=== PATIENT | male | born 1930 | race Native Hawaiian/Other Pacific Islander ===

== ENCOUNTER 2016-12-23 17:31 | Inpatient (IN) | payer MEDICARE, OTHER ==
[2016-12-23] MEDS ORDERED: TORAdol 30 mg Injection IV ONE (17:33)
[2016-12-23] MEDS ORDERED: Adacel Vial IM ONE ×2 (17:33→17:59)
[2016-12-23] MEDS ORDERED: BACIGUENT PACKET TP ONE (17:35)
--- NOTE | 2016-12-23 17:41 | ERPHSYRPT ---
- History of Present Illness Time Seen by Provider: 12/23/16 17:33 Source: patient, family Exam Limitations: no limitations Physician History: patient moving his chair on the wooden porch approximately 2 hrs ago today and fell onto his left hip from a standing position; now with pain in left hip only ; denies other injury or problems; hurts when he moves his left leg;cant bear wt. no loc; no blossom hx; no cp or inc sob; no abd pain or N&V; no incontinence; no numbness or paraesthsia Method of Injury: fell Occurred: just prior to arrival, this afternoon, hours ago (2) Quality: constant, aching Severity of Pain-Max: severe Severity of Pain-Current: moderate Lower Extremities Pain: hip: left Modifying Factors: Improves With: immobilization (helps), movement (aggravates) Associated Symptoms: unable to bear weight Allergies/Adverse Reactions: No Known Drug Allergies Allergy (Unverified 12/23/16 17:57) Home Medications: Acetaminophen [Tylenol Extra Strength] 1,000 mg PO DAILY 12/23/16 [History] Meloxicam 7.5 mg [Mobic 7.5 MG] 7.5 mg PO DAILY 12/23/16 [History] Vit A/C/E AC/Znox/Cupric Oxide [Eye Vitamin-Minerals Tablet] 1 each PO DAILY [History] Hx Tetanus, Diphtheria Vaccination/Date Given: No - Review of Systems Constitutional: No Symptoms Eyes: No Symptoms Ears, Nose, & Throat: No Symptoms Respiratory: No Cough, No Dyspnea, No Wheezing Cardiac: No Chest Pain, No Palpitations, No Syncope Abdominal/Gastrointestinal: No Abdominal Pain, No Nausea, No Vomiting, No Diarrhea Genitourinary Symptoms: No Symptoms Musculoskeletal: Fall, Injury (left hip), Joint Pain (left hip) Skin: Other (abrasion anterior right and left knee minor) Neurological: No Symptoms Psychological: No Symptoms Endocrine: No Symptoms Hematologic/Lymphatic: No Symptoms Immunological/Allergic: No Symptoms - Past Medical History Pertinent Past Medical History: Yes ENT History: Macular Degeneration Respiratory History: Emphysema - Past Surgical History Past Surgical History: Yes Genitourinary: Other (testicular resection) - Social History Smoking Status: Current some day smoker Exposure to second hand smoke: Yes Alcohol Use: None Drug Use: none Patient Lives Alone: No Significant Family History: no pertinent family hx - Nursing Vital Signs Nursing Vital Signs: Initial Vital Signs Temperature 97.9 F 12/23/16 17:33 Pulse Rate 111 H 12/23/16 17:33 Respiratory Rate 18 12/23/16 17:33 Blood Pressure 162/102 12/23/16 17:33 O2 Sat by Pulse Oximetry 95 12/23/16 17:33 Pain Scale Pain Intensity 3 - Physical Exam General Appearance: moderate distress, alert, thin Eyes, Ears, Nose, Throat Exam: normal ENT inspection, TMs normal, pharynx normal , moist mucous membranes Neck Exam: normal inspection, non-tender, supple, full range of motion, No meningismus, No JVD, No subcutaneous emphysema, No tenderness midline Cardiovascular/Respiratory Exam: chest non-tender, regular rate/rhythm, heart sounds normal, no ecchymosis, no JVD, no M/R/G, decreased breath sounds, No normal breath sounds, No no respiratory distress (mild tachypnea chronic) Gastrointestinal/Abdominal Exam: non-tender, soft, no organomegaly Back Exam: normal inspection, normal range of motion, No CVA tenderness, No vertebral tenderness, No rash Hips Exam: right: non-tender, normal range of motion, no evidence of injury, left: bone tenderness, limited range of motion, pain, bilateral: normal inspection, other (no pain or instability with pelvic rock ) Legs Exam: bilateral leg: non-tender, normal inspection, normal range of motion , no evidence of injury Knees Exam: bilateral knee: non-tender, normal inspection, normal range of motion, no evidence of injury, other (minor superficial abrasion bilateral ant) Ankle Exam: bilateral ankle: non-tender, normal inspection, normal range of motion, no evidence of injury Foot Exam: bilateral foot: non-tender, normal inspection, normal range of motion , no evidence of injury DTR - Lower Extremities Exam: knee (R): 4+, knee (L): 4+ Neuro/Tendon Exam: normal sensation, normal motor functions, normal tendon functions, responds to pain, no evidence tendon injury Mental Status Exam: alert, oriented x 3, cooperative Skin Exam: normal color, warm, dry, abrasion (minor bilateral distal naterior knees; non tender; also post left elbow), No rash SpO2 Interpretation: normal SpO2: 96 Oxygen Delivery: Room Air - Course Nursing assessment & vital signs reviewed: Yes - Radiology Exams Left Hip X-ray Interpretation: Interpreted by me, Nml Soft Tissues, Other (possible cortical irregualrity may be a non- displaced surgical neck fx left) Ordered Tests: Active Orders 24 hr Category Date Time Status Bedrest ROUTINE Activity 12/23/16 18:44 Ordered Admission/Status Order ROUTINE Care 12/23/16 18:42 Ordered Code Status Order ROUTINE Care 12/23/16 18:42 Ordered Fall Protocol ROUTINE Care 12/23/16 18:44 Ordered IV Care Q6H Care 12/23/16 18:42 Ordered IV Insertion STAT Care 12/23/16 17:33 Active Wound Care Routine Care 12/23/16 17:33 Active Regular Diet Diet 12/23/16 Breakfast Ordered HIP UNI (2V) INCL PEL IF DONE Stat Exams 12/23/16 17:33 Taken PELVIS WITHOUT CONTRAST [CT] Stat Exams 12/23/16 18:41 Ordered BMP Stat Lab 12/23/16 18:42 Ordered CBC W DIFF Stat Lab 12/23/16 18:42 Ordered Transfer Order Routine Transfer 12/23/16 Ordered Medication Summary Generic Name Dose Route Start Last Admin Trade Name Freq PRN Reason Stop Dose Admin Sodium Chloride 1,000 mls @ 50 mls/hr 12/23/16 17:45 12/23/16 18:05 Sodium Chloride 0.9% 1000 Ml IV 01/22/17 17:44 50 mls/hr .Q20H JAIME Administration Discontinued Medications Generic Name Dose Route Start Last Admin Trade Name Freq PRN Reason Stop Dose Admin Bacitracin 0.9 gm 12/23/16 17:35 12/23/16 18:04 Baciguent Packet TP 12/23/16 17:36 0.9 gm STAT ONE Administration Bacitracin Confirm 12/23/16 17:58 Baciguent Packet Administered 12/23/16 17:59 Dose 1 gm .ROUTE .STK-MED ONE Diphtheria/Tetanus/Acell Pertussis 0.5 ml 12/23/16 17:33 12/23/16 18:03 Adacel Vial IM 12/23/16 17:34 0.5 ml .ONCE ONE Administration Diphtheria/Tetanus/Acell Pertussis Confirm 12/23/16 17:59 Adacel Vial Administered 12/23/16 18:00 Dose 0.5 ml IM .STK-MED ONE Ketorolac Tromethamine 15 mg 12/23/16 17:33 12/23/16 18:05 Toradol 30 Mg Injection IV 12/23/16 17:34 15 mg STAT ONE Administration Ketorolac Tromethamine Confirm 12/23/16 17:58 Toradol 30 Mg Injection Administered 12/23/16 17:59 Dose 30 mg .ROUTE .STK-MED ONE - Progress Progress: improved (with pain meds), re-examined (after meds and xr) Progress Note: 12/23/16 17:43 will clean and dress abrasions with bacitracin; get xr; give pain meds and recheck; family at bedside; will update tetanus 12/23/16 18:37 x r suggest possible cortical irregularity left surgical neck jose be non- displaced fx; can't bear wt; will admit for pain control and get CT to evaluate for possible fracture; Dr Talbert consulted and will admit ; patient and family notified and concur Discussed with .: Bi (consulted and will admit) Will see patient in: hospital (observation) Counseled pt/family regarding: diagnosis, need for follow-up, rad results, smoking cessation - Departure Time of Disposition: 18:39 Departure Disposition: Observation Clinical Impression: Left hip pain Condition: Fair Critical Care Time: No Referrals: SABINO TALBERT MD [Primary Care Provider] -
[2016-12-23] MEDS ORDERED: Sodium Chloride 0.9% 1000 ML 1,000 ML ONE (17:58)
[2016-12-23] MEDS ORDERED: TORAdol 30 mg Injection ONE (17:58)
[2016-12-23] MEDS ORDERED: BACIGUENT PACKET ONE (17:58)
[2016-12-23] MEDS: Sodium Chloride 0.9% 1000 ML 1,000 ML IV SCH (18:05)
[2016-12-23 18:49] LABS: Mean Cell Volume 97.6 fl (78-100); Mean Corpuscular Hemoglobin 31.7 pg (26-32); Mean Platelet Volume 10.2 fl (6-9.5); Platelet Count 247 K/mm3 (150-450); Red Blood Count 4.16 M/mm3 (4.1-5.6); Red Cell Distribution Width 15.7 % (11.5-14.0); White Blood Count 16.4 K/mm3 (4.0-10.5)
[2016-12-23 19:11] LABS: ANION GAP 13.6 MEQ/L (5-15); BLOOD UREA NITROGEN 26 mg/dL (9-20); CHLORIDE 103 mEq/L (98-107); Carbon Dioxide 27.1 mEq/L (21-32); Glucose 102 MG/DL (70-110); Potassium 4.2 mEq/L (3.5-5.1); SODIUM 140 mEq/L (136-145)
[2016-12-23 20:18] LABS: ATYPICAL LYMPHS 2 %; Platelet Estimate NORMAL (NORMAL); Total Cells Counted 100
--- NOTE | 2016-12-23 21:40 | XRAY ---
Indication: Pain following fall. Comparison: None 2 views of the left hip demonstrates osteopenia and nondisplaced subcapital femur fracture confirmed on same-day CT exam. Elsewhere scattered vascular calcifications and chunky prostate calcifications.
--- NOTE | 2016-12-23 21:40 | XRAY ---
Indication: Left hip pain following fall. Suspect left femur neck fracture on same day radiograph. Multiple contiguous axial images obtained through the pelvis with special attention to the bony structures. Two-dimensional sagittal and coronal reformatted images obtained. Comparison: None Osseous structures are demineralized consistent with patient's age. There is a nondisplaced subcapital fracture involving the left femur, best seen on thin section imaging. No other fracture, dislocation, or suspicious bony lesions. Lumbosacral junction degenerative disc disease. There are extensive bilateral vascular calcifications. Enlarged prostate gland with chunky calcifications impresses on the base of the bladder. Remaining visualized noncontrasted soft tissues unremarkable. Impression: 1. Nondisplaced left subcapital fracture. 2. Osteopenia, lumbosacral degenerative disease, enlarged prostate gland, and scattered arteriosclerotic disease. Comment: Preliminary interpretation was made by [facility]. No discrepancy. CTDI 18.10
[2016-12-23] MEDS ORDERED: TYLENOL 325 MG PO PRN (21:47)
[2016-12-23] MEDS ORDERED: NORCO 5/325 MG PO PRN (21:47)
[2016-12-23] MEDS ORDERED: Mobic 7.5 MG PO ONE (22:30)
[2016-12-23] MEDS: DUONEB 0.5-3 MG/3 ml Neb IH SCH (23:16)
[2016-12-24] MEDS: DUONEB 0.5-3 MG/3 ml Neb IH SCH ×6 (03:20→22:42)
[2016-12-24 05:45] LABS: Mean Cell Volume 96.9 fl (78-100); Mean Corpuscular Hemoglobin 31.5 pg (26-32); Mean Platelet Volume 9.8 fl (6-9.5); Platelet Count 207 K/mm3 (150-450); Red Blood Count 3.52 M/mm3 (4.1-5.6); Red Cell Distribution Width 15.5 % (11.5-14.0); White Blood Count 12.2 K/mm3 (4.0-10.5)
--- NOTE | 2016-12-24 07:57 | PCM.HP ---
History of Present Illness - Chief Complaint Chief Complaint: left hip conusion - can;t bear wt History of Present Illness: is a 86 year old male who had a fall on his porch yesterday and was unable to bear weight after the fall. He has a prior history of copd but is off of oxygen at this time, was on it in the past. Continues to smoke 1 ppd, hasn't doctored much over the years. - Review of Systems Constitutional: No Fever, No Chills Respiratory: No Cough, No Short Of Breath Cardiac: No Chest Pain, No Edema, No Syncope Abdominal/Gastrointestinal: No Abdominal Pain, No Nausea, No Vomiting, No Diarrhea Musculoskeletal: Fall, Injury, Joint Pain Skin: No Rash All Other Systems: Reviewed and Negative Medications & Allergies Home Medications: Home Medication List Acetaminophen [Tylenol Extra Strength] 1,000 mg PO DAILY PRN 12/23/16 [History Confirmed 12/23/16] Meloxicam 7.5 mg [Mobic 7.5 MG] 7.5 mg PO HS 12/23/16 [History Confirmed 12/23/16] Vit A/C/E AC/Znox/Cupric Oxide [Eye Vitamin-Minerals Tablet] 1 each PO DAILY [History Confirmed 12/23/16] Allergies/Adverse Reactions: Allergies Allergy/AdvReac Type Severity Reaction Status Date / Time No Known Drug Allergies Allergy Unverified 12/23/16 17:57 - Past Medical History Past Medical History: Yes ENT History: Macular Degeneration Respiratory History: COPD, Emphysema Musculoskelatal History: Osteoarthritis Comment: Arthritis in back - Past Surgical History Past Surgical History: Yes Genitourinary Surgical Hx: Other Male Surgical History: Testicular Surgery Other Surgical History: states had testicle removed 60 years ago - Social History Smoking Status: Current every day smoker How long have you smoked: 75 years Exposure to second hand smoke: Yes Alcohol: Daily Drug Use: none Significant Family History: no pertinent family hx - Physical Exam Vital Signs: Vital Signs - 24 hr Temp Pulse Resp BP BP Pulse Ox 12/24/16 07:34 97.8 F 74 20 108/57 96 12/24/16 06:55 73 18 97 12/24/16 04:00 97.8 F 85 16 109/57 95 12/24/16 03:21 83 16 93 L 12/24/16 00:00 97.8 F 77 16 90/57 92 L 12/23/16 23:17 106 H 16 97 12/23/16 20:23 111 H 16 98 12/23/16 20:00 97.9 F 111 H 16 122/72 98 12/23/16 19:41 98.5 F 114 H 17 87/57 95 12/23/16 18:47 108 H 16 122/72 94 L 12/23/16 18:44 96 12/23/16 17:33 97.9 F 111 H 18 162/102 95 Oxygen-Last 24 hours O2 Percentage 2 Liters = 28% O2 Percentage 2 Liters = 28% O2 Percentage 2 Liters = 28% General Appearance: no apparent distress, alert Respiratory Exam: normal breath sounds, lungs clear, No respiratory distress Cardiovascular Exam: regular rate/rhythm, normal heart sounds, normal peripheral pulses Gastrointestinal/Abdomen Exam: soft, normal bowel sounds, No tenderness, No mass Extremity Exam: other (left hip no pain with int/ext rotation) Skin Exam: normal color, warm, dry, No rash Results - Labs Lab/Micro Results: Lab Results-Last 24 Hours 12/24/16 12/24/16 Range/Units 05:16 05:16 WBC 12.2 H (4.0-10.5) K/mm3 RBC 3.52 L (4.1-5.6) M/mm3 Hgb 11.1 L (12.5-18.0) gm/dl Hct 34.1 L (42-50) % MCV 96.9 (78-100) fl MCH 31.5 (26-32) pg MCHC 32.6 (32-36) g/dl RDW 15.5 H (11.5-14.0) % Plt Count 207 (150-450) K/mm3 MPV 9.8 H (6-9.5) fl Prealbumin 20.3 (18.0-35.7) mg/dL - Other Procedures and Tests Respiratory Therapy 12/23/16 19:49 Oxygen NASAL CANNULA 2 lpm 12/23/16 20:33 Respiratory Nebulizer Q4H 12/24/16 07:51 EKG ROUTINE Assessment/Plan (1) Subcapital fracture of left hip Current Visit: Yes Status: Acute Assessment & Plan: ortho consult pending but unlikely to require intervention, might need a rehab stay depending on mobility/weight bearing status etc. Code(s): S72.012A - UNSP INTRACAPSULAR FRACTURE OF LEFT FEMUR, INIT FOR CLOS FX (2) COPD (chronic obstructive pulmonary disease) Current Visit: Yes Status: Acute Assessment & Plan: continue oxygen, nebs (3) Tobacco abuse disorder Current Visit: Yes Status: Acute Assessment & Plan: nicotine patch Code(s): Z72.0 - TOBACCO USE
[2016-12-24] MEDS: NICODERM CQ 14 MG TOP SCH (09:26)
[2016-12-24] MEDS: Ocuvite Tablet PO SCH (09:28)
[2016-12-24] MEDS ORDERED: VIT A PO SCH (10:00)
[2016-12-24] MEDS ORDERED: CUPRIC OXIDE PO SCH (10:00)
[2016-12-24] MEDS ORDERED: E AC PO SCH (10:00)
[2016-12-24] MEDS ORDERED: [UNRECOGNIZED DRUG - OTHER] PO SCH (10:00)
[2016-12-24] MEDS ORDERED: ZNOX PO SCH (10:00)
[2016-12-24] MEDS ORDERED: Lactated Ringers 1,000 ML IV SCH ×2 (14:30→20:00)
[2016-12-24] MEDS ORDERED: CEFAZOLIN 2 GM-D5W BAG** 2 GM/50 ML ML IV SCH (15:00)
[2016-12-24] MEDS ORDERED: Pepcid 20 MG VIAL IV SCH (15:00)
[2016-12-24] MEDS ORDERED: SUBLIMAZE 100 MCG/2 ML IV ONE (16:14)
[2016-12-24] MEDS ORDERED: Ephedrine Sulfate 50 MG/ML IV ONE (16:14)
[2016-12-24] MEDS ORDERED: Versed 2 MG/2 ML Injection IV ONE (16:14)
[2016-12-24] MEDS ORDERED: DIPRIVAN 200 MG/20 ML IV ONE (16:14)
[2016-12-24] MEDS ORDERED: Lactated Ringers 1,000 ML IV ONE (18:14)
--- NOTE | 2016-12-24 18:54 | XRAY ---
Indication: Pain following fall. Comparison: None 2 views of the left elbow demonstrates osteopenia, olecranon process osteophyte, and a tiny cortical fracture involving the posterior trochlear notch with adjacent soft tissue swelling. No other bony, articular, or soft tissue abnormalities. Comment: Preliminary interpretation was made by [facility]. Fracture not reported.
--- NOTE | 2016-12-24 19:17 | XRAY ---
Indication: Left hip fracture surgery. Intraoperative fluoroscopy was provided for 3 minutes 21 seconds. 4 digital spot images submitted for interpretation demonstrates 3 orthopedic screws fixating a subcapital fracture. Correlate with intraoperative findings/report.
[2016-12-24] MEDS ORDERED: KEFZOL 1 GM/50 ML PREMIX** 1 GM/50 ML IVPB IV ONE (20:06)
[2016-12-24] MEDS ORDERED: KEFZOL 1 GM IV SCH (22:00)
[2016-12-24] MEDS ORDERED: Mobic 7.5 MG PO SCH (22:00)
[2016-12-24] MEDS ORDERED: MORPHINE SULFATE 4 MG INJ IV PRN (22:03)
[2016-12-25] MEDS: DUONEB 0.5-3 MG/3 ml Neb IH SCH ×6 (02:47→23:09)
[2016-12-25 05:40] LABS: BASOPHIL % 0.2 % (0.0-0.4); Eosinophil % 3.2 % (0.00-5.0); Granulocytes % 78.2 % (36.0-66.0); Lymphocytes % 9.1 % (24.0-44.0); Mean Cell Volume 98.4 fl (78-100); Mean Corpuscular Hemoglobin 31.6 pg (26-32); Mean Platelet Volume 9.9 fl (6-9.5); Monocytes % 9.3 % (0.0-12.0); Platelet Count 168 K/mm3 (150-450); Red Cell Distribution Width 15.7 % (11.5-14.0)
[2016-12-25 06:02] LABS: ANION GAP 10.6 MEQ/L (5-15); BLOOD UREA NITROGEN 19 mg/dL (9-20); CHLORIDE 105 mEq/L (98-107); Carbon Dioxide 26.4 mEq/L (21-32); Glucose 83 MG/DL (70-110); Potassium 3.5 mEq/L (3.5-5.1); SODIUM 139 mEq/L (136-145)
--- NOTE | 2016-12-25 07:45 | OP ---
SURGERY DATE/TIME: 12/24/2016 7549 PREOPERATIVE DIAGNOSIS: Unstable fracture left proximal femur. POSTOPERATIVE DIAGNOSIS: Unstable fracture left proximal femur. PROCEDURES: 1) Open reduction internal fixation left proximal femur. 2) Fluoroscopy per surgeon. 3) Long leg splint. SURGEON: Eitan Dutton D.O. GLYCERIN OPERATOR: None. ANESTHESIA: Spinal per MANAGER OF FINANCIAL. ESTIMATED BLOOD LOSS: Minimal. DESCRIPTION OF PROCEDURE: The patient is taken to the operative suite and given a spinal, placed supine. All neurovascular areas well padded. Sterile prep and drape done to the left hip. Fracture table applied. X-ray came in and took some views and we noticed a good reduction on the femoral neck. The patient has degenerative joint disease of the hip. Sterile prep done followed by entry point made with incision and then followed by modified reduction done in the bone and then placement of noncannulated Steinmann pins terminally threaded, 3.2 mm placed into femoral neck and head, two to three screws were placed. Cannulated 6.5 mm into the proximal femur. This fracture fixation was felt to be good disallowing rotation, distraction and varus deformity to the neck of the femur. Once this was finished the screws had been delivered into subchondral bone after opening up the outer cortex with a cannulated drill. Under power and then using the hand tightening of the screws were delivered into position over the drill to subchondral bone. AP and lateral views looked good. Wounds irrigated with saline. Closed with 0 Vicryl and chilo in the skin and then modified long leg splint applied to the leg. The patient was sent on to the recovery room in satisfactory condition. Final films were reviewed and looked good. I spoke with the family about the merits of the case.
[2016-12-25] MEDS: NICODERM CQ 14 MG TOP SCH (07:53)
--- NOTE | 2016-12-25 08:08 | PCM.NOTE ---
Date and Time: 12/25/16802 Subjective Assessment: patient doing well at this time, pain is well controlled at this time and eating breakfast. states elbow is more painful than his hip but not currently Objective Exam General Appearance: no apparent distress, alert Respiratory Exam: normal breath sounds, lungs clear, No respiratory distress Cardiovascular Exam: regular rate/rhythm, normal heart sounds Gastrointestinal/Abdomen Exam: soft, No tenderness, No mass Extremity Exam: other (dressing c/d/i left lateral hip. left elbow wrapped in gauze, able to use arm to feed himself) OBJECTIVE DATA Vital Signs: Vital Signs - 24 hr Temp Pulse Resp BP BP Pulse Ox 12/25/16 07:44 98.4 F 86 18 119/58 93 L 12/25/16 06:45 86 18 93 L 12/25/16 04:00 97.8 F 76 18 110/57 97 12/25/16 02:49 88 22 12/24/16 23:33 98.5 F 113 H 17 122/56 94 L 12/24/16 22:43 104 H 20 96 12/24/16 22:15 107 H 16 108/59 12/24/16 21:45 118 H 20 141/62 12/24/16 21:15 118 H 16 119/62 12/24/16 20:20 112 H 22 91 L 12/24/16 20:15 97 H 20 121/65 12/24/16 20:00 104 H 18 132/60 91 L 12/24/16 19:45 100 H 16 117/59 12/24/16 19:30 97.4 F 84 16 124/61 91 L 12/24/16 16:00 98 F 84 18 108/57 97 12/24/16 14:59 84 18 97 12/24/16 14:24 84 18 108/57 97 12/24/16 11:00 84 18 97 12/24/16 10:58 98 F 84 20 97 Oxygen-Last 24 hours O2 Percentage 2 Liters = 28% O2 Percentage 2 Liters = 28% O2 Percentage 2 Liters = 28% O2 Percentage 2 Liters = 28% O2 Percentage 2 Liters = 28% O2 Percentage 2 Liters = 28% O2 Percentage 2 Liters = 28% O2 Percentage 2 Liters = 28% O2 Percentage 2 Liters = 28% O2 Percentage 2 Liters = 28% O2 Percentage 2 Liters = 28% Pain Assessment - Last Documented Pain Intensity 3 Pain Scale Used 0-10 Pain Scale Intake and Output: Intake & Output 12/22/16 12/23/16 12/24/16 12/25/16 11:59 11:59 11:59 11:59 Intake Total 0 889 Output Total 730 675 Balance -730 214 Weight 48.308 kg 48.308 kg Lab Results: Lab Results-Last 24 Hours 12/25/16 12/25/16 Range/Units 05:05 05:05 WBC 12.0 H (4.0-10.5) K/mm3 RBC 3.10 L (4.1-5.6) M/mm3 Hgb 9.8 L (12.5-18.0) gm/dl Hct 30.5 L (42-50) % MCV 98.4 (78-100) fl MCH 31.6 (26-32) pg MCHC 32.1 (32-36) g/dl RDW 15.7 H (11.5-14.0) % Plt Count 168 (150-450) K/mm3 MPV 9.9 H (6-9.5) fl Gran % 78.2 H (36.0-66.0) % Lymphocytes % 9.1 L (24.0-44.0) % Monocytes % 9.3 (0.0-12.0) % Eosinophils % 3.2 (0.00-5.0) % Basophils % 0.2 (0.0-0.4) % Basophils # 0.03 (0-0.4) Sodium 139 (136-145) mEq/L Potassium 3.5 (3.5-5.1) mEq/L Chloride 105 (98-107) mEq/L Carbon Dioxide 26.4 (21-32) mEq/L Anion Gap 10.6 (5-15) MEQ/L BUN 19 (9-20) mg/dL Creatinine 0.68 (0.55-1.30) mg/dl Estimated GFR > 60 ML/MIN Glucose 83 (70-110) MG/DL Calcium 8.1 L (8.5-10.1) mg/dL Radiology Exams: Radiology Procedures Category Date Time Status ALBERTO FLUROSCOPY UP TO 1 HOUR Routine Exams 12/24/16 Taken ELBOW (2 VIEW) Stat Exams 12/24/16 Completed HIP UNI (2V) INCL PEL IF DONE Routine Exams 12/24/16 Completed Assessment/Plan (1) Subcapital fracture of left hip Current Visit: Yes Status: Acute Assessment & Plan: POD #1, doing well. will likely need a rehab stay upon discharge due to mobility and nutritional status etc Code(s): S72.012A - UNSP INTRACAPSULAR FRACTURE OF LEFT FEMUR, INIT FOR CLOS FX (2) Closed fracture of trochlea of humerus Current Visit: Yes Status: Acute Code(s): S42.493A - OTH DISP FX OF LOWER END OF UNSP HUMERUS, INIT FOR CLOS FX (3) COPD (chronic obstructive pulmonary disease) Current Visit: Yes Status: Acute (4) Tobacco abuse disorder Current Visit: Yes Status: Acute Code(s): Z72.0 - TOBACCO USE
[2016-12-25] MEDS: Ocuvite Tablet PO SCH (09:25)
[2016-12-25] MEDS ORDERED: KEFZOL 1 GM/50 ML PREMIX** 1 GM/50 ML IVPB IV SCH (10:00)
[2016-12-25] MEDS: NORCO 5/325 MG PO PRN ×2 (13:04→23:22)
[2016-12-25] MEDS: Sodium Chloride 0.9% 1000 ML 1,000 ML IV SCH (13:07)
--- NOTE | 2016-12-25 15:00 | XRAY ---
Intraoperative fluoroscopy was provided for 3 minutes 21 seconds.
[2016-12-25] MEDS: ENOXAPARIN SODIUM SQ SCH (17:38)
[2016-12-26] MEDS: DUONEB 0.5-3 MG/3 ml Neb IH SCH ×6 (03:08→22:47)
[2016-12-26] MEDS: NICODERM CQ 14 MG TOP SCH (07:43)
[2016-12-26] MEDS: NORCO 5/325 MG PO PRN (07:44)
--- NOTE | 2016-12-26 08:44 | PCM.NOTE ---
Date and Time: 12/26/16 08 Subjective Assessment: Pt c/o 6/10 pain in the L upper leg. C/o "pain all over" last night which made it hard for him to sleep. Ramonita po well. C/o L heel pain, states he usually props his heel on a pillow. C/o some cough this morning. - Review of Systems Constitutional: No Fever Musculoskeletal: Other (leg pain) Objective Exam General Appearance: no apparent distress, other ([place]) Neurologic Exam: alert, oriented x 3, cooperative Skin Exam: warm, dry, other (L knee with abrasion inferior to knee with some dried blood) Respiratory Exam: normal breath sounds, No crackles/rales, No rhonchi, No wheezing Cardiovascular Exam: normal heart sounds, tachycardia, No murmur OBJECTIVE DATA Vital Signs: Vital Signs - 24 hr Temp Pulse Resp BP Pulse Ox 12/26/16 07:07 78 18 98 12/26/16 06:49 98 F 80 20 112/62 96 12/26/16 04:00 97.9 F 83 22 108/57 94 L 12/26/16 03:00 79 18 99 12/26/16 00:00 97.9 F 92 H 18 114/58 97 12/25/16 23:00 92 H 18 97 12/25/16 20:00 97.7 F 74 20 126/59 97 12/25/16 19:00 88 18 97 12/25/16 15:57 98.1 F 87 20 112/57 98 12/25/16 15:16 94 L 12/25/16 12:00 97.5 F 87 20 97/54 99 12/25/16 10:42 90 20 93 L Oxygen-Last 24 hours O2 Percentage 2 Liters = 28% O2 Percentage 2 Liters = 28% O2 Percentage 2 Liters = 28% O2 Percentage 2 Liters = 28% O2 Percentage 2 Liters = 28% Pain Assessment - Last Documented Pain Intensity 6 Pain Scale Used 0-10 Pain Scale Intake and Output: Intake & Output 12/23/16 12/24/16 12/25/16 12/26/16 11:59 11:59 11:59 11:59 Intake Total 889 560 Output Total 550 2850 Balance 339 -2290 Weight 48.308 kg Multi-Disciplinary Progress Notes: Multi-Disciplinary Progress Notes 12/25/16 10:17 Case Management Note by Laura Morrison REFERRAL TO MMM PER PT/FAMILY REQUEST. SPOKE WITH ALEXIS. TO MEL LATER TODAY. Initialized on 12/25/16 10:17 - END OF NOTE Assessment/Plan (1) Subcapital fracture of left hip Current Visit: Yes Status: Acute Qualifiers: Encounter type: subsequent encounter Fracture type: closed Fracture healing: with routine healing Qualified Code(s): S72.012D - Unspecified intracapsular fracture of left femur, subsequent encounter for closed fracture with routine healing Assessment & Plan: POD #2. Will increase po pain meds from norco 5/325 q6h to norco 10/325 q4h prn. Code(s): S72.012A - UNSP INTRACAPSULAR FRACTURE OF LEFT FEMUR, INIT FOR CLOS FX (2) Heel pain Current Visit: Yes Status: Acute Qualifiers: Laterality: left Qualified Code(s): M79.672 - Pain in left foot Assessment & Plan: Will have nursing remove his DANIEL hose and sock, carefully - this is the surgical leg - then re-dress as appropriate and prop the leg on a pillow. Code(s): M79.673 - PAIN IN UNSPECIFIED FOOT (3) Cough Current Visit: Yes Status: Acute Assessment & Plan: Incentive spirometry. Lung sounds benign. Code(s): R05 - COUGH (4) COPD (chronic obstructive pulmonary disease) Current Visit: Yes Status: Chronic Qualifiers: COPD type: emphysema Emphysema type: unspecified Qualified Code(s): J43.9 - Emphysema, unspecified
[2016-12-26] MEDS: Ocuvite Tablet PO SCH (10:32)
[2016-12-26] MEDS: Norco 10/325 MG Tablet PO PRN (13:00)
--- NOTE | 2016-12-26 14:05 | XRAY ---
Indication: pen[facility]entiary placement. Comparison: September 13, 2016. Portable chest remains hyperinflated and clear with incidental calcified hilar nodes. Heart is not enlarged. Vascularity normal. Bony thorax intact again with osteopenia and degenerative changes. Impression: Stable nonacute chest with chronic features.
[2016-12-26] MEDS: ENOXAPARIN SODIUM SQ SCH (17:30)
[2016-12-26] MEDS: Zofran 4 MG/2 ML VIAL IV PRN (21:18)
[2016-12-27] MEDS: DUONEB 0.5-3 MG/3 ml Neb IH SCH ×4 (03:00→15:00)
[2016-12-27] MEDS: Norco 10/325 MG Tablet PO PRN ×2 (03:19→15:14)
[2016-12-27 05:55] LABS: BASOPHIL % 0.2 % (0.0-0.4); Eosinophil % 2.5 % (0.00-5.0); Granulocytes % 73.1 % (36.0-66.0); Lymphocytes % 11.1 % (24.0-44.0); Mean Platelet Volume 9.9 fl (6-9.5); Monocytes % 13.1 % (0.0-12.0); Platelet Count 189 K/mm3 (150-450); Red Blood Count 3.06 M/mm3 (4.1-5.6); Red Cell Distribution Width 15.3 % (11.5-14.0); White Blood Count 8.5 K/mm3 (4.0-10.5)
[2016-12-27 06:31] LABS: ANION GAP 10.5 MEQ/L (5-15); BLOOD UREA NITROGEN 19 mg/dL (9-20); CHLORIDE 103 mEq/L (98-107); Carbon Dioxide 27.6 mEq/L (21-32); Glucose 110 MG/DL (70-110); Potassium 4.3 mEq/L (3.5-5.1); SODIUM 137 mEq/L (136-145)
[2016-12-27] MEDS: Ocuvite Tablet PO SCH (07:54)
[2016-12-27] MEDS: NICODERM CQ 14 MG TOP SCH (07:54)
[2016-12-27] MEDS: Zofran 4 MG/2 ML VIAL IV PRN (07:58)
[2016-12-27] MEDS ORDERED: DULCOLAX 5 MG PO PRN (09:17)
--- NOTE | 2016-12-27 09:25 | PCM.DS ---
Discharge Summary Date of Admission: 12/24/16 14:10 Admitting Physician: SABINO TALBERT Primary Care Provider: SABINO TALBERT Allergies Allergies No Known Drug Allergies Allergy (Unverified 12/23/16 17:57) Hospital Summary - Hospital Course Hospital Course: patient doing well s/p ORIF of left subcapital femur fracture, pain is controlled. he has had some nausea but no bm since admission. ordered dulcolax today. needs rehab for femur fracture so will go to [facility] - Vitals & Intake/Output Vital Signs: Vital Signs Temperature 98 F 12/27/16 07:07 Pulse Rate 91 H 12/27/16 07:07 Respiratory Rate 20 12/27/16 07:07 Blood Pressure 103/60 12/27/16 07:07 O2 Sat by Pulse Oximetry 98 12/27/16 07:07 Oxygen-Last Documented O2 Percentage 2 Liters = 28% Intake & Output: Intake & Output 12/24/16 12/25/16 12/26/16 12/27/16 11:59 11:59 11:59 11:59 Intake Total 889 560 420 Output Total 550 2850 1450 Balance 339 -9170 -1030 Weight 48.308 kg - Lab Result Diagrams: 12/27/16 05:13 12/27/16 05:13 Lab Results-Last 24 Hrs: Lab Results-Last 24 Hours 12/27/16 12/27/16 Range/Units 05:13 05:13 WBC 8.5 (4.0-10.5) K/mm3 RBC 3.06 L (4.1-5.6) M/mm3 Hgb 9.8 L (12.5-18.0) gm/dl Hct 30.0 L (42-50) % MCV 98.0 (78-100) fl MCH 32.0 (26-32) pg MCHC 32.7 (32-36) g/dl RDW 15.3 H (11.5-14.0) % Plt Count 189 (150-450) K/mm3 MPV 9.9 H (6-9.5) fl Gran % 73.1 H (36.0-66.0) % Lymphocytes % 11.1 L (24.0-44.0) % Monocytes % 13.1 H (0.0-12.0) % Eosinophils % 2.5 (0.00-5.0) % Basophils % 0.2 (0.0-0.4) % Basophils # 0.02 (0-0.4) Sodium 137 (136-145) mEq/L Potassium 4.3 (3.5-5.1) mEq/L Chloride 103 (98-107) mEq/L Carbon Dioxide 27.6 (21-32) mEq/L Anion Gap 10.5 (5-15) MEQ/L BUN 19 (9-20) mg/dL Creatinine 0.64 (0.55-1.30) mg/dl Estimated GFR > 60 ML/MIN Glucose 110 (70-110) MG/DL Calcium 8.5 (8.5-10.1) mg/dL Micro Results-Entire Visit: Microbiology 12/24/16 17:30 - Final Catherized NO GROWTH - Radiology Exams Ordered Rad Exams-Entire Visit: Radiology Procedures Category Date Time Status CHEST 1 VIEW (PORTABLE) Routine Exams 12/26/16 13:38 Completed - Procedures and Test Procedures and Tests throughout Hospitalization: Therapy Orders & Screens 12/24/16 21:50 PT Eval & Treat (MD Order) ROUTINE Evaluate: No Treat: Yes Reason for Eval:: partial weight bearing and walker training daily pt had hip surgery Diagnosis: left hip conusion - can;t bear wt 12/24/16 22:42 Incentive Spirometry Assessmen TID Comment: Diagnosis: left hip conusion - can;t bear wt Discharge Exam General Appearance: no apparent distress, alert Respiratory Exam: normal breath sounds, lungs clear, No respiratory distress Cardiovascular Exam: regular rate/rhythm, normal heart sounds Gastrointestinal/Abdomen Exam: soft, No tenderness, No mass Extremity Exam: other (dressing c/d/i, left hip) Final Diagnosis/Problem List - Final Discharge Diagnosis/Problem (1) Subcapital fracture of left hip Current Visit: Yes Status: Acute Assessment & Plan: discharge to [facility] for rehab (2) Closed fracture of trochlea of humerus Current Visit: Yes Status: Acute (3) COPD (chronic obstructive pulmonary disease) Current Visit: Yes Status: Chronic (4) Tobacco abuse disorder Current Visit: Yes Status: Acute - Discharge Disposition: [place] TO [facility] Condition: Fair Prescriptions: New Docusate Sodium 100 mg [Colace 100 MG] 100 mg PO BID #60 capsule Bisacodyl 5 mg [Dulcolax 5 mg] 5 mg PO QDP PRN tablet.ec PRN Reason: Constipation Albuterol/Ipratropium 3ml Neb* [DUONEB 0.5-3 MG/3 ml Neb] 3 ml IH Q4-6HPRN PRN #100 ampul.neb PRN Reason: Shortness Of Breath Hydrocodone/APAP 10/325 mg [Edmonson 10/325 MG Tablet] 1 tab PO Q4H PRN PRN #60 tablet PRN Reason: Pain Acetaminophen 325 mg [Tylenol 325 mg] 650 mg PO Q6H PRN PRN #60 tablet PRN Reason: Pain And/Or Fever Continue Meloxicam 7.5 mg [Mobic 7.5 MG] 7.5 mg PO HS Vit A/C/E AC/Znox/Cupric Oxide [Eye Vitamin-Minerals Tablet] 1 each PO DAILY Discontinued Acetaminophen [Tylenol Extra Strength] 1,000 mg PO DAILY PRN PRN Reason: Pain Follow up with: SABINO TALBERT MD [Primary Care Provider] -
[2016-12-27 10:48] VITALS: BP 117/64
[2016-12-27 15:06] VITALS: PULSE 98; O2SAT 97
== END 2016-12-27 15:20 | DRG 481 ==
LOC: ED 17:31 → MED SURG 19:23 → OBSVTOIN 12-24 14:10
PROVIDERS: ADMIT Family Medicine; ATTEND Family Medicine
PROC: 0QS704Z Reposition Left Upper Femur with Internal Fixation Device, Open Approach (ICD-10-PCS; principal; 2016-12-24)
PROC: 2W3RX1Z Immobilization of Left Lower Leg using Splint (ICD-10-PCS; 2016-12-24)
DX: S72.012A Unspecified intracapsular fracture of left femur, initial encounter for closed fracture (principal); S42 Fracture of shoulder and upper arm; S72.012D Unspecified intracapsular fracture of left femur, subsequent encounter for closed fracture with routine healing; M79.672 Pain in left foot; J44.9 Chronic obstructive pulmonary disease, unspecified; M46.90 Unspecified inflammatory spondylopathy, site unspecified; Z72.0 Tobacco use; W01.0XXA Fall on same level from slipping, tripping and stumbling without subsequent striking against object, initial encounter; Y92.89 Other specified places as the place of occurrence of the external cause
CPT/HCPCS: 01210; 36000; 36415; 71010; 72192; 73070; 73502; 76000; 80048; 84134; 85025; 85027; 87086; 90471; 90715; 93005; 94640; 94760; 96360; 96361; 96374; 99100; 99140; 99285; G0378; J0690; J1650; J1885; J2250; J2270; J2405; J2704; J3010; 97110-GP; A9270-GY

== ENCOUNTER 2017-03-18 10:45 | Inpatient (IN) | payer MEDICARE, OTHER ==
[2017-03-18] MEDS ORDERED: Sodium Chloride 0.9% 1000 ML 1,000 ML IV STA ×2 (10:57→11:43)
[2017-03-18] MEDS ORDERED: TYLENOL 325 MG PO STA (10:57)
[2017-03-18] MEDS ORDERED: DUONEB 0.5-3 MG/3 ml Neb IH ONE ×2 (11:05→11:07)
[2017-03-18] MEDS ORDERED: TYLENOL 325 MG ONE (11:08)
[2017-03-18] MEDS ORDERED: Sodium Chloride 0.9% 1000 ML 1,000 ML ONE ×2 (11:08→12:07)
[2017-03-18 11:22] LABS: Mean Cell Volume 95.9 fl (78-100); Mean Platelet Volume 9.8 fl (6-9.5); Platelet Count 242 K/mm3 (150-450); Red Blood Count 3.91 M/mm3 (4.1-5.6); Red Cell Distribution Width 14.6 % (11.5-14.0); White Blood Count 20.7 K/mm3 (4.0-10.5)
[2017-03-18 11:25] LABS: Mean Corpuscular Hemoglobin 30.6 pg (26-32)
--- NOTE | 2017-03-18 11:37 | ERPHSYRPT ---
- History of Present Illness Time Seen by Provider: 03/18/17 11:34 Source: patient, family Exam Limitations: no limitations Patient Subjective Stated Complaint: patient fell at home has been wek for past couple days, some respiratory issues, not eating or drinking well, left leg numb Triage Nursing Assessment: pt alert and oriented x3, able to abulate with assistance, assist of 2, lung sounds course rhonki in bases, some crackles throughout, patient intermitant cough, some mucus coming up Physician History: patient fell at home has been weak for past couple days, some respiratory issues , not eating or drinking well, left leg numb 86-year-old male with significant history of COPD, hypertension, recently had a hip surgery on the left side with open reduction and internal fixation started feeling weak for last few days. Also complaining of cough, fever and chills. He has also not eating well. He lives by himself in today when he son went to check on him. He found him ready weak, so he brought him into the emergency room. Timing/Duration: day(s) Associated Symptoms: loss of appetite, malaise, weakness, other (fall at home) Allergies/Adverse Reactions: No Known Drug Allergies Allergy (Unverified 12/23/16 17:57) Home Medications: Meloxicam 7.5 mg [Mobic 7.5 MG] 7.5 mg PO HS 12/23/16 [History] Vit A/C/E AC/Znox/Cupric Oxide [Eye Vitamin-Minerals Tablet] 1 each PO DAILY [History] Hx Tetanus, Diphtheria Vaccination/Date Given: No Hx Influenza Vaccination/Date Given: Yes Hx Pneumococcal Vaccination/Date Given: Yes Immunizations Up to Date: Yes - Review of Systems Constitutional: Fever, Chills, Fatigue, Lethargy, Malaise Eyes: No Symptoms Ears, Nose, & Throat: No Symptoms Respiratory: Cough, Dyspnea, Dyspnea on Exertion (LOO), Wheezing Cardiac: No Chest Pain, No Edema, No Syncope Abdominal/Gastrointestinal: No Abdominal Pain, No Nausea, No Vomiting, No Diarrhea Genitourinary Symptoms: No Dysuria Musculoskeletal: No Back Pain, No Neck Pain Skin: No Rash Neurological: No Dizziness, No Focal Weakness, No Sensory Changes Psychological: No Symptoms Endocrine: No Symptoms All Other Systems: Reviewed and Negative - Past Medical History Pertinent Past Medical History: Yes ENT History: Macular Degeneration Respiratory History: COPD, Emphysema Musculoskeletal History: Osteoarthritis Other Medical History: Arthritis in back - Past Surgical History Past Surgical History: Yes Genitourinary: Other Male Surgical History: Testicular Surgery Other Surgical History: states had testicle removed 60 years ago - Social History Smoking Status: Current every day smoker How long have you smoked: 75 years Exposure to second hand smoke: Yes Alcohol Use: None Drug Use: none Patient Lives Alone: No Significant Family History: no pertinent family hx - Nursing Vital Signs Nursing Vital Signs: Initial Vital Signs Temperature 99 F 03/18/17 10:46 Pulse Rate 124 H 03/18/17 10:46 Respiratory Rate 16 03/18/17 10:46 Blood Pressure 124/68 03/18/17 10:46 O2 Sat by Pulse Oximetry 98 03/18/17 10:46 Pain Scale Pain Intensity 4 - Physical Exam General Appearance: mild distress, alert Eye Exam: PERRL/EOMI, eyes nml inspection Ears, Nose, Throat Exam: normal ENT inspection, TMs normal, pharynx normal, moist mucous membranes Neck Exam: normal inspection, non-tender, supple, full range of motion Respiratory Exam: respiratory distress, diminished breath sounds, accessory muscle use, crackles/rales, rhonchi, wheezing Cardiovascular Exam: regular rate/rhythm, normal heart sounds, normal peripheral pulses Gastrointestinal/Abdomen Exam: soft, normal bowel sounds, No tenderness, No mass Back Exam: normal inspection, normal range of motion, No CVA tenderness, No vertebral tenderness Extremity Exam: normal inspection, normal range of motion, pelvis stable Neurologic Exam: alert, oriented x 3, cooperative, normal mood/affect, nml cerebellar function, nml station & gait, sensation nml, No motor deficits Skin Exam: normal color, warm, dry, No rash Lymphatic Exam: No adenopathy SpO2: 94 Oxygen Delivery: Nasal Cannula - Course Nursing assessment & vital signs reviewed: Yes Ordered Tests: Active Orders 24 hr Category Date Time Status IV Insertion STAT Care 03/18/17 11:06 Active Oxygen-ED Only NASAL CANNULA 2 lpm Care 03/18/17 11:05 Active CHEST 1 VIEW (PORTABLE) Stat Exams 03/18/17 11:37 Taken HIP UNI (2V) INCL PEL IF DONE Stat Exams 03/18/17 Taken CBC W DIFF Stat Lab 03/18/17 11:11 Completed CMP Stat Lab 03/18/17 11:11 Completed Lactic Acid Stat Lab 03/18/17 11:43 Results Manual Differential NC Stat Lab 03/18/17 11:11 Completed Respiratory Nebulizer STAT RT 03/18/17 11:05 Completed Transfer Order Routine Transfer 03/18/17 Ordered Medication Summary Generic Name Dose Route Start Last Admin Trade Name Teresa PRN Reason Stop Dose Admin Sodium Chloride 1,000 mls @ 999 mls/hr 03/18/17 11:43 03/18/17 12:12 Sodium Chloride 0.9% 1000 Ml IV 03/18/17 12:43 999 mls/hr .Q1H1M STA Administration Azithromycin 500 mg in 250 mls @ 250 mls/hr 03/18/17 12:17 03/18/17 12:18 Zithromax 500 Mg/ 250 Ml Nacl Premix IV 03/18/17 13:16 250 mls/hr STAT STA Administration Discontinued Medications Generic Name Dose Route Start Last Admin Trade Name Teresa PRN Reason Stop Dose Admin Acetaminophen 650 mg 03/18/17 10:57 03/18/17 11:11 Tylenol 325 Mg PO 03/18/17 10:58 650 mg STAT STA Administration Acetaminophen Confirm 03/18/17 11:08 Tylenol 325 Mg Administered 03/18/17 11:09 Dose 650 mg .ROUTE .STK-MED ONE Albuterol/Ipratropium 3 ml 03/18/17 11:05 03/18/17 11:10 Duoneb 0.5-3 Mg/3 Ml Neb IH 03/18/17 11:06 3 ml STAT ONE Administration Albuterol/Ipratropium Confirm 03/18/17 11:07 Duoneb 0.5-3 Mg/3 Ml Neb Administered 03/18/17 11:08 Dose 3 ml IH .STK-MED ONE Sodium Chloride 1,000 mls @ 999 mls/hr 03/18/17 10:57 03/18/17 11:11 Sodium Chloride 0.9% 1000 Ml IV 03/18/17 11:57 999 mls/hr .Q1H1M STA Administration Sodium Chloride Confirm 03/18/17 11:08 Sodium Chloride 0.9% 1000 Ml Administered 03/18/17 11:09 Dose 1,000 mls @ ud .ROUTE .STK-MED ONE Ceftriaxone Sodium/Dextrose 1 g in 50 mls @ 100 mls/hr 03/18/17 11:43 12:12 Rocephin 1 Gm-D5w 50 Ml Bag IV 03/18/17 12:12 100 mls/hr STAT STA Administration Azithromycin Confirm 03/18/17 12:07 Zithromax 500 Mg/ 250 Ml Nacl Premix Administered 03/18/17 12:08 Dose 500 mg in 250 mls @ ud IV .STK-MED ONE Sodium Chloride Confirm 03/18/17 12:07 Sodium Chloride 0.9% 1000 Ml Administered 03/18/17 12:08 Dose 1,000 mls @ ud .ROUTE .STK-MED ONE Ceftriaxone Sodium/Dextrose Confirm 03/18/17 12:07 Rocephin 1 Gm-D5w 50 Ml Bag Administered 03/18/17 12:08 Dose 1 g in 50 mls @ ud IV .STK-MED ONE Lab/Rad Data: Laboratory Result Diagrams 03/18/17 11:11 03/18/17 11:11 Laboratory Results 03/18/17 03/18/17 03/18/17 Range/Units 11:43 11:11 11:11 WBC 20.7 H (4.0-10.5) K/mm3 RBC 3.91 L (4.1-5.6) M/mm3 Hgb 12.0 L (12.5-18.0) gm/dl Hct 37.5 L (42-50) % MCV 95.9 (78-100) fl MCH 30.6 (26-32) pg MCHC 32.0 (32-36) g/dl RDW 14.6 H (11.5-14.0) % Plt Count 242 (150-450) K/mm3 MPV 9.8 H (6-9.5) fl Segmented Neutrophils 89 H (36.-66.) % Band Neutrophils 1 (0.0-2.0) % Lymphocytes (Manual) 6 L (24-44) % Monocytes (Manual) 4 (0.0-12.0) % Differential Comment ABNORMAL Platelet Estimate NORMAL (NORMAL) Schistocytes 1+ Sodium 139 (136-145) mEq/L Potassium 4.4 (3.5-5.1) mEq/L Chloride 103 (98-107) mEq/L Carbon Dioxide 25.7 (21-32) mEq/L Anion Gap 14.2 (5-15) MEQ/L BUN 41 H (9-20) mg/dL Creatinine 0.82 (0.55-1.30) mg/dl Estimated GFR > 60 ML/MIN Glucose 223 H (70-110) MG/DL Lactic Acid 2.1 H (0.4-2.0) Calcium 8.6 (8.5-10.1) mg/dL Total Bilirubin 0.60 (0.2-1.0) mg/dL AST 24 (15-37) U/L ALT 24 (12-78) U/L Alkaline Phosphatase 89 (46-116) U/L Serum Total Protein 5.9 L (6.4-8.2) gm/dL Albumin 2.8 L (3.4-5.0) g/dL - Departure Time of Disposition: 12:29 Departure Disposition: In-patient Admission Clinical Impression: Pneumonia Qualifiers: Pneumonia type: due to other aerobic Gram-negative bacteria Laterality: left Lung location: lower lobe of lung Qualified Code(s): J15.6 - Pneumonia due to other Gram-negative bacteria Condition: Fair Critical Care Time: Yes Critical Care Time(excluding separately billable procedures): 30-74 minutes Referrals: SABINO TALBERT MD [Primary Care Provider] -
[2017-03-18] MEDS ORDERED: ROCEPHIN 1 Gm-D5w 50 ml Bag** 1 G/50 ML IVPB IV STA (11:43)
[2017-03-18 11:46] LABS: BAND 1 % (0.0-2.0); Total Cells Counted 100
[2017-03-18 11:48] LABS: Platelet Estimate NORMAL (NORMAL); Schistocytes 1+
[2017-03-18 11:53] LABS: ALBUMIN 2.8 g/dL (3.4-5.0); ALKALINE PHOSPHATASE 89 U/L (46-116); ANION GAP 14.2 MEQ/L (5-15); BLOOD UREA NITROGEN 41 mg/dL (9-20); CHLORIDE 103 mEq/L (98-107); Carbon Dioxide 25.7 mEq/L (21-32); Glucose 223 MG/DL (70-110); Potassium 4.4 mEq/L (3.5-5.1); SGOT/AST 24 U/L (15-37); SGPT/ALT 24 U/L (12-78); SODIUM 139 mEq/L (136-145); Total Protein 5.9 gm/dL (6.4-8.2)
[2017-03-18] MEDS ORDERED: ROCEPHIN 1 Gm-D5w 50 ml Bag** 1 G/50 ML IVPB IV ONE (12:07)
[2017-03-18] MEDS ORDERED: Zithromax 500 MG/ 250 ML NaCl Premix 500 MG/250 ML IVPB IV ONE (12:07)
[2017-03-18 12:11] LABS: Lactic Acid 2.1 (0.4-2.0)
[2017-03-18] MEDS ORDERED: Zithromax 500 MG/ 250 ML NaCl Premix 500 MG/250 ML IVPB IV STA (12:17)
[2017-03-18] MEDS ORDERED: TYLENOL 325 MG PO PRN (13:07)
[2017-03-18] MEDS: DUONEB 0.5-3 MG/3 ml Neb IH SCH ×2 (14:45→19:43)
[2017-03-18] MEDS: solu-MEDROL 125 MG IV SCH ×2 (15:12→21:12)
[2017-03-18] MEDS: PROTONIX 40 MG IV IV SCH (15:12)
[2017-03-18] MEDS: ENOXAPARIN SODIUM SQ SCH (15:13)
[2017-03-18] MEDS: NICODERM CQ 14 MG TOP SCH (15:13)
[2017-03-18] MEDS: NovoLOG Insulin SQ PRN (16:11)
[2017-03-18] MEDS: Colace 100 MG PO SCH (21:13)
[2017-03-18] MEDS: Pepcid 20 MG VIAL IV SCH (21:13)
[2017-03-18] MEDS: Unasyn 3GM / NaCl 100ML 3 GM/100 ML IVPB IV SCH (21:13)
[2017-03-18] MEDS: REMERON 30 MG PO SCH (21:15)
--- NOTE | 2017-03-18 21:40 | XRAY ---
Indication: Short of breath. Comparison: December 26, 2016. Portable chest demonstrates new left lower lobe infiltrate without large effusion. Remaining lungs clear. Heart is not enlarged. Bony thorax intact.
--- NOTE | 2017-03-18 21:42 | XRAY ---
Indication: Pain following fall. Comparison: Intraoperative exam December 24, 2016. 2 views of the left hip again demonstrates 3 intact orthopedic screws fixating a stable subcapital fracture with again incidental scattered vascular calcifications. No new/acute findings.
[2017-03-18] MEDS ORDERED: NON-FORMULARY ITEM (Mirtazapine [Mirtazapine] 7.5 MG) PO SCH (22:00)
[2017-03-19] MEDS ORDERED: Sodium Chloride 0.9% 500 ML 500 ML IV ONE
[2017-03-19] MEDS: solu-MEDROL 125 MG IV SCH ×5 (02:13→23:33)
[2017-03-19] MEDS: Unasyn 3GM / NaCl 100ML 3 GM/100 ML IVPB IV SCH ×5 (02:14→23:36)
[2017-03-19 05:25] LABS: Mean Cell Volume 97.8 fl (78-100); Mean Platelet Volume 9.9 fl (6-9.5); Platelet Count 226 K/mm3 (150-450); Red Cell Distribution Width 14.6 % (11.5-14.0); White Blood Count 15.5 K/mm3 (4.0-10.5)
[2017-03-19 05:42] LABS: Mean Corpuscular Hemoglobin 31.2 pg (26-32)
[2017-03-19 05:53] LABS: ALBUMIN 2.2 g/dL (3.4-5.0); ALKALINE PHOSPHATASE 68 U/L (46-116); ANION GAP 11.6 MEQ/L (5-15); BLOOD UREA NITROGEN 30 mg/dL (9-20); CHLORIDE 110 mEq/L (98-107); Carbon Dioxide 25.5 mEq/L (21-32); Glucose 136 MG/DL (70-110); Potassium 3.3 mEq/L (3.5-5.1); SGOT/AST 23 U/L (15-37); SGPT/ALT 28 U/L (12-78); SODIUM 144 mEq/L (136-145); Total Protein 5.6 gm/dL (6.4-8.2)
[2017-03-19 06:45] LABS: BAND 3 % (0.0-2.0); Total Cells Counted 100
[2017-03-19 06:46] LABS: Dohle Bodies 1+; Platelet Estimate NORMAL (NORMAL); Poikilocytosis 1+; Toxic Granulation 1+
[2017-03-19] MEDS: DUONEB 0.5-3 MG/3 ml Neb IH SCH ×4 (06:46→20:01)
--- NOTE | 2017-03-19 07:49 | PCM.HP ---
History of Present Illness - Chief Complaint Chief Complaint: sob History of Present Illness: is a 86 year old male who presented to the ER yesterday with a 4 day history of cough, weakness and poor appetite. He has had some sputum production at home, fell and had some left hip pain. Had a recent left subcapital femur fracture s/p ORIF. xray in ER shows LLL pneumonia, hip is stable. - Review of Systems Constitutional: Weakness, Weight Loss Respiratory: Cough, Short Of Breath Cardiac: No Chest Pain, No Edema, No Syncope Abdominal/Gastrointestinal: No Abdominal Pain, No Nausea, No Vomiting, No Diarrhea Musculoskeletal: Arthralgias Skin: No Rash All Other Systems: Reviewed and Negative Medications & Allergies Home Medications: Home Medication List Meloxicam 7.5 mg [Mobic 7.5 MG] 7.5 mg PO DAILY 12/23/16 [History Confirmed 03/18/17] Acetaminophen 325 mg [Tylenol 325 mg] 650 mg PO Q6H PRN PRN #60 tablet [Rx Confirmed 03/18/17] Docusate Sodium 100 mg [Colace 100 MG] 100 mg PO BID #60 capsule 12/27/16 [Rx Confirmed 03/18/17] Alendronate Sodium 70 mg [Fosamax 70 MG] 70 mg PO WEEKLY 03/18/17 [ History Confirmed 03/18/17] Mirtazapine 7.5 mg PO HS 03/18/17 [History Confirmed 03/18/17] Mirtazapine 15 mg PO DAILY 03/18/17 [History Confirmed 03/18/17] Allergies/Adverse Reactions: Allergies Allergy/AdvReac Type Severity Reaction Status Date / Time No Known Drug Allergies Allergy Verified 03/18/17 13:09 - Past Medical History Past Medical History: Yes Neurological History: No Pertinent History ENT History: Macular Degeneration Cardiac History: No Pertinent History Respiratory History: COPD, Emphysema Endocrine Medical History: Diabetes Type II Musculoskelatal History: Osteoarthritis GI Medical History: No Pertinent History History: No Pertinent History Pyscho-Social History: No Pertinent History Male Reproductive Disorders: No Pertinent History Comment: Arthritis in back - Past Surgical History Past Surgical History: Yes Neuro Surgical History: No Pertinent History Cardiac History: No Pertinent History Respiratory Surgery: No Pertinent History GI Surgical History: No Pertinent History Genitourinary Surgical Hx: Other Musculskeletal Surgical Hx: Orthopedic Surgery Male Surgical History: Testicular Surgery Other Surgical History: states had testicle removed 60 years ago LLL FX repair. - Social History Smoking Status: Current every day smoker How long have you smoked: 75 years Exposure to second hand smoke: No Alcohol: Daily Drug Use: none Significant Family History: no pertinent family hx - Physical Exam Vital Signs: Vital Signs - 24 hr Temp Pulse Resp BP Pulse Ox 03/19/17 06:48 72 22 99 03/19/17 03:11 97.4 F 74 24 78/51 93 L 03/18/17 23:52 99.3 F 83 24 75/50 95 03/18/17 20:00 98.2 F 97 H 20 105/57 96 03/18/17 19:48 85 26 H 93 L 03/18/17 16:00 98.2 F 97 H 20 85/49 93 L 03/18/17 14:56 71 18 94 L 03/18/17 13:17 97.8 F 97 H 18 106/53 97 03/18/17 13:15 97.8 F 97 H 18 106/53 95 03/18/17 13:04 97.8 F 97 H 18 106/53 95 03/18/17 12:29 94 L 03/18/17 12:07 100 H 20 106/59 96 03/18/17 11:18 22 L 18 94 L 03/18/17 10:46 99 F 124 H 16 124/68 98 Oxygen-Last 24 hours O2 Percentage 4 Liters = 36% O2 Percentage 4 Liters = 36% O2 Percentage 4 Liters = 36% O2 Percentage 2 Liters = 28% O2 Percentage 2 Liters = 28% O2 Percentage 2 Liters = 28% O2 Percentage 2 Liters = 28% O2 Percentage 2 Liters = 28% O2 Percentage 2 Liters = 28% Oxygen Flowrate (L/min)-RT 2 General Appearance: no apparent distress, thin Neurologic Exam: alert, oriented x 3 Respiratory Exam: normal breath sounds, lungs clear, crackles/rales (left base) , No respiratory distress Cardiovascular Exam: regular rate/rhythm, normal heart sounds, normal peripheral pulses Gastrointestinal/Abdomen Exam: soft, normal bowel sounds, No tenderness, No mass Extremity Exam: normal inspection, normal range of motion, pelvis stable Skin Exam: normal color, warm, dry, No rash Results - Labs Lab/Micro Results: Accuchecks Date 03/18/17 Date 03/18/17 Time 16:30 Time 16:10 Accucheck Value: 150 Accucheck Value: 269 Accucheck Value: 269 Lab Results-Last 24 Hours 03/18/17 03/19/17 03/19/17 Range/Units 14:00 05:15 05:15 WBC 15.5 H (4.0-10.5) K/mm3 RBC 3.20 L (4.1-5.6) M/mm3 Hgb 10.0 L (12.5-18.0) gm/dl Hct 31.3 L (42-50) % MCV 97.8 (78-100) fl MCH 31.2 (26-32) pg MCHC 31.9 L (32-36) g/dl RDW 14.6 H (11.5-14.0) % Plt Count 226 (150-450) K/mm3 MPV 9.9 H (6-9.5) fl Segmented Neutrophils 94 H (36.-66.) % Band Neutrophils 3 H (0.0-2.0) % Lymphocytes (Manual) 3 L (24-44) % Differential Comment ABNORMAL Toxic Granulation 1+ Dohle Bodies 1+ Platelet Estimate NORMAL (NORMAL) Poikilocytosis 1+ Sodium 144 (136-145) mEq/L Potassium 3.3 L (3.5-5.1) mEq/L Chloride 110 H (98-107) mEq/L Carbon Dioxide 25.5 (21-32) mEq/L Anion Gap 11.6 (5-15) MEQ/L BUN 30 H (9-20) mg/dL Creatinine 0.70 (0.55-1.30) mg/dl Estimated GFR > 60 ML/MIN Glucose 136 H (70-110) MG/DL Lactic Acid 1.2 (0.4-2.0) Calcium 8.2 L (8.5-10.1) mg/dL Total Bilirubin 0.30 (0.2-1.0) mg/dL AST 23 (15-37) U/L ALT 28 (12-78) U/L Alkaline Phosphatase 68 (46-116) U/L Serum Total Protein 5.6 L (6.4-8.2) gm/dL Albumin 2.2 L (3.4-5.0) g/dL Accuchecks Date 03/18/17 Date 03/18/17 Time 16:30 Time 16:10 Accucheck Value: 150 Accucheck Value: 269 Accucheck Value: 269 - Other Procedures and Tests Respiratory Therapy 03/18/17 15:00 Respiratory Nebulizer QID Assessment/Plan (1) Pneumonia Current Visit: Yes Status: Acute Qualifiers: Pneumonia type: due to other aerobic Gram-negative bacteria Laterality: left Lung location: lower lobe of lung Qualified Code(s): J15.6 - Pneumonia due to other Gram-negative bacteria Assessment & Plan: continue IV antibiotics, on unasyn and zithromax started in ER. continue current management Code(s): J18.9 - PNEUMONIA, UNSPECIFIED ORGANISM (2) Subcapital fracture of left hip Current Visit: No Status: Acute Qualifiers: Assessment & Plan: xrays are stable, patient with good movement at this time Code(s): S72.012A - UNSP INTRACAPSULAR FRACTURE OF LEFT FEMUR, INIT FOR CLOS FX (3) COPD (chronic obstructive pulmonary disease) Current Visit: No Status: Chronic Qualifiers:
[2017-03-19] MEDS ORDERED: Sodium Chloride 0.9% 10 ML FLUSH Syringe IV PRN (08:16)
[2017-03-19] MEDS: REMERON 30 MG PO SCH ×2 (09:07→21:29)
[2017-03-19] MEDS: Mobic 7.5 MG PO SCH (09:09)
[2017-03-19] MEDS: PROTONIX 40 MG IV IV SCH (09:09)
[2017-03-19] MEDS: Pepcid 20 MG VIAL IV SCH ×2 (09:09→21:32)
[2017-03-19] MEDS: Colace 100 MG PO SCH ×2 (09:09→21:29)
[2017-03-19] MEDS: NICODERM CQ 14 MG TOP SCH (09:11)
[2017-03-19] MEDS: ENOXAPARIN SODIUM SQ SCH (09:11)
[2017-03-19] MEDS: Zithromax 500 MG/ 250 ML NaCl Premix 500 MG/250 ML IVPB IV SCH (09:13)
[2017-03-19] MEDS ORDERED: NON-FORMULARY ITEM (Mirtazapine [Mirtazapine] 15 MG) PO SCH (10:00)
[2017-03-19] MEDS: Sodium Chloride 0.9% 10 ML FLUSH Syringe IV SCH ×2 (15:15→21:33)
[2017-03-19] MEDS: NovoLOG Insulin SQ PRN ×2 (16:25→22:02)
[2017-03-20 05:56] LABS: Mean Cell Volume 97.6 fl (78-100); Mean Platelet Volume 10.3 fl (6-9.5); Platelet Count 228 K/mm3 (150-450); Red Blood Count 2.89 M/mm3 (4.1-5.6); Red Cell Distribution Width 14.2 % (11.5-14.0); White Blood Count 14.6 K/mm3 (4.0-10.5)
[2017-03-20 05:59] LABS: ALKALINE PHOSPHATASE 63 U/L (46-116); ANION GAP 9.4 MEQ/L (5-15); BLOOD UREA NITROGEN 28 mg/dL (9-20); CHLORIDE 112 mEq/L (98-107); Carbon Dioxide 26.4 mEq/L (21-32); Glucose 129 MG/DL (70-110); Potassium 4.3 mEq/L (3.5-5.1); SGOT/AST 49 U/L (15-37); SGPT/ALT 50 U/L (12-78); SODIUM 144 mEq/L (136-145); Total Protein 5.2 gm/dL (6.4-8.2)
[2017-03-20 06:04] LABS: Mean Corpuscular Hemoglobin 30.7 pg (26-32)
[2017-03-20] MEDS: solu-MEDROL 125 MG IV SCH ×3 (06:13→18:04)
[2017-03-20] MEDS: Unasyn 3GM / NaCl 100ML 3 GM/100 ML IVPB IV SCH ×3 (06:13→18:04)
[2017-03-20] MEDS: Sodium Chloride 0.9% 10 ML FLUSH Syringe IV SCH ×3 (06:22→21:28)
[2017-03-20 07:16] LABS: ANISOCYTOSIS 1+; Total Cells Counted 100
[2017-03-20 07:17] LABS: Platelet Estimate NORMAL (NORMAL)
[2017-03-20] MEDS: DUONEB 0.5-3 MG/3 ml Neb IH SCH ×3 (07:28→19:04)
--- NOTE | 2017-03-20 08:44 | PCM.NOTE ---
Date and Time: 03/20/17 0838 Subjective Assessment: Pt fell overnight on his L side - denies any hip pain. C/o head pain, elbow pain (L), and L wrist pain. Also laceration L calf. Alert and oriented. - Review of Systems Constitutional: Weakness, No Fever Objective Exam General Appearance: no apparent distress, thin Neurologic Exam: alert, oriented x 3, cooperative Skin Exam: normal color, warm, dry Respiratory Exam: diminished breath sounds, rhonchi (bilat bases), wheezing ( exp scattered) Cardiovascular Exam: regular rate/rhythm, normal heart sounds, murmur (II/ systolic) Extremity Exam: other (L calf, skin tear present, tegaderm present) OBJECTIVE DATA Vital Signs: Vital Signs - 24 hr Temp Pulse Resp BP Pulse Ox 03/20/17 07:32 83 20 97 03/20/17 04:00 24 03/20/17 03:58 97.6 F 77 24 98/55 98 03/20/17 00:00 24 03/19/17 23:50 98.4 F 76 24 79/52 98 03/19/17 20:04 89 18 96 03/19/17 20:00 24 03/19/17 19:58 98.3 F 83 22 69/43 92 L 03/19/17 16:00 22 03/19/17 15:20 83 22 97 03/19/17 15:19 97.6 F 68 20 90/55 95 03/19/17 11:56 97.5 F 81 24 81/53 98 03/19/17 11:53 22 03/19/17 11:41 81 24 98 Oxygen-Last 24 hours O2 Percentage 2 Liters = 28% O2 Percentage 2 Liters = 28% O2 Percentage 2 Liters = 28% O2 Percentage 2 Liters = 28% O2 Percentage 2 Liters = 28% Pain Assessment - Last Documented Pain Scale Used 0-10 Pain Scale Intake and Output: Intake & Output 03/17/17 03/18/17 03/19/17 03/20/17 11:59 11:59 11:59 11:59 Intake Total 1280 660 Output Total 200 375 Balance 1080 285 Weight 48.988 kg Lab Results: Accuchecks Date 03/19/17 Date 03/19/17 Date 03/19/17 Time 22:00 Time 11:27 Accucheck Value: 254 Accucheck Value: 251 Accucheck Value: 191 Lab Results-Last 24 Hours 03/20/17 03/20/17 Range/Units 05:39 05:39 WBC 14.6 H (4.0-10.5) K/mm3 RBC 2.89 L (4.1-5.6) M/mm3 Hgb 8.9 L (12.5-18.0) gm/dl Hct 28.2 L (42-50) % MCV 97.6 (78-100) fl MCH 30.7 (26-32) pg MCHC 31.6 L (32-36) g/dl RDW 14.2 H (11.5-14.0) % Plt Count 228 (150-450) K/mm3 MPV 10.3 H (6-9.5) fl Segmented Neutrophils 96 H (36.-66.) % Lymphocytes (Manual) 3 L (24-44) % Monocytes (Manual) 1 (0.0-12.0) % Differential Comment ABNORMAL Platelet Estimate NORMAL (NORMAL) Anisocytosis 1+ Sodium 144 (136-145) mEq/L Potassium 4.3 (3.5-5.1) mEq/L Chloride 112 H (98-107) mEq/L Carbon Dioxide 26.4 (21-32) mEq/L Anion Gap 9.4 (5-15) MEQ/L BUN 28 H (9-20) mg/dL Creatinine 0.71 (0.55-1.30) mg/dl Estimated GFR > 60 ML/MIN Glucose 129 H (70-110) MG/DL Calcium 8.2 L (8.5-10.1) mg/dL Total Bilirubin 0.20 (0.2-1.0) mg/dL AST 49 H (15-37) U/L ALT 50 (12-78) U/L Alkaline Phosphatase 63 (46-116) U/L Serum Total Protein 5.2 L (6.4-8.2) gm/dL Albumin 2.0 L (3.4-5.0) g/dL Radiology Exams: Radiology Procedures Category Date Time Status ELBOW (2 VIEW) Urgent Exams 03/20/17 Ordered HEAD WITHOUT CONTRAST [CT] Stat Exams 03/20/17 07:45 Taken SHOULDER Urgent Exams 03/20/17 Ordered WRIST (2 VIEW) Urgent Exams 03/20/17 Ordered Assessment/Plan (1) Subcapital fracture of left hip Current Visit: No Status: Acute Qualifiers: Encounter type: subsequent encounter Fracture type: closed Fracture healing: with routine healing Qualified Code(s): S72.012D - Unspecified intracapsular fracture of left femur, subsequent encounter for closed fracture with routine healing Assessment & Plan: Was stable and closed - re-image as he fell thismorning. Denying pain. Code(s): S72.012A - UNSP INTRACAPSULAR FRACTURE OF LEFT FEMUR, INIT FOR CLOS FX (2) Elbow pain, left Current Visit: Yes Status: Acute Assessment & Plan: XR this morning. Code(s): M25.522 - PAIN IN LEFT ELBOW (3) Wrist pain, left Current Visit: Yes Status: Acute Assessment & Plan: XR pending. Code(s): M25.532 - PAIN IN LEFT WRIST (4) Pneumonia Current Visit: Yes Status: Acute Qualifiers: Pneumonia type: due to other aerobic Gram-negative bacteria Laterality: left Lung location: lower lobe of lung Qualified Code(s): J15.6 - Pneumonia due to other Gram-negative bacteria Assessment & Plan: Unasyn and zithromax. Code(s): J18.9 - PNEUMONIA, UNSPECIFIED ORGANISM
--- NOTE | 2017-03-20 09:01 | XRAY ---
Indication: Pain following fall. Comparison: None 3 views of the left shoulder demonstrates osteopenia, moderate AC degenerative arthropathy, and tiny well-circumscribed ossification adjacent to the greater tuberosity either degenerative versus old injury. High riding humeral head commonly seen with rotator cuff tear. No other bony, articular, or soft tissue abnormalities. Incidental left lung infiltrate detailed on recent chest exam.
--- NOTE | 2017-03-20 09:03 | XRAY ---
Indication: Pain following fall. Comparison: None 2 views of the left wrist demonstrates osteopenia and mild radiocarpal degenerative joint space narrowing. Mild scapholunate widening concerning for underlying ligamentous tear. No other bony, articular, or soft tissue abnormalities.
--- NOTE | 2017-03-20 09:05 | XRAY ---
Indication: Pain following fall. Comparison: December 24, 2016. 2 views of the left elbow again demonstrates osteopenia and olecranon process osteophyte. No new/acute bony, articular, or soft tissue abnormalities.
--- NOTE | 2017-03-20 09:05 | XRAY ---
Indication: Pain following fall. Multiple contiguous axial images obtained through the head without contrast. Comparison: None Age-appropriate global atrophy and moderate periventricular degenerative micro-ischemia bilaterally. No acute intracranial hemorrhage, abnormal extra axial fluid collection, or mass effect. Fourth ventricle is midline without hydrocephalus. Bony calvarium intact. Visualized paranasal sinuses and mastoid air cells are clear. Impression: Nonacute senile brain. CT DI 50.53
[2017-03-20] MEDS: Colace 100 MG PO SCH ×2 (09:56→21:24)
[2017-03-20] MEDS: Mobic 7.5 MG PO SCH (09:56)
[2017-03-20] MEDS: NICODERM CQ 14 MG TOP SCH (09:56)
[2017-03-20] MEDS: ENOXAPARIN SODIUM SQ SCH (09:57)
[2017-03-20] MEDS: REMERON 30 MG PO SCH ×2 (09:57→21:24)
[2017-03-20] MEDS: Zithromax 500 MG/ 250 ML NaCl Premix 500 MG/250 ML IVPB IV SCH (10:09)
[2017-03-20] MEDS: Pepcid 20 MG VIAL IV SCH ×2 (10:10→21:27)
[2017-03-20] MEDS: PROTONIX 40 MG IV IV SCH (10:10)
[2017-03-20] MEDS: NovoLOG Insulin SQ PRN (12:19)
[2017-03-21] MEDS: solu-MEDROL 125 MG IV SCH ×4 (01:33→17:56)
[2017-03-21] MEDS: Unasyn 3GM / NaCl 100ML 3 GM/100 ML IVPB IV SCH ×4 (01:33→17:59)
[2017-03-21 05:42] LABS: Mean Cell Volume 97.3 fl (78-100); Mean Platelet Volume 9.8 fl (6-9.5); Platelet Count 237 K/mm3 (150-450); Red Blood Count 2.97 M/mm3 (4.1-5.6); Red Cell Distribution Width 14.3 % (11.5-14.0); White Blood Count 13.6 K/mm3 (4.0-10.5)
[2017-03-21 05:49] LABS: Mean Corpuscular Hemoglobin 30.9 pg (26-32)
[2017-03-21] MEDS: Sodium Chloride 0.9% 10 ML FLUSH Syringe IV SCH ×3 (05:53→22:54)
[2017-03-21 06:03] LABS: ANION GAP 9.5 MEQ/L (5-15); BLOOD UREA NITROGEN 23 mg/dL (9-20); CHLORIDE 109 mEq/L (98-107); Carbon Dioxide 27.3 mEq/L (21-32); Glucose 131 MG/DL (70-110); Potassium 4.1 mEq/L (3.5-5.1); SODIUM 142 mEq/L (136-145)
[2017-03-21] MEDS: DUONEB 0.5-3 MG/3 ml Neb IH SCH ×4 (07:08→21:59)
--- NOTE | 2017-03-21 08:01 | PCM.NOTE ---
Date and Time: 03/21/17 0800 Subjective Assessment: patient denies complaints, still has some cough. thinks he is feeling a little better. Objective Exam General Appearance: no apparent distress, alert, thin Respiratory Exam: crackles/rales, rhonchi Cardiovascular Exam: regular rate/rhythm Gastrointestinal/Abdomen Exam: soft, No tenderness, No mass OBJECTIVE DATA Vital Signs: Vital Signs - 24 hr Temp Pulse Resp BP Pulse Ox 03/21/17 07:43 97.6 F 71 20 91/52 97 03/21/17 07:00 54 L 18 97 03/21/17 04:00 97.8 F 63 20 101/56 97 03/21/17 00:00 97.2 F 72 24 125/64 97 03/20/17 20:00 98.2 F 84 12 111/55 98 03/20/17 19:00 80 22 98 03/20/17 16:14 98 F 97 H 18 104/55 97 03/20/17 14:49 71 20 99 03/20/17 12:00 98.1 F 93 H 20 93/54 98 Oxygen-Last 24 hours O2 Percentage 2 Liters = 28% O2 Percentage 2 Liters = 28% O2 Percentage 2 Liters = 28% O2 Percentage 3 Liters = 32% O2 Percentage 3 Liters = 32% Pain Assessment - Last Documented Pain Scale Used 0-10 Pain Scale Intake and Output: Intake & Output 03/18/17 03/19/17 03/20/17 03/21/17 11:59 11:59 11:59 11:59 Intake Total 1280 1380 1174 Output Total 200 375 200 Balance 1080 1005 974 Weight 48.988 kg 48.988 kg Lab Results: Accuchecks Date 03/20/17 Time 22:00 Accucheck Value: 194 Accucheck Value: 164 Accucheck Value: 207 Lab Results-Last 24 Hours 03/21/17 03/21/17 Range/Units 05:30 05:30 WBC 13.6 H (4.0-10.5) K/mm3 RBC 2.97 L (4.1-5.6) M/mm3 Hgb 9.2 L (12.5-18.0) gm/dl Hct 28.9 L (42-50) % MCV 97.3 (78-100) fl MCH 30.9 (26-32) pg MCHC 31.8 L (32-36) g/dl RDW 14.3 H (11.5-14.0) % Plt Count 237 (150-450) K/mm3 MPV 9.8 H (6-9.5) fl Sodium 142 (136-145) mEq/L Potassium 4.1 (3.5-5.1) mEq/L Chloride 109 H (98-107) mEq/L Carbon Dioxide 27.3 (21-32) mEq/L Anion Gap 9.5 (5-15) MEQ/L BUN 23 H (9-20) mg/dL Creatinine 0.60 (0.55-1.30) mg/dl Estimated GFR > 60 ML/MIN Glucose 131 H (70-110) MG/DL Calcium 7.9 L (8.5-10.1) mg/dL Radiology Exams: Radiology Procedures Category Date Time Status ELBOW (2 VIEW) Urgent Exams 03/20/17 Completed HEAD WITHOUT CONTRAST [CT] Stat Exams 03/20/17 07:45 Completed SHOULDER Urgent Exams 03/20/17 Completed WRIST (2 VIEW) Urgent Exams 03/20/17 Completed Assessment/Plan (1) Pneumonia Current Visit: Yes Status: Acute Qualifiers: Pneumonia type: due to other aerobic Gram-negative bacteria Laterality: left Lung location: lower lobe of lung Qualified Code(s): J15.6 - Pneumonia due to other Gram-negative bacteria Assessment & Plan: continue IV unasyn and zithromax at this time, nebs Code(s): J18.9 - PNEUMONIA, UNSPECIFIED ORGANISM (2) Subcapital fracture of left hip Current Visit: No Status: Acute Qualifiers: Encounter type: subsequent encounter Fracture type: closed Fracture healing: with routine healing Qualified Code(s): S72.012D - Unspecified intracapsular fracture of left femur, subsequent encounter for closed fracture with routine healing Code(s): S72.012A - UNSP INTRACAPSULAR FRACTURE OF LEFT FEMUR, INIT FOR CLOS FX (3) COPD (chronic obstructive pulmonary disease) Current Visit: No Status: Chronic Qualifiers:
[2017-03-21] MEDS: PROTONIX 40 MG IV IV SCH (10:14)
[2017-03-21] MEDS: Pepcid 20 MG VIAL IV SCH ×2 (10:14→22:53)
[2017-03-21] MEDS: NICODERM CQ 14 MG TOP SCH (10:20)
[2017-03-21] MEDS: Zithromax 500 MG/ 250 ML NaCl Premix 500 MG/250 ML IVPB IV SCH (10:27)
[2017-03-21] MEDS: Mobic 7.5 MG PO SCH (10:27)
[2017-03-21] MEDS: Colace 100 MG PO SCH ×2 (10:27→22:53)
[2017-03-21] MEDS: REMERON 30 MG PO SCH ×2 (10:28→23:01)
[2017-03-21] MEDS: ENOXAPARIN SODIUM SQ SCH (10:33)
[2017-03-21] MEDS: NovoLOG Insulin SQ PRN (12:17)
[2017-03-22] MEDS: Unasyn 3GM / NaCl 100ML 3 GM/100 ML IVPB IV SCH ×2 (00:08→06:03)
[2017-03-22] MEDS: solu-MEDROL 125 MG IV SCH ×2 (00:08→06:03)
[2017-03-22] MEDS: Sodium Chloride 0.9% 10 ML FLUSH Syringe IV SCH (06:03)
[2017-03-22 06:28] LABS: Mean Cell Volume 97.4 fl (78-100); Platelet Count 224 K/mm3 (150-450); Red Blood Count 3.05 M/mm3 (4.1-5.6); Red Cell Distribution Width 14.4 % (11.5-14.0); White Blood Count 12.7 K/mm3 (4.0-10.5)
[2017-03-22 06:38] LABS: Mean Corpuscular Hemoglobin 30.4 pg (26-32)
[2017-03-22 06:47] LABS: ALBUMIN 1.8 g/dL (3.4-5.0); ALKALINE PHOSPHATASE 55 U/L (46-116); ANION GAP 6.3 MEQ/L (5-15); BLOOD UREA NITROGEN 21 mg/dL (9-20); CHLORIDE 110 mEq/L (98-107); Carbon Dioxide 29.4 mEq/L (21-32); Glucose 132 MG/DL (70-110); Potassium 3.9 mEq/L (3.5-5.1); SGOT/AST 44 U/L (15-37); SGPT/ALT 83 U/L (12-78); SODIUM 142 mEq/L (136-145); Total Protein 4.7 gm/dL (6.4-8.2)
[2017-03-22] MEDS: DUONEB 0.5-3 MG/3 ml Neb IH SCH (06:58)
[2017-03-22 07:03] VITALS: PULSE 62; O2SAT 98
[2017-03-22 07:39] VITALS: BP 136/70
[2017-03-22 08:04] LABS: Platelet Estimate NORMAL (NORMAL); Total Cells Counted 100
--- NOTE | 2017-03-22 08:09 | PCM.DS ---
Discharge Summary Date of Admission: 03/18/17 12:54 Admitting Physician: CATARINO SHAH Primary Care Provider: SABINO TALBERT Allergies Allergies No Known Drug Allergies Allergy (Verified 03/18/17 13:09) Hospital Summary - Hospital Course Hospital Course: patient was admitted with cough, shortness of breath and has been treated for pneumonia. he is feeling much better today, tolerating po intake. sats are good and his level of function seems to baseline - Vitals & Intake/Output Vital Signs: Vital Signs Temperature 97.8 F 03/22/17 07:38 Pulse Rate 62 03/22/17 07:38 Respiratory Rate 20 03/22/17 07:38 Blood Pressure 136/70 03/22/17 07:38 O2 Sat by Pulse Oximetry 98 03/22/17 07:38 Oxygen-Last Documented O2 Percentage 2 Liters = 28% Intake & Output: Intake & Output 03/19/17 03/20/17 03/21/17 03/22/17 11:59 11:59 11:59 11:59 Intake Total 1280 1380 1974 1100 Output Total 200 375 425 Balance 1080 1005 1549 1100 Weight 48.988 kg 48.988 kg - Lab Result Diagrams: 03/22/17 05:55 03/22/17 05:55 Lab Results-Last 24 Hrs: Accuchecks Date 03/21/17 Time 22:00 Accucheck Value: 180 Accucheck Value: 180 Accucheck Value: 270 Lab Results-Last 24 Hours 03/22/17 03/22/17 Range/Units 05:55 05:55 WBC 12.7 H (4.0-10.5) K/mm3 RBC 3.05 L (4.1-5.6) M/mm3 Hgb 9.3 L (12.5-18.0) gm/dl Hct 29.7 L (42-50) % MCV 97.4 (78-100) fl MCH 30.4 (26-32) pg MCHC 31.3 L (32-36) g/dl RDW 14.4 H (11.5-14.0) % Plt Count 224 (150-450) K/mm3 MPV 10.0 H (6-9.5) fl Sodium 142 (136-145) mEq/L Potassium 3.9 (3.5-5.1) mEq/L Chloride 110 H (98-107) mEq/L Carbon Dioxide 29.4 (21-32) mEq/L Anion Gap 6.3 (5-15) MEQ/L BUN 21 H (9-20) mg/dL Creatinine 0.57 (0.55-1.30) mg/dl Estimated GFR > 60 ML/MIN Glucose 132 H (70-110) MG/DL Calcium 7.6 L (8.5-10.1) mg/dL Total Bilirubin 0.20 (0.2-1.0) mg/dL AST 44 H (15-37) U/L ALT 83 H (12-78) U/L Alkaline Phosphatase 55 (46-116) U/L Serum Total Protein 4.7 L (6.4-8.2) gm/dL Albumin 1.8 L (3.4-5.0) g/dL Micro Results-Entire Visit: Accuchecks Date 03/21/17 Time 22:00 Accucheck Value: 180 Accucheck Value: 180 Accucheck Value: 270 - Radiology Exams Ordered Rad Exams-Entire Visit: Radiology Procedures Category Date Time Status HEAD WITHOUT CONTRAST [CT] Stat Exams 03/20/17 07:45 Completed - Procedures and Test Procedures and Tests throughout Hospitalization: Therapy Orders & Screens 03/18/17 14:03 Smoking Cessation Education ONCE Comment: Diagnosis: sob Smoking Status: Current every day smoker How long have you smoked: 75 years Approximately how many cigarettes per day: pack Do you dip or chew tobacco: No 03/18/17 15:00 Respiratory Nebulizer 07,11,15,19 Comment: Diagnosis: sob Discharge Exam General Appearance: no apparent distress, alert Skin Exam: normal color, warm, dry Respiratory Exam: normal breath sounds, lungs clear, No respiratory distress Cardiovascular Exam: regular rate/rhythm, normal heart sounds Gastrointestinal/Abdomen Exam: soft, No tenderness, No mass Extremity Exam: normal inspection, normal range of motion Final Diagnosis/Problem List - Final Discharge Diagnosis/Problem (1) Pneumonia Current Visit: Yes Status: Acute (2) Subcapital fracture of left hip Current Visit: No Status: Acute (3) COPD (chronic obstructive pulmonary disease) Current Visit: No Status: Chronic - Discharge Disposition: Home, Self-Care Condition: Good Prescriptions: New Amox Tr/Potass Clav. 500 mg [Augmentin 500-125 Tablet] 500 mg PO BID # 14 tablet Prednisone 20 mg [Deltasone 20 mg] 20 mg PO UD #18 tablet Albuterol Sulfate [Proventil Hfa] 2 puffs IH Q4-6HPRN PRN #2 [id number] PRN Reason: Shortness Of Breath Continue Meloxicam 7.5 mg [Mobic 7.5 MG] 7.5 mg PO DAILY Docusate Sodium 100 mg [Colace 100 MG] 100 mg PO BID #60 capsule Acetaminophen 325 mg [Tylenol 325 mg] 650 mg PO Q6H PRN PRN #60 tablet PRN Reason: Pain And/Or Fever Mirtazapine 15 mg PO DAILY Mirtazapine 7.5 mg PO HS Alendronate Sodium 70 mg [Fosamax 70 MG] 70 mg PO WEEKLY Follow up with: SABINO TALBERT MD [Primary Care Provider] -
[2017-03-22] MEDS: Zithromax 500 MG/ 250 ML NaCl Premix 500 MG/250 ML IVPB IV SCH (09:05)
[2017-03-22] MEDS: ENOXAPARIN SODIUM SQ SCH (09:05)
[2017-03-22] MEDS: NICODERM CQ 14 MG TOP SCH (09:05)
[2017-03-22] MEDS: Colace 100 MG PO SCH (09:06)
[2017-03-22] MEDS: Pepcid 20 MG VIAL IV SCH (09:06)
[2017-03-22] MEDS: Mobic 7.5 MG PO SCH (09:06)
[2017-03-22] MEDS: PROTONIX 40 MG IV IV SCH (09:06)
[2017-03-22] MEDS: REMERON 30 MG PO SCH (09:07)
[2017-03-23] MEDS ORDERED: Fosamax 70 MG PO SCH (06:00)
== END 2017-03-22 10:40 | disposition home health service (06) | DRG 179 ==
LOC: ED 10:45 → MED SURG 12:54
PROVIDERS: ADMIT Family Medicine; ATTEND Family Medicine
DX: J15.6 Pneumonia due to other Gram-negative bacteria (principal); S72.012D Unspecified intracapsular fracture of left femur, subsequent encounter for closed fracture with routine healing; Z96.642 Presence of left artificial hip joint; J44.9 Chronic obstructive pulmonary disease, unspecified; E11.9 Type 2 diabetes mellitus without complications; M19.90 Unspecified osteoarthritis, unspecified site; M46.90 Unspecified inflammatory spondylopathy, site unspecified; Z72.0 Tobacco use; M25.522 Pain in left elbow; M25.532 Pain in left wrist; S81.812A Laceration without foreign body, left lower leg, initial encounter; W18.30XA Fall on same level, unspecified, initial encounter
CPT/HCPCS: 36000; 36415; 70450; 71010; 73030; 73070; 73100; 73502; 80048; 80053; 82962; 83036; 83605; 85025; 85027; 94640; 94760; 96360; 96361; 96365; 96366; 99285; J0295; J0456; J0696; J1650; J2930; L3908; A9270-GY

== ENCOUNTER 2018-03-17 11:02 | Inpatient (IN) | payer MEDICARE, OTHER ==
--- NOTE | 2018-03-17 11:26 | ERPHSYRPT ---
- History of Present Illness Time Seen by Provider: 03/17/18 11:10 Physician History: PATIENT WITH A HISTORY OF COPD, HYPERTENSION COMPLAINS OF PRODUCTIVE COUGH, DYSPNEA AND PAIN UPON INSPIRATION OVER THE PAST 3-4 DAYS. HE DENIES FEVER, CHILLS, AND ALSO COMPLAINS OF RIGHT FOOT SWELLING, DENIES INJURY OR TRAUMA. Timing/Duration: day(s) Quality: sharpness, stabbing Location: substernal Chest Pain Radiation: no radiation Severity of Pain-Max: moderate Severity of Pain-Current: moderate Modifying Factors: Improves With: breathing, other (ONLY HAS CHEST PAIN UPON INSPIRATION) Associated Symptoms: shortness of breath, cough, hurts to breathe Aspirin Treatment Today: 81 mg x 4, provided at home Allergies/Adverse Reactions: No Known Drug Allergies Allergy (Verified 03/18/17 13:09) Home Medications: Meloxicam 7.5 mg [Mobic 7.5 MG] 7.5 mg PO DAILY 12/23/16 [History] Alendronate Sodium 70 mg [Fosamax 70 MG] 70 mg PO WEEKLY 03/18/17 [History ] Hx Tetanus, Diphtheria Vaccination/Date Given: No Hx Influenza Vaccination/Date Given: Yes Hx Pneumococcal Vaccination/Date Given: Yes - Review of Systems Constitutional: No Fever, No Chills Eyes: No Symptoms Ears, Nose, & Throat: No Symptoms Respiratory: Cough, Dyspnea Cardiac: Chest Pain, No Edema, No Syncope Abdominal/Gastrointestinal: No Symptoms, No Abdominal Pain, No Nausea, No Vomiting, No Diarrhea Genitourinary Symptoms: No Symptoms, No Dysuria Musculoskeletal: Other (FOOT SWELLING), No Back Pain, No Neck Pain Skin: No Rash Neurological: No Dizziness, No Focal Weakness, No Sensory Changes Psychological: No Symptoms Endocrine: No Symptoms All Other Systems: Reviewed and Negative - Past Medical History Pertinent Past Medical History: Yes Neurological History: No Pertinent History ENT History: Macular Degeneration Cardiac History: No Pertinent History Respiratory History: COPD, Emphysema Endocrine Medical History: Diabetes Type II Musculoskeletal History: Osteoarthritis GI Medical History: No Pertinent History History: No Pertinent History Psycho-Social History: No Pertinent History Male Reproductive Disorders: No Pertinent History Other Medical History: Arthritis in back - Past Surgical History Past Surgical History: Yes Neuro Surgical History: No Pertinent History Cardiac: No Pertinent History Respiratory: No Pertinent History Gastrointestinal: No Pertinent History Genitourinary: Other Musculoskeletal: Orthopedic Surgery Male Surgical History: Testicular Surgery Other Surgical History: states had testicle removed 60 years ago LLL FX repair. - Social History Smoking Status: Current every day smoker How long have you smoked: 75 years Exposure to second hand smoke: No Alcohol Use: None Drug Use: none Patient Lives Alone: No Significant Family History: no pertinent family hx - Nursing Vital Signs Nursing Vital Signs: Initial Vital Signs Temperature 98 F 03/17/18 11:21 Pulse Rate 108 H 03/17/18 11:21 Respiratory Rate 20 03/17/18 11:21 Blood Pressure 121/78 03/17/18 11:21 O2 Sat by Pulse Oximetry 96 03/17/18 11:21 Pain Scale Pain Intensity 0 - Physical Exam General Appearance: no apparent distress, alert Eye Exam: PERRL/EOMI, eyes nml inspection Ears, Nose, Throat Exam: normal ENT inspection, moist mucous membranes Neck Exam: normal inspection, non-tender, supple, full range of motion Respiratory Exam: lungs clear, diminished breath sounds, crackles/rales ( INSPIRATORY CRACKLES), No respiratory distress Cardiovascular Exam: regular rate/rhythm, normal heart sounds Gastrointestinal/Abdomen Exam: soft, No tenderness, No mass Back Exam: normal inspection, No CVA tenderness, No vertebral tenderness Extremity Exam: normal inspection, normal range of motion Neurologic Exam: alert, oriented x 3, cooperative, normal mood/affect, sensation nml, No motor deficits Skin Exam: normal color, warm, dry SpO2 Interpretation: normal SpO2: 96 Oxygen Delivery: Nasal Cannula - Course EKG Interpreted by Me: RATE, Sinus Rhythm (RATE OF 90 WITH FLAT T-WAVES LATERALLY), NORMAL AXIS - Radiology Exams Chest X-ray Interpretation: Interpreted by me (COPD, LEFT UPPER LOBE INFILTRATE) - CT Exams Chest CT Interpretation: Tele-radiologist Report (MODERATE CENTRILOBAR EMPHYSEMA, NO PULMONARY EMBOLUS, MILD LEFT MEDIAL BASILAR MULTILOBAR ATELECTASIS AND PNEUMONIA ) Ordered Tests: Active Orders 24 hr Category Date Time Status Bedrest with BRP/BSC ROUTINE Activity 03/17/18 14:50 Active Call Admit Doctor for Orders ROUTINE Care 03/17/18 14:50 Ordered Cleaning Staff Supervisor STAT Care 03/17/18 11:29 Active Code Status Order ROUTINE Care 03/17/18 14:50 Ordered EKG-ER Only STAT Care 03/17/18 11:28 Active IV Care Q6H Care 03/17/18 14:50 Ordered IV Insertion STAT Care 03/17/18 11:28 Active IV Insertion STAT Care 03/17/18 11:46 Active Implement Chest Pain Pathway ROUTINE Care 03/17/18 14:[address] in Observation ROUTINE Care 03/17/18 14:51 Ordered Trevor Hose, Apply ROUTINE Care 03/17/18 14:50 Ordered Telemetry ROUTINE Care 03/17/18 14:50 Ordered Vital Signs Q4H Care 03/17/18 14:50 Ordered Weight,Daily 0600 Care 03/17/18 14:50 Ordered Cardiac Diet Diet 03/17/18 Dinner Active CHEST 1 VIEW (PORTABLE) Stat Exams 03/17/18 11:29 Taken CHEST WITH CONTRAST [CT] Stat Exams 03/17/18 12:28 Taken FOOT (MINIMUM 3 VIEWS) Stat Exams 03/17/18 12:15 Taken BLOOD CULTURE Stat Lab 03/17/18 11:40 Received CBC W DIFF Stat Lab 03/17/18 11:30 Completed CMP Stat Lab 03/17/18 11:30 Completed D-DIMER QUANTITATION Stat Lab 03/17/18 11:30 Completed LIPID PROFILE AM.LAB Lab 03/18/18 04:00 Ordered Lactic Acid Stat Lab 03/17/18 11:34 Completed Lactic Acid Stat Lab 03/17/18 14:00 Completed MAGNESIUM Stat Lab 03/17/18 11:30 Completed Manual Differential NC Stat Lab 03/17/18 11:30 Completed NT PRO BNP Stat Lab 03/17/18 11:30 Completed PROTIME WITH INR Stat Lab 03/17/18 11:30 Completed TROPONIN Q3H Lab 03/17/18 11:30 Completed TROPONIN Q3H Lab 03/17/18 14:15 Received TROPONIN Q3H Lab 03/17/18 17:30 Ordered TROPONIN Q3H Lab 03/17/18 20:30 Ordered TROPONIN Q3H Lab 03/17/18 23:30 Ordered EKG Q8HX2,QAMX3,PRN RT 03/17/18 14:50 Ordered Oxygen NASAL CANNULA 2 lpm RT 03/17/18 14:53 Ordered Pulse Oximetry Q4H RT 03/17/18 14:50 Ordered Respiratory Nebulizer STAT RT 03/17/18 11:32 Active Respiratory Nebulizer STAT RT 03/17/18 14:11 Active Respiratory Therapy Assessment DAILY RT 03/17/18 12:27 Active Transfer Order Routine Transfer 03/17/18 Ordered Medication Summary Generic Name Dose Route Start Last Admin Trade Name Freq PRN Reason Stop Dose Admin Acetaminophen 650 mg 03/17/18 14:50 Tylenol 325 Mg PO 04/16/18 14:49 Q4H PRN PRN PAIN AND/OR FEVER Al Hydrox/Mg Hydrox/Simethicone 30 ml 03/17/18 14:50 Maalox Es 30 Ml Unit Dose PO 04/16/18 14:49 Q4H PRN PRN INDIGESTION Albuterol/Ipratropium 3 ml 03/17/18 14:56 Duoneb 0.5-3 Mg/3 Ml Neb IH 04/16/18 14:55 Q4HPRN PRN SHORTNESS OF BREATH/WHEEZING Aspirin 325 mg 03/18/18 10:00 Ecotrin 325 Mg PO 04/17/18 09:59 DAILY JAIME Sodium Chloride 1,000 mls @ 50 mls/hr 03/17/18 11:30 03/17/18 11:56 Sodium Chloride 0.9% 1000 Ml IV 04/16/18 11:29 50 mls/hr .Q20H JAIME Administration Levofloxacin/Dextrose 500 mg in 100 mls @ 100 mls/hr 03/18/18 10:00 Levofloxacin 500mg/100ml D5w IV 04/17/18 09:59 Q24H10 JAIME Levalbuterol HCl 1.25 mg 03/17/18 14:56 Xopenex 1.25 Mg/0.5 Ml Ud Nebule IH 04/16/18 14:55 Q2HPRN PRN DIFFICULTY BREATHING Magnesium Hydroxide 30 - 60 ml 03/17/18 14:50 Milk Of Magnesia 30 Ml PO 04/16/18 14:49 QDP PRN CONSTIPATION Methylprednisolone Sodium Succinate 60 mg 03/17/18 15:00 Solu-Medrol 40 Mg IV 04/16/18 14:59 TID JAIME Nitroglycerin 0.4 mg 03/17/18 14:50 Nitrostat 0.4 Mg Tablet SL 04/16/18 14:49 .Q5MIN PRN CHEST PAIN Ondansetron HCl 4 mg 03/17/18 14:50 Zofran 4 Mg/2 Ml Vial IV 04/16/18 14:49 Q4H PRN PRN NAUSEA/VOMITING Senna/Docusate Sodium 2 udtab 03/17/18 14:50 Senokot-S Tablet PO 04/16/18 14:49 BID PRN PRN CONSTIPATION Discontinued Medications Generic Name Dose Route Start Last Admin Trade Name Freq PRN Reason Stop Dose Admin Albuterol/Ipratropium 3 ml 03/17/18 11:32 03/17/18 11:52 Duoneb 0.5-3 Mg/3 Ml Neb IH 03/17/18 11:33 3 ml STAT ONE Administration Albuterol/Ipratropium Confirm 03/17/18 11:48 Duoneb 0.5-3 Mg/3 Ml Neb Administered 03/17/18 11:49 Dose 3 ml IH .STK-MED ONE Albuterol/Ipratropium 3 ml 03/17/18 14:11 03/17/18 14:15 Duoneb 0.5-3 Mg/3 Ml Neb IH 03/17/18 14:12 3 ml STAT ONE Administration Albuterol/Ipratropium Confirm 03/17/18 14:13 Duoneb 0.5-3 Mg/3 Ml Neb Administered 03/17/18 14:14 Dose 3 ml IH .STK-MED ONE Aspirin 324 mg 03/17/18 11:28 03/17/18 11:54 Baby Aspirin 81 Mg Chew PO 03/17/18 11:29 324 mg STAT ONE Administration Aspirin Confirm 03/17/18 11:49 Baby Aspirin 81 Mg Chew Administered 03/17/18 11:50 Dose 324 mg .ROUTE .STK-MED ONE Levofloxacin/Dextrose 500 mg in 100 mls @ 100 mls/hr 03/17/18 11:35 03/17/18 11:55 Levofloxacin 500mg/100ml D5w IV 03/17/18 12:34 100 mls/hr STAT STA Administration Sodium Chloride 1,000 mls @ 999 mls/hr 03/17/18 11:46 03/17/18 14:53 Sodium Chloride 0.9% 1000 Ml IV 03/17/18 12:46 999 mls/hr .Q1H1M STA Infusion Levofloxacin/Dextrose Confirm 03/17/18 11:50 Levofloxacin 500mg/100ml D5w Administered 03/17/18 11:51 Dose 500 mg in 100 mls @ ud IV .STK-MED ONE Methylprednisolone Sodium Succinate 125 mg 03/17/18 11:35 03/17/18 11:55 Solu-Medrol 125 Mg IV 03/17/18 11:36 125 mg STAT ONE Administration Methylprednisolone Sodium Succinate Confirm 03/17/18 11:50 Solu-Medrol 125 Mg Administered 03/17/18 11:51 Dose 125 mg .ROUTE .STK-MED ONE Lab/Rad Data: Laboratory Result Diagrams 03/17/18 11:30 03/17/18 11:30 Laboratory Results 03/17/18 03/17/18 03/17/18 Range/Units 14:00 11:34 11:30 WBC (4.0-10.5) K/mm3 RBC (4.1-5.6) M/mm3 Hgb (12.5-18.0) gm/dl Hct (42-50) % MCV (78-100) fl MCH (26-32) pg MCHC (32-36) g/dl RDW (11.5-14.0) % Plt Count (150-450) K/mm3 MPV (6-9.5) fl Segmented Neutrophils (36.-66.) % Lymphocytes (Manual) (24-44) % Monocytes (Manual) (0.0-12.0) % Platelet Estimate (NORMAL) RBC Morphology PT (8.83-12.87) SECONDS INR (0.8-3.0) D-Dimer (215-500) ng/mL Sodium (137-145) mmol/L Potassium (3.5-5.1) mmol/L Chloride (98-107) mmol/L Carbon Dioxide (22-30) mmol/L Anion Gap (5-15) MEQ/L BUN (9-20) mg/dL Creatinine (0.66-1.25) mg/dL Estimated GFR ML/MIN Glucose (74-106) mg/dL Lactic Acid 1.8 2.4 H (0.4-2.0) Calcium (8.4-10.2) mg/dL Magnesium (1.6-2.3) mg/dL Total Bilirubin (0.2-1.3) mg/dL AST (17-59) U/L ALT (0-50) U/L Alkaline Phosphatase (38-126) U/L Troponin I < 0.012 (0.000-0.034) ng/mL NT-Pro-B Natriuret Pep (0-1800) pg/mL Serum Total Protein (6.3-8.2) g/dL Albumin (3.5-5.0) g/dL 03/17/18 03/17/18 03/17/18 Range/Units 11:30 11:30 11:30 WBC 13.4 H (4.0-10.5) K/mm3 RBC 4.43 (4.1-5.6) M/mm3 Hgb 14.0 (12.5-18.0) gm/dl Hct 44.1 (42-50) % MCV 99.5 (78-100) fl MCH 31.6 (26-32) pg MCHC 31.7 L (32-36) g/dl RDW 15.5 H (11.5-14.0) % Plt Count 253 (150-450) K/mm3 MPV 10.1 H (6-9.5) fl Segmented Neutrophils 67 H (36.-66.) % Lymphocytes (Manual) 21 L (24-44) % Monocytes (Manual) 12 (0.0-12.0) % Platelet Estimate NORMAL (NORMAL) RBC Morphology NORMAL PT 12.5 (8.83-12.87) SECONDS INR 1.07 (0.8-3.0) D-Dimer 561 H* (215-500) ng/mL Sodium 140 (137-145) mmol/L Potassium 5.5 H (3.5-5.1) mmol/L Chloride 100 (98-107) mmol/L Carbon Dioxide 32 H (22-30) mmol/L Anion Gap 13.0 (5-15) MEQ/L BUN 30 H (9-20) mg/dL Creatinine 0.46 L (0.66-1.25) mg/dL Estimated GFR > 60.0 ML/MIN Glucose 127 H (74-106) mg/dL Lactic Acid (0.4-2.0) Calcium 9.9 (8.4-10.2) mg/dL Magnesium 2.0 (1.6-2.3) mg/dL Total Bilirubin 0.70 (0.2-1.3) mg/dL AST 21 (17-59) U/L ALT 15 (0-50) U/L Alkaline Phosphatase 66 (38-126) U/L Troponin I (0.000-0.034) ng/mL NT-Pro-B Natriuret Pep 614 (0-1800) pg/mL Serum Total Protein 7.4 (6.3-8.2) g/dL Albumin 4.5 (3.5-5.0) g/dL - Progress Progress Note: 03/17/18 12:45 DUO NEB, IV BOLUS 1000ML BOLUS, SOLUMEDROL 125MG AND AFTER 2 SETS BLOOD CULTURES LEVAQUIN 500MG IVPB - Departure Time of Disposition: 15:00 Departure Disposition: Observation Clinical Impression: PNEUMONIA, EXACAERBATION COPD Condition: Stable Critical Care Time: No [facility] -
[2018-03-17] MEDS ORDERED: BABY ASPIRIN 81 MG CHEW PO ONE (11:28)
[2018-03-17] MEDS ORDERED: Sodium Chloride 0.9% 1000 ML 1,000 ML IV SCH (11:30)
[2018-03-17] MEDS ORDERED: DUONEB 0.5-3 MG/3 ml Neb IH ONE ×4 (11:32→14:13)
[2018-03-17] MEDS ORDERED: Levofloxacin 500MG/100ML D5W 500 MG/100 ML BAG IV STA (11:35)
[2018-03-17] MEDS ORDERED: solu-MEDROL 125 MG IV ONE (11:35)
[2018-03-17 11:44] LABS: Lactic Acid 2.4 (0.4-2.0)
[2018-03-17] MEDS ORDERED: Sodium Chloride 0.9% 1000 ML 1,000 ML IV STA (11:46)
[2018-03-17] MEDS ORDERED: BABY ASPIRIN 81 MG CHEW ONE (11:49)
[2018-03-17] MEDS ORDERED: solu-MEDROL 125 MG ONE (11:50)
[2018-03-17] MEDS ORDERED: Levofloxacin 500MG/100ML D5W 500 MG/100 ML BAG IV ONE (11:50)
[2018-03-17 12:01] LABS: Hematocrit 44.1 % (42-50); INR 1.07 (0.8-3.0); Mean Cell Volume 99.5 fl (78-100); Mean Corpuscular Hemoglobin 31.6 pg (26-32); Mean Corpuscular Hgb Concent. 31.7 g/dl (32-36); Mean Platelet Volume 10.1 fl (6-9.5); Platelet Count 253 K/mm3 (150-450); Red Blood Count 4.43 M/mm3 (4.1-5.6); Red Cell Distribution Width 15.5 % (11.5-14.0); White Blood Count 13.4 K/mm3 (4.0-10.5)
[2018-03-17 12:12] LABS: ALBUMIN 4.5 g/dL (3.5-5.0); ALKALINE PHOSPHATASE 66 U/L (38-126); BLOOD UREA NITROGEN 30 mg/dL (9-20); CHLORIDE 100 mmol/L (98-107); Calcium 9.9 mg/dL (8.4-10.2); Carbon Dioxide 32 mmol/L (22-30); Creatinine 1 0.46 mg/dL (0.66-1.25); Glucose 127 mg/dL (74-106); NT PRO BNP 614 pg/mL (0-1800); Potassium 5.5 mmol/L (3.5-5.1); SGOT/AST 21 U/L (17-59); SGPT/ALT 15 U/L (0-50); SODIUM 140 mmol/L (137-145); Total Protein 7.4 g/dL (6.3-8.2)
[2018-03-17 13:39] LABS: Lymphocytes 21 % (24-44); Monocyte 12 % (0.0-12.0); Neutrophils 67 % (36.-66.); Platelet Estimate NORMAL (NORMAL); Total Cells Counted 100
[2018-03-17] MEDS ORDERED: MILK OF MAGNESIA 30 ML PO PRN (14:50)
[2018-03-17] MEDS ORDERED: TYLENOL 325 MG PO PRN (14:50)
[2018-03-17] MEDS ORDERED: Senokot-S Tablet PO PRN (14:50)
[2018-03-17] MEDS ORDERED: Nitrostat 0.4 MG Tablet SL PRN (14:50)
[2018-03-17] MEDS ORDERED: Zofran 4 MG/2 ML VIAL IV PRN (14:50)
[2018-03-17] MEDS ORDERED: Xopenex 1.25 MG/0.5 ML UD NEBULE IH PRN (14:56)
[2018-03-17] MEDS ORDERED: Tussionex Pennkinetic Susp PO PRN (16:24)
[2018-03-17 18:05] LABS: BLOOD UREA NITROGEN 23 mg/dL (9-20); CHLORIDE 103 mmol/L (98-107); Calcium 8.5 mg/dL (8.4-10.2); Carbon Dioxide 25 mmol/L (22-30); Glucose 318 mg/dL (74-106); Potassium 4.2 mmol/L (3.5-5.1); SODIUM 138 mmol/L (137-145)
[2018-03-17] MEDS ORDERED: Sodium Chloride 0.9% 500 ML 500 ML IV ONE (18:57)
[2018-03-17] MEDS: DUONEB 0.5-3 MG/3 ml Neb IH PRN (19:44)
--- NOTE | 2018-03-17 20:29 | XRAY ---
Indication: Short of breath and productive cough. Elevated d-dimer. Multiple contiguous axial images obtained through the chest using 80 cc Isovue 370 contrast and PE protocol. Comparison: None There is good opacification of the pulmonary arteries. No filling defect or pulmonary embolus. Heart is not enlarged. [place] mediastinal and right hilar calcified nodes. No pathologic mediastinal/hilar lymphadenopathy. Examination of the lung parenchyma is hyperinflated with mild bilateral dependent atelectasis. Posterior medial left lower lobe demonstrates small focus of peripheral infiltrate versus atelectasis. Bony thorax intact with osteopenia, multilevel degenerative spondylosis, and remote-appearing multilevel thoracolumbar compression deformities, greatest L2 with complete collapse. Limited upper abdomen unremarkable. Impression: 1. Negative pulmonary embolus. 2. Small focus left lower lobe infiltrate versus atelectasis. Correlate clinically. 3. Evidence for old granulomatous disease. 4. Osteopenia, multilevel degenerative spondylosis, and multilevel remote compression deformities. Comment: Preliminary interpretation was made by [facility] who does not report incidental chronic bony findings. CTDI 13.33
--- NOTE | 2018-03-17 20:31 | XRAY ---
Indication: Numbness one month. No known injury. Comparison: None 3 nonweightbearing views of the right foot demonstrates osteopenia, advanced 1st MTP degenerative changes, and mild forefoot soft tissue swelling. No other bony, articular, or soft tissue abnormalities.
--- NOTE | 2018-03-17 20:31 | XRAY ---
Indication: Short of breath and productive cough. Comparison: March 18, 2017. Portable chest hyperinflated and clear. Heart is not enlarged again with mediastinal/hilar calcified nodes. Bony thorax intact with osteopenia, degenerative spondylosis, and multilevel remote appearing compression deformities. Impression: Nonacute hyperinflated chest with chronic features.
--- NOTE | 2018-03-17 21:03 | PCM.HP ---
History of Present Illness - Chief Complaint Chief Complaint: copd. Pneumonia History of Present Illness: is a 87 year old male pt of Dr. Pat with COPD who was admitted with COPD exacerbation and pneumonia through the ER c/o 1 day of increasing SOB and sputum production. In the ER he was given IV steroid and IV levaquin. Troponin was negative. CXR nonacute. D-dimer elevated and CT chest with neg PE, + LLL infiltrate. He states he feels much better than at admission. After admission his bp dropped to 75/46 and he was given a 500cc bolus of NS , with improvement of BP to 96 systolic. - Review of Systems Constitutional: Chills, Fatigue, No Fever Respiratory: Cough, Short Of Breath, Wheezing Cardiac: Chest Pain (with coughing) Abdominal/Gastrointestinal: Abdominal Pain (prior mid abd pain) Psychological: Anxiety, Depression, No Suicidal Ideations, No Homicidal Ideations All Other Systems: Reviewed and Negative Medications & Allergies Home Medications: Home Medication List Meloxicam 7.5 mg [Mobic 7.5 MG] 7.5 mg PO DAILY 12/23/16 [History Confirmed 03/17/18] Acetaminophen 325 mg [Tylenol 325 mg] 650 mg PO Q6H PRN PRN #60 tablet [Rx Confirmed 03/17/18] Docusate Sodium 100 mg [Colace 100 MG] 100 mg PO BID #60 capsule 12/27/16 [Rx Confirmed 03/17/18] Alendronate Sodium 70 mg [Fosamax 70 MG] 70 mg PO WEEKLY 03/18/17 [ History Confirmed 03/17/18] Albuterol Sulfate [Proventil Hfa] 2 puffs IH Q4-6HPRN PRN #2 [id number] [Rx Confirmed 03/17/18] Budesonide/Formoterol Fumarate [Symbicort 160-4.5 Mcg Inhaler] 1 puff IH DAILY 03/17/18 [History Confirmed 03/17/18] Allergies/Adverse Reactions: Allergies Allergy/AdvReac Type Severity Reaction Status Date / Time No Known Drug Allergies Allergy Verified 03/18/17 13:09 - Past Medical History Past Medical History: Yes Neurological History: No Pertinent History ENT History: Macular Degeneration Cardiac History: No Pertinent History Respiratory History: COPD, Emphysema Endocrine Medical History: No Pertinent History Musculoskelatal History: Osteoarthritis GI Medical History: No Pertinent History History: No Pertinent History Pyscho-Social History: No Pertinent History Male Reproductive Disorders: No Pertinent History Comment: Arthritis in back - Past Surgical History Past Surgical History: Yes Neuro Surgical History: No Pertinent History Cardiac History: No Pertinent History Respiratory Surgery: No Pertinent History GI Surgical History: No Pertinent History Genitourinary Surgical Hx: Other Musculskeletal Surgical Hx: Orthopedic Surgery Male Surgical History: Testicular Surgery Other Surgical History: states had testicle removed 60 years ago LLL FX repair. - Social History Smoking Status: Current every day smoker How long have you smoked: 75 years Exposure to second hand smoke: Yes Alcohol: None Drug Use: none Significant Family History: no pertinent family hx - Physical Exam Vital Signs: Vital Signs - 24 hr Temp Pulse Pulse Resp BP Pulse Ox 03/17/18 20:30 20 96 03/17/18 19:46 92 H 20 96 03/17/18 19:30 98.3 F 97 H 95/61 03/17/18 19:00 97.7 F 99 H 22 75/46 96 03/17/18 15:35 97.4 F 101 H 22 99/59 96 03/17/18 14:58 96 03/17/18 14:50 95 H 18 92/76 100 03/17/18 14:22 97/64 03/17/18 14:11 85 16 99 03/17/18 13:51 89 18 94/71 100 03/17/18 12:13 89 18 94/72 100 03/17/18 12:04 90 18 86/62 100 03/17/18 11:52 89 14 99 03/17/18 11:21 98 F 108 H 20 121/78 96 Oxygen-Last 24 hours O2 Percentage 2 Liters = 28% O2 Percentage 2 Liters = 28% O2 Percentage 2 Liters = 28% O2 Percentage 2 Liters = 28% O2 Percentage 2 Liters = 28% O2 Percentage 2 Liters = 28% General Appearance: no apparent distress, cachetic Neurologic Exam: alert, cooperative Eye Exam: eyes nml inspection Neck Exam: normal inspection, non-tender, No lymphadenopathy Respiratory Exam: diminished breath sounds (poor to fair air exchange), prolonged expirations, rhonchi (scattered throughout), wheezing (throughout) Cardiovascular Exam: regular rate/rhythm, normal heart sounds, No murmur Gastrointestinal/Abdomen Exam: soft, normal bowel sounds, No tenderness, No distention, No mass, No guarding, No rebound Extremity Exam: normal inspection, No pedal edema, No swelling Skin Exam: normal color, warm, dry, No rash Results - Labs Lab/Micro Results: Lab Results-Last 24 Hours 03/17/18 03/17/18 03/17/18 Range/Units 11:30 11:30 11:30 WBC 13.4 H (4.0-10.5) K/mm3 RBC 4.43 (4.1-5.6) M/mm3 Hgb 14.0 (12.5-18.0) gm/dl Hct 44.1 (42-50) % MCV 99.5 (78-100) fl MCH 31.6 (26-32) pg MCHC 31.7 L (32-36) g/dl RDW 15.5 H (11.5-14.0) % Plt Count 253 (150-450) K/mm3 MPV 10.1 H (6-9.5) fl Segmented Neutrophils 67 H (36.-66.) % Lymphocytes (Manual) 21 L (24-44) % Monocytes (Manual) 12 (0.0-12.0) % Platelet Estimate NORMAL (NORMAL) RBC Morphology NORMAL PT 12.5 (8.83-12.87) SECONDS INR 1.07 (0.8-3.0) D-Dimer 561 H* (215-500) ng/mL Sodium 140 (137-145) mmol/L Potassium 5.5 H (3.5-5.1) mmol/L Chloride 100 (98-107) mmol/L Carbon Dioxide 32 H (22-30) mmol/L Anion Gap 13.0 (5-15) MEQ/L BUN 30 H (9-20) mg/dL Creatinine 0.46 L (0.66-1.25) mg/dL Estimated GFR > 60.0 ML/MIN Glucose 127 H (74-106) mg/dL Lactic Acid (0.4-2.0) Calcium 9.9 (8.4-10.2) mg/dL Magnesium 2.0 (1.6-2.3) mg/dL Total Bilirubin 0.70 (0.2-1.3) mg/dL AST 21 (17-59) U/L ALT 15 (0-50) U/L Alkaline Phosphatase 66 (38-126) U/L Troponin I (0.000-0.034) ng/mL NT-Pro-B Natriuret Pep 614 (0-1800) pg/mL Serum Total Protein 7.4 (6.3-8.2) g/dL Albumin 4.5 (3.5-5.0) g/dL 03/17/18 03/17/18 03/17/18 Range/Units 11:30 11:34 14:00 WBC (4.0-10.5) K/mm3 RBC (4.1-5.6) M/mm3 Hgb (12.5-18.0) gm/dl Hct (42-50) % MCV (78-100) fl MCH (26-32) pg MCHC (32-36) g/dl RDW (11.5-14.0) % Plt Count (150-450) K/mm3 MPV (6-9.5) fl Segmented Neutrophils (36.-66.) % Lymphocytes (Manual) (24-44) % Monocytes (Manual) (0.0-12.0) % Platelet Estimate (NORMAL) RBC Morphology PT (8.83-12.87) SECONDS INR (0.8-3.0) D-Dimer (215-500) ng/mL Sodium (137-145) mmol/L Potassium (3.5-5.1) mmol/L Chloride (98-107) mmol/L Carbon Dioxide (22-30) mmol/L Anion Gap (5-15) MEQ/L BUN (9-20) mg/dL Creatinine (0.66-1.25) mg/dL Estimated GFR ML/MIN Glucose (74-106) mg/dL Lactic Acid 2.4 H 1.8 (0.4-2.0) Calcium (8.4-10.2) mg/dL Magnesium (1.6-2.3) mg/dL Total Bilirubin (0.2-1.3) mg/dL AST (17-59) U/L ALT (0-50) U/L Alkaline Phosphatase (38-126) U/L Troponin I < 0.012 (0.000-0.034) ng/mL NT-Pro-B Natriuret Pep (0-1800) pg/mL Serum Total Protein (6.3-8.2) g/dL Albumin (3.5-5.0) g/dL 03/17/18 03/17/18 03/17/18 Range/Units 14:15 17:30 17:30 WBC (4.0-10.5) K/mm3 RBC (4.1-5.6) M/mm3 Hgb (12.5-18.0) gm/dl Hct (42-50) % MCV (78-100) fl MCH (26-32) pg MCHC (32-36) g/dl RDW (11.5-14.0) % Plt Count (150-450) K/mm3 MPV (6-9.5) fl Segmented Neutrophils (36.-66.) % Lymphocytes (Manual) (24-44) % Monocytes (Manual) (0.0-12.0) % Platelet Estimate (NORMAL) RBC Morphology PT (8.83-12.87) SECONDS INR (0.8-3.0) D-Dimer (215-500) ng/mL Sodium 138 (137-145) mmol/L Potassium 4.2 (3.5-5.1) mmol/L Chloride 103 (98-107) mmol/L Carbon Dioxide 25 (22-30) mmol/L Anion Gap 14.0 (5-15) MEQ/L BUN 23 H (9-20) mg/dL Creatinine 0.50 L (0.66-1.25) mg/dL Estimated GFR > 60.0 ML/MIN Glucose 318 H (74-106) mg/dL Lactic Acid (0.4-2.0) Calcium 8.5 (8.4-10.2) mg/dL Magnesium (1.6-2.3) mg/dL Total Bilirubin (0.2-1.3) mg/dL AST (17-59) U/L ALT (0-50) U/L Alkaline Phosphatase (38-126) U/L Troponin I < 0.012 < 0.012 (0.000-0.034) ng/mL NT-Pro-B Natriuret Pep (0-1800) pg/mL Serum Total Protein (6.3-8.2) g/dL Albumin (3.5-5.0) g/dL - Radiology Impressions Radiology Exams & Impressions: Radiology Procedures Category Date Time Status CHEST 1 VIEW (PORTABLE) Stat Exams 03/17/18 11:29 Completed CHEST WITH CONTRAST [CT] Stat Exams 03/17/18 12:28 Completed FOOT (MINIMUM 3 VIEWS) Stat Exams 03/17/18 12:15 Completed - Other Procedures and Tests Respiratory Therapy 03/17/18 14:53 Oxygen NASAL CANNULA 2 lpm 03/17/18 19:00 Respiratory Therapy Assessment DAILY 03/18/18 06:00 EKG REPEAT IN AM Assessment/Plan (1) Pneumonia Current Visit: No Status: Acute Qualifiers: Pneumonia type: due to unspecified organism Laterality: left Lung location: lower lobe of lung Qualified Code(s): J18.1 - Lobar pneumonia, unspecified organism Assessment & Plan: on IV levaquin. IV solumedrol 60mg q8h. Code(s): J18.9 - PNEUMONIA, UNSPECIFIED ORGANISM (2) Tobacco abuse disorder Current Visit: No Status: Chronic Code(s): Z72.0 - TOBACCO USE (3) COPD (chronic obstructive pulmonary disease) Current Visit: No Status: Chronic Qualifiers: COPD type: unspecified COPD Qualified Code(s): J44.9 - Chronic obstructive pulmonary disease, unspecified
[2018-03-17] MEDS: solu-MEDROL 125 MG IV SCH (21:14)
[2018-03-17] MEDS: Colace 100 MG PO SCH (21:14)
[2018-03-17] MEDS: LEVOPHED 4 MG/4 ML 4,000 MCG in Dextrose 5%/Water IV Soln. 500 ML 500 ML IV PRN (22:10)
[2018-03-18] MEDS: Sodium Chloride 0.9% 1000 ML 1,000 ML IV SCH ×3 (01:47→23:16)
[2018-03-18] MEDS: solu-MEDROL 125 MG IV SCH ×3 (05:34→21:58)
[2018-03-18 06:06] LABS: BLOOD UREA NITROGEN 21 mg/dL (9-20); CHLORIDE 104 mmol/L (98-107); Carbon Dioxide 25 mmol/L (22-30); Creatinine 1 0.37 mg/dL (0.66-1.25); Glucose 157 mg/dL (74-106); SODIUM 134 mmol/L (137-145)
[2018-03-18 06:07] LABS: BASOPHIL % 0.1 % (0.0-0.4); Basophil (Absolute #) 0.01 (0-0.4); Calcium 8.2 mg/dL (8.4-10.2); Eosinophil (Absolute #) 0 (0-0.5); Granulocyte Absolute (ANC) 12.14 (1.4-6.9); Granulocytes % 87.2 % (36.0-66.0); Hematocrit 34.5 % (42-50); Hemoglobin 11.1 gm/dl (12.5-18.0); Lymphocyte (Absolute #) 0.61 (1.0-4.6); Lymphocytes % 4.4 % (24.0-44.0); Mean Cell Volume 98.6 fl (78-100); Mean Corpuscular Hemoglobin 31.7 pg (26-32); Mean Corpuscular Hgb Concent. 32.2 g/dl (32-36); Mean Platelet Volume 9.7 fl (6-9.5); Monocyte (Absolute #) 1.15 (0.0-1.3); Monocytes % 8.3 % (0.0-12.0); Platelet Count 255 K/mm3 (150-450); Red Cell Distribution Width 15.1 % (11.5-14.0); White Blood Count 13.9 K/mm3 (4.0-10.5)
[2018-03-18 06:08] LABS: Potassium 4.3 mmol/L (3.5-5.1)
[2018-03-18 06:09] LABS: Risk Ratio 2.7
[2018-03-18 06:11] LABS: ANION GAP 9.4 MEQ/L (5-15)
[2018-03-18] MEDS ORDERED: Advair Hfa 115/21 Common canister IH SCH (07:00)
[2018-03-18] MEDS: LEVOPHED 4 MG/4 ML 4,000 MCG in Dextrose 5%/Water IV Soln. 500 ML 500 ML IV PRN ×3 (07:00→23:16)
[2018-03-18] MEDS: Advair Hfa 230/21 Mcg COMMON CANISTER IH SCH ×2 (07:47→20:23)
--- NOTE | 2018-03-18 08:52 | PCM.NOTE ---
Date and Time: 03/18/18846 Subjective Assessment: Last night pt's bp dropped into the 70s; he was asymptomatic but was moved to the ICU on levophed drip. This morning he was still feeling much better than at admission, was eating breakfast (ate nearly 100%) and choked on some food. Levophed drip had been decreased to 6 mcg/min, then the BP started dropping into the 80s and it was increased back to 7 mcg/min. He still notes he feels much better than at admission. He had 1500 cc fluid in yesterday and 175 cc out on the last shift. Has some incontinence though but has been using the urinal. - Review of Systems Constitutional: Weakness Respiratory: Cough Objective Exam General Appearance: severe distress (initially, as I entered he was choking. After he coughed for some time, he was in no distress), cachetic Neurologic Exam: alert, cooperative Skin Exam: normal color, warm, dry, No rash Ears, Nose, Throat Exam: moist mucous membranes Respiratory Exam: diminished breath sounds, prolonged expirations, rhonchi ( scattered throughout), wheezing (expiratory, throughout) Cardiovascular Exam: normal heart sounds, tachycardia Gastrointestinal/Abdomen Exam: soft, No tenderness, No distention Extremity Exam: No pedal edema, No swelling Back Exam: normal inspection, No rash OBJECTIVE DATA Vital Signs: Vital Signs - 24 hr Temp Pulse Pulse Resp BP Pulse Ox 03/18/18 07:40 97.7 F 69 20 109/64 99 03/18/18 07:31 56 L 16 03/18/18 07:13 54 L 16 99 03/18/18 04:00 98.7 F 61 21 117/64 98 03/17/18 23:54 80 03/17/18 23:51 98.2 F 62 17 101/64 99 03/17/18 21:30 78/48 03/17/18 20:30 20 96 03/17/18 19:46 92 H 20 96 03/17/18 19:30 98.3 F 97 H 95/61 03/17/18 19:00 97.7 F 99 H 22 75/46 96 03/17/18 15:35 97.4 F 101 H 22 99/59 96 03/17/18 14:58 96 03/17/18 14:50 95 H 18 92/76 100 03/17/18 14:22 97/64 03/17/18 14:11 85 16 99 03/17/18 13:51 89 18 94/71 100 03/17/18 12:13 89 18 94/72 100 03/17/18 12:04 90 18 86/62 100 03/17/18 11:52 89 14 99 03/17/18 11:21 98 F 108 H 20 121/78 96 Oxygen-Last 24 hours O2 Percentage 2 Liters = 28% O2 Percentage 2 Liters = 28% O2 Percentage 2 Liters = 28% O2 Percentage 2 Liters = 28% O2 Percentage 2 Liters = 28% O2 Percentage 2 Liters = 28% O2 Percentage 2 Liters = 28% O2 Percentage 2 Liters = 28% O2 Percentage 2 Liters = 28% Oxygen Flowrate (L/min)-RT 2 Oxygen Flowrate (L/min)-RT 2 Oxygen Flowrate (L/min)-RT 2 Pain Assessment - Last Documented Pain Intensity 0 Pain Scale Used 0-10 Pain Scale,FLACC Intake and Output: Intake & Output 03/15/18 03/16/18 03/17/18 03/18/18 11:59 11:59 11:59 11:59 Intake Total 1810 Output Total 675 Balance 1135 Weight 49.895 kg 48.8 kg Lab Results: Lab Results-Last 24 Hours 03/17/18 03/17/18 03/17/18 Range/Units 11:30 11:30 11:30 WBC 13.4 H (4.0-10.5) K/mm3 RBC 4.43 (4.1-5.6) M/mm3 Hgb 14.0 (12.5-18.0) gm/dl Hct 44.1 (42-50) % MCV 99.5 (78-100) fl MCH 31.6 (26-32) pg MCHC 31.7 L (32-36) g/dl RDW 15.5 H (11.5-14.0) % Plt Count 253 (150-450) K/mm3 MPV 10.1 H (6-9.5) fl Gran % (36.0-66.0) % Eos # (Auto) (0-0.5) Absolute Lymphs (auto) (1.0-4.6) Absolute Monos (auto) (0.0-1.3) Lymphocytes % (24.0-44.0) % Monocytes % (0.0-12.0) % Eosinophils % (0.00-5.0) % Basophils % (0.0-0.4) % Absolute Granulocytes (1.4-6.9) Segmented Neutrophils 67 H (36.-66.) % Lymphocytes (Manual) 21 L (24-44) % Monocytes (Manual) 12 (0.0-12.0) % Basophils # (0-0.4) Platelet Estimate NORMAL (NORMAL) RBC Morphology NORMAL PT 12.5 (8.83-12.87) SECONDS INR 1.07 (0.8-3.0) D-Dimer 561 H* (215-500) ng/mL Sodium 140 (137-145) mmol/L Potassium 5.5 H (3.5-5.1) mmol/L Chloride 100 (98-107) mmol/L Carbon Dioxide 32 H (22-30) mmol/L Anion Gap 13.0 (5-15) MEQ/L BUN 30 H (9-20) mg/dL Creatinine 0.46 L (0.66-1.25) mg/dL Estimated GFR > 60.0 ML/MIN Glucose 127 H (74-106) mg/dL Lactic Acid (0.4-2.0) Calcium 9.9 (8.4-10.2) mg/dL Magnesium 2.0 (1.6-2.3) mg/dL Total Bilirubin 0.70 (0.2-1.3) mg/dL AST 21 (17-59) U/L ALT 15 (0-50) U/L Alkaline Phosphatase 66 (38-126) U/L Troponin I (0.000-0.034) ng/mL NT-Pro-B Natriuret Pep 614 (0-1800) pg/mL Serum Total Protein 7.4 (6.3-8.2) g/dL Albumin 4.5 (3.5-5.0) g/dL Triglycerides (30-150) mg/dL Cholesterol (50-200) mg/dL LDL Cholesterol (30-100) mg/dL HDL Cholesterol (40-60) mg/dL Heart Disease Risk Ratio 03/17/18 03/17/18 03/17/18 Range/Units 11:30 11:34 14:00 WBC (4.0-10.5) K/mm3 RBC (4.1-5.6) M/mm3 Hgb (12.5-18.0) gm/dl Hct (42-50) % MCV (78-100) fl MCH (26-32) pg MCHC (32-36) g/dl RDW (11.5-14.0) % Plt Count (150-450) K/mm3 MPV (6-9.5) fl Gran % (36.0-66.0) % Eos # (Auto) (0-0.5) Absolute Lymphs (auto) (1.0-4.6) Absolute Monos (auto) (0.0-1.3) Lymphocytes % (24.0-44.0) % Monocytes % (0.0-12.0) % Eosinophils % (0.00-5.0) % Basophils % (0.0-0.4) % Absolute Granulocytes (1.4-6.9) Segmented Neutrophils (36.-66.) % Lymphocytes (Manual) (24-44) % Monocytes (Manual) (0.0-12.0) % Basophils # (0-0.4) Platelet Estimate (NORMAL) RBC Morphology PT (8.83-12.87) SECONDS INR (0.8-3.0) D-Dimer (215-500) ng/mL Sodium (137-145) mmol/L Potassium (3.5-5.1) mmol/L Chloride (98-107) mmol/L Carbon Dioxide (22-30) mmol/L Anion Gap (5-15) MEQ/L BUN (9-20) mg/dL Creatinine (0.66-1.25) mg/dL Estimated GFR ML/MIN Glucose (74-106) mg/dL Lactic Acid 2.4 H 1.8 (0.4-2.0) Calcium (8.4-10.2) mg/dL Magnesium (1.6-2.3) mg/dL Total Bilirubin (0.2-1.3) mg/dL AST (17-59) U/L ALT (0-50) U/L Alkaline Phosphatase (38-126) U/L Troponin I < 0.012 (0.000-0.034) ng/mL NT-Pro-B Natriuret Pep (0-1800) pg/mL Serum Total Protein (6.3-8.2) g/dL Albumin (3.5-5.0) g/dL Triglycerides (30-150) mg/dL Cholesterol (50-200) mg/dL LDL Cholesterol (30-100) mg/dL HDL Cholesterol (40-60) mg/dL Heart Disease Risk Ratio 03/17/18 03/17/18 03/17/18 Range/Units 14:15 17:30 17:30 WBC (4.0-10.5) K/mm3 RBC (4.1-5.6) M/mm3 Hgb (12.5-18.0) gm/dl Hct (42-50) % MCV (78-100) fl MCH (26-32) pg MCHC (32-36) g/dl RDW (11.5-14.0) % Plt Count (150-450) K/mm3 MPV (6-9.5) fl Gran % (36.0-66.0) % Eos # (Auto) (0-0.5) Absolute Lymphs (auto) (1.0-4.6) Absolute Monos (auto) (0.0-1.3) Lymphocytes % (24.0-44.0) % Monocytes % (0.0-12.0) % Eosinophils % (0.00-5.0) % Basophils % (0.0-0.4) % Absolute Granulocytes (1.4-6.9) Segmented Neutrophils (36.-66.) % Lymphocytes (Manual) (24-44) % Monocytes (Manual) (0.0-12.0) % Basophils # (0-0.4) Platelet Estimate (NORMAL) RBC Morphology PT (8.83-12.87) SECONDS INR (0.8-3.0) D-Dimer (215-500) ng/mL Sodium 138 (137-145) mmol/L Potassium 4.2 (3.5-5.1) mmol/L Chloride 103 (98-107) mmol/L Carbon Dioxide 25 (22-30) mmol/L Anion Gap 14.0 (5-15) MEQ/L BUN 23 H (9-20) mg/dL Creatinine 0.50 L (0.66-1.25) mg/dL Estimated GFR > 60.0 ML/MIN Glucose 318 H (74-106) mg/dL Lactic Acid (0.4-2.0) Calcium 8.5 (8.4-10.2) mg/dL Magnesium (1.6-2.3) mg/dL Total Bilirubin (0.2-1.3) mg/dL AST (17-59) U/L ALT (0-50) U/L Alkaline Phosphatase (38-126) U/L Troponin I < 0.012 < 0.012 (0.000-0.034) ng/mL NT-Pro-B Natriuret Pep (0-1800) pg/mL Serum Total Protein (6.3-8.2) g/dL Albumin (3.5-5.0) g/dL Triglycerides (30-150) mg/dL Cholesterol (50-200) mg/dL LDL Cholesterol (30-100) mg/dL HDL Cholesterol (40-60) mg/dL Heart Disease Risk Ratio 03/17/18 03/17/18 03/18/18 Range/Units 20:30 23:35 05:35 WBC (4.0-10.5) K/mm3 RBC (4.1-5.6) M/mm3 Hgb (12.5-18.0) gm/dl Hct (42-50) % MCV (78-100) fl MCH (26-32) pg MCHC (32-36) g/dl RDW (11.5-14.0) % Plt Count (150-450) K/mm3 MPV (6-9.5) fl Gran % (36.0-66.0) % Eos # (Auto) (0-0.5) Absolute Lymphs (auto) (1.0-4.6) Absolute Monos (auto) (0.0-1.3) Lymphocytes % (24.0-44.0) % Monocytes % (0.0-12.0) % Eosinophils % (0.00-5.0) % Basophils % (0.0-0.4) % Absolute Granulocytes (1.4-6.9) Segmented Neutrophils (36.-66.) % Lymphocytes (Manual) (24-44) % Monocytes (Manual) (0.0-12.0) % Basophils # (0-0.4) Platelet Estimate (NORMAL) RBC Morphology PT (8.83-12.87) SECONDS INR (0.8-3.0) D-Dimer (215-500) ng/mL Sodium (137-145) mmol/L Potassium (3.5-5.1) mmol/L Chloride (98-107) mmol/L Carbon Dioxide (22-30) mmol/L Anion Gap (5-15) MEQ/L BUN (9-20) mg/dL Creatinine (0.66-1.25) mg/dL Estimated GFR ML/MIN Glucose (74-106) mg/dL Lactic Acid (0.4-2.0) Calcium (8.4-10.2) mg/dL Magnesium (1.6-2.3) mg/dL Total Bilirubin (0.2-1.3) mg/dL AST (17-59) U/L ALT (0-50) U/L Alkaline Phosphatase (38-126) U/L Troponin I < 0.012 < 0.012 (0.000-0.034) ng/mL NT-Pro-B Natriuret Pep (0-1800) pg/mL Serum Total Protein (6.3-8.2) g/dL Albumin (3.5-5.0) g/dL Triglycerides 52 (30-150) mg/dL Cholesterol 134 (50-200) mg/dL LDL Cholesterol 77 (30-100) mg/dL HDL Cholesterol 50 (40-60) mg/dL Heart Disease Risk Ratio 2.7 03/18/18 03/18/18 Range/Units 05:35 05:35 WBC 13.9 H (4.0-10.5) K/mm3 RBC 3.50 L (4.1-5.6) M/mm3 Hgb 11.1 L (12.5-18.0) gm/dl Hct 34.5 L (42-50) % MCV 98.6 (78-100) fl MCH 31.7 (26-32) pg MCHC 32.2 (32-36) g/dl RDW 15.1 H (11.5-14.0) % Plt Count 255 (150-450) K/mm3 MPV 9.7 H (6-9.5) fl Gran % 87.2 H (36.0-66.0) % Eos # (Auto) 0 (0-0.5) Absolute Lymphs (auto) 0.61 L (1.0-4.6) Absolute Monos (auto) 1.15 (0.0-1.3) Lymphocytes % 4.4 L (24.0-44.0) % Monocytes % 8.3 (0.0-12.0) % Eosinophils % 0.0 (0.00-5.0) % Basophils % 0.1 (0.0-0.4) % Absolute Granulocytes 12.14 H (1.4-6.9) Segmented Neutrophils (36.-66.) % Lymphocytes (Manual) (24-44) % Monocytes (Manual) (0.0-12.0) % Basophils # 0.01 (0-0.4) Platelet Estimate (NORMAL) RBC Morphology PT (8.83-12.87) SECONDS INR (0.8-3.0) D-Dimer (215-500) ng/mL Sodium 134 L (137-145) mmol/L Potassium 4.3 (3.5-5.1) mmol/L Chloride 104 (98-107) mmol/L Carbon Dioxide 25 (22-30) mmol/L Anion Gap 9.4 (5-15) MEQ/L BUN 21 H (9-20) mg/dL Creatinine 0.37 L (0.66-1.25) mg/dL Estimated GFR > 60.0 ML/MIN Glucose 157 H (74-106) mg/dL Lactic Acid (0.4-2.0) Calcium 8.2 L (8.4-10.2) mg/dL Magnesium (1.6-2.3) mg/dL Total Bilirubin (0.2-1.3) mg/dL AST (17-59) U/L ALT (0-50) U/L Alkaline Phosphatase (38-126) U/L Troponin I (0.000-0.034) ng/mL NT-Pro-B Natriuret Pep (0-1800) pg/mL Serum Total Protein (6.3-8.2) g/dL Albumin (3.5-5.0) g/dL Triglycerides (30-150) mg/dL Cholesterol (50-200) mg/dL LDL Cholesterol (30-100) mg/dL HDL Cholesterol (40-60) mg/dL Heart Disease Risk Ratio Radiology Exams: Radiology Procedures Category Date Time Status BLADDER [US] Urgent Exams 03/18/18 08:20 Ordered CHEST 1 VIEW (PORTABLE) Stat Exams 03/17/18 11:29 Completed CHEST WITH CONTRAST [CT] Stat Exams 03/17/18 12:28 Completed FOOT (MINIMUM 3 VIEWS) Stat Exams 03/17/18 12:15 Completed Assessment/Plan (1) Sepsis Current Visit: Yes Status: Acute Assessment & Plan: Likely, with his hypotension and oliguria. Doing bladder scan; if no bladder distension, will start giving boluses of fluid. For now, will increase IVF to 100cc/hr. (2) Pneumonia Current Visit: No Status: Acute Qualifiers: Pneumonia type: due to unspecified organism Laterality: left Lung location: lower lobe of lung Qualified Code(s): J18.1 - Lobar pneumonia, unspecified organism Assessment & Plan: On IV levaquin and solumedrol (60mg IV q6h). His breathing is better than at admission. I discussed with his son at bedside that this is a serious infection and his age and lung condition make recovery more difficult, but I am cautiously optimistic. Code(s): J18.9 - PNEUMONIA, UNSPECIFIED ORGANISM (3) Tobacco abuse disorder Current Visit: No Status: Chronic Code(s): Z72.0 - TOBACCO USE (4) COPD (chronic obstructive pulmonary disease) Current Visit: No Status: Chronic Qualifiers: COPD type: unspecified COPD Qualified Code(s): J44.9 - Chronic obstructive pulmonary disease, unspecified
[2018-03-18] MEDS ORDERED: NON-FORMULARY ITEM (Budesonide/Formoterol Fumarate [Symbicort 160-4.5 Mcg Inhaler] 1 PUFF) IH SCH (10:00)
[2018-03-18] MEDS: Ecotrin 325 MG PO SCH (10:01)
[2018-03-18] MEDS: Levofloxacin 500MG/100ML D5W 500 MG/100 ML BAG IV SCH (10:01)
[2018-03-18] MEDS: Colace 100 MG PO SCH ×2 (10:01→21:58)
[2018-03-18] MEDS: Mobic 7.5 MG PO SCH (10:01)
--- NOTE | 2018-03-18 10:17 | XRAY ---
Indication: Poor urinary output. Two-dimensional ultrasound of the urinary bladder performed. Comparison: None Urinary bladder normally distended with prevoid volume 289 cc. Mild hypoechogenic debris seen in the dependent portion. No focal bladder mass. Ureteral jets not seen within the allotted exam time. Enlarged prostate gland impresses on the base of the bladder. No post void images obtained as the patient was unable to void. Impression: 1. Hypoechogenic debris in the bladder. 2. Enlarged prostate gland. 3. Prevoid volume is 289 cc. Patient unable to void. Rule out neurogenic bladder versus outlet obstruction.
[2018-03-18] MEDS: DUONEB 0.5-3 MG/3 ml Neb IH PRN (20:21)
[2018-03-19] MEDS: solu-MEDROL 125 MG IV SCH ×3 (06:08→22:11)
[2018-03-19] MEDS: Advair Hfa 230/21 Mcg COMMON CANISTER IH SCH ×2 (07:20→19:47)
[2018-03-19] MEDS: DUONEB 0.5-3 MG/3 ml Neb IH PRN ×4 (07:20→19:47)
[2018-03-19 08:03] LABS: BASOPHIL % 0.1 % (0.0-0.4); Basophil (Absolute #) 0.02 (0-0.4); Eosinophil % 0.1 % (0.00-5.0); Eosinophil (Absolute #) 0.01 (0-0.5); Granulocyte Absolute (ANC) 11.59 (1.4-6.9); Granulocytes % 84.5 % (36.0-66.0); Hematocrit 34.9 % (42-50); Hemoglobin 11.3 gm/dl (12.5-18.0); Lymphocyte (Absolute #) 0.73 (1.0-4.6); Lymphocytes % 5.3 % (24.0-44.0); Mean Corpuscular Hemoglobin 31.7 pg (26-32); Mean Corpuscular Hgb Concent. 32.4 g/dl (32-36); Mean Platelet Volume 9.7 fl (6-9.5); Monocyte (Absolute #) 1.37 (0.0-1.3); Platelet Count 239 K/mm3 (150-450); Red Blood Count 3.56 M/mm3 (4.1-5.6); Red Cell Distribution Width 15.3 % (11.5-14.0); White Blood Count 13.7 K/mm3 (4.0-10.5)
[2018-03-19 08:30] LABS: ANION GAP 9.1 MEQ/L (5-15); BLOOD UREA NITROGEN 17 mg/dL (9-20); CHLORIDE 105 mmol/L (98-107); Calcium 8.4 mg/dL (8.4-10.2); Carbon Dioxide 26 mmol/L (22-30); Creatinine 1 0.37 mg/dL (0.66-1.25); Glucose 126 mg/dL (74-106); Potassium 4.1 mmol/L (3.5-5.1); SODIUM 137 mmol/L (137-145)
--- NOTE | 2018-03-19 08:37 | PCM.NOTE ---
Date and Time: 03/19/18 0834 Subjective Assessment: Pt continued to eat well yesterday. States he feels "wonderful!" Breathing is good. He is down to 5mcg/min levophed IV. He had 875 out yesterday (2200 in). - Review of Systems Constitutional: No Fever Respiratory: Cough Objective Exam General Appearance: no apparent distress, alert, cachetic Neurologic Exam: oriented x 3, cooperative Skin Exam: normal color, warm, dry, No rash Ears, Nose, Throat Exam: moist mucous membranes Respiratory Exam: diminished breath sounds, prolonged expirations, rhonchi ( throughout), wheezing (exp, throughout), No crackles/rales Cardiovascular Exam: tachycardia, irregular, No murmur OBJECTIVE DATA Vital Signs: Vital Signs - 24 hr Temp Pulse Resp BP Pulse Ox 03/19/18 08:00 98 F 106 H 21 106/74 97 03/19/18 07:47 96 03/19/18 07:23 58 L 18 100 03/19/18 07:22 70 18 100 03/19/18 07:00 50 L 18 112/67 100 03/19/18 04:00 98.4 F 73 22 125/75 97 03/19/18 00:01 84 03/19/18 00:00 98.5 F 84 22 104/52 97 03/18/18 20:21 68 21 96 03/18/18 20:00 98.1 F 67 21 99/62 96 03/18/18 16:00 97.8 F 64 25 H 122/87 97 03/18/18 15:57 64 03/18/18 15:00 97 03/18/18 12:00 97.8 F 76 24 112/59 98 03/18/18 10:52 98 Oxygen-Last 24 hours O2 Percentage 3 Liters = 32% O2 Percentage 2 Liters = 28% O2 Percentage 2 Liters = 28% O2 Percentage 2 Liters = 28% O2 Percentage 2 Liters = 28% Oxygen Flowrate (L/min)-RT 2 Oxygen Flowrate (L/min)-RT 2 Oxygen Flowrate (L/min)-RT 2 Oxygen Flowrate (L/min)-RT 2 Oxygen Flowrate (L/min)-RT 2 Pain Assessment - Last Documented Pain Intensity 0 Pain Scale Used 0-10 Pain Scale Intake and Output: Intake & Output 11/10/18 11/11/18 11/12/18 11/13/18 11:59 11:59 11:59 11:59 Intake Total 1810 5208 Output Total 955 1994 Balance 859 1713 Weight 49.895 kg 48.8 kg 51.4 kg Lab Results: Lab Results-Last 24 Hours 03/19/18 03/19/18 Range/Units 07:56 07:56 WBC 13.7 H (4.0-10.5) K/mm3 RBC 3.56 L (4.1-5.6) M/mm3 Hgb 11.3 L (12.5-18.0) gm/dl Hct 34.9 L (42-50) % MCV 98.0 (78-100) fl MCH 31.7 (26-32) pg MCHC 32.4 (32-36) g/dl RDW 15.3 H (11.5-14.0) % Plt Count 239 (150-450) K/mm3 MPV 9.7 H (6-9.5) fl Gran % 84.5 H (36.0-66.0) % Eos # (Auto) 0.01 (0-0.5) Absolute Lymphs (auto) 0.73 L (1.0-4.6) Absolute Monos (auto) 1.37 H (0.0-1.3) Lymphocytes % 5.3 L (24.0-44.0) % Monocytes % 10.0 (0.0-12.0) % Eosinophils % 0.1 (0.00-5.0) % Basophils % 0.1 (0.0-0.4) % Absolute Granulocytes 11.59 H (1.4-6.9) Basophils # 0.02 (0-0.4) Sodium 137 (137-145) mmol/L Potassium 4.1 (3.5-5.1) mmol/L Chloride 105 (98-107) mmol/L Carbon Dioxide 26 (22-30) mmol/L Anion Gap 9.1 (5-15) MEQ/L BUN 17 (9-20) mg/dL Creatinine 0.37 L (0.66-1.25) mg/dL Estimated GFR > 60.0 ML/MIN Glucose 126 H (74-106) mg/dL Calcium 8.4 (8.4-10.2) mg/dL Radiology Exams: Radiology Procedures Category Date Time Status BLADDER [US] Urgent Exams 03/18/18 08:20 Completed CHEST 1 VIEW (PORTABLE) Stat Exams 03/17/18 11:29 Completed CHEST WITH CONTRAST [CT] Stat Exams 03/17/18 12:28 Completed FOOT (MINIMUM 3 VIEWS) Stat Exams 03/17/18 12:15 Completed Multi-Disciplinary Progress Notes: Multi-Disciplinary Progress Notes 03/18/18 17:38 Physical Therapy Note by Allison Russell THERAPY INTERVENTION HELD TODAY DUE TO UNSTABLE BP REQUIRING LEVOPHED DRIP. WILL MONITOR. Initialized on 03/18/18 17:38 - END OF NOTE Assessment/Plan (1) Sepsis Current Visit: Yes Status: Acute Qualifiers: Sepsis type: sepsis due to unspecified organism Qualified Code(s): A41.9 - Sepsis, unspecified organism Assessment & Plan: Appears improved today. Still getting fluids at 100cc/hr - will check portable chest for fluid overload (exam makes it difficult to auscultate crackles). On IV Levaquin day #3. (2) Pneumonia Current Visit: No Status: Acute Qualifiers: Pneumonia type: due to unspecified organism Laterality: left Lung location: lower lobe of lung Qualified Code(s): J18.1 - Lobar pneumonia, unspecified organism Code(s): J18.9 - PNEUMONIA, UNSPECIFIED ORGANISM (3) Tobacco abuse disorder Current Visit: No Status: Chronic Code(s): Z72.0 - TOBACCO USE (4) COPD (chronic obstructive pulmonary disease) Current Visit: No Status: Chronic Qualifiers: COPD type: unspecified COPD Qualified Code(s): J44.9 - Chronic obstructive pulmonary disease, unspecified (5) HTN (hypertension) Current Visit: Yes Status: Acute Qualifiers: Hypertension type: essential hypertension Qualified Code(s): I10 - Essential (primary) hypertension Code(s): I10 - ESSENTIAL (PRIMARY) HYPERTENSION
--- NOTE | 2018-03-19 09:02 | XRAY ---
Indication: Cough. Pneumonia. Comparison: March 17, 2018. Portable chest now demonstrates bibasilar infiltrates/atelectasis with small left effusion. Heart and mediastinal structures within normal limits again with calcified nodes. Remaining heart and lungs unremarkable.
[2018-03-19] MEDS: Colace 100 MG PO SCH ×2 (09:09→22:11)
[2018-03-19] MEDS: Ecotrin 325 MG PO SCH (09:09)
[2018-03-19] MEDS: Mobic 7.5 MG PO SCH (09:10)
[2018-03-19] MEDS: Sodium Chloride 0.9% 1000 ML 1,000 ML IV SCH ×2 (09:10→20:30)
[2018-03-19] MEDS: Levofloxacin 500MG/100ML D5W 500 MG/100 ML BAG IV SCH (09:10)
[2018-03-19] MEDS: LEVOPHED 4 MG/4 ML 4,000 MCG in Dextrose 5%/Water IV Soln. 500 ML 500 ML IV PRN (11:43)
[2018-03-19] MEDS: DUONEB 0.5-3 MG/3 ml Neb IH SCH (23:02)
[2018-03-20] MEDS: solu-MEDROL 125 MG IV SCH ×3 (05:08→21:16)
[2018-03-20 05:58] LABS: Hematocrit 31.7 % (42-50); Hemoglobin 10.1 gm/dl (12.5-18.0); Mean Cell Volume 98.4 fl (78-100); Mean Corpuscular Hgb Concent. 31.9 g/dl (32-36); Mean Platelet Volume 10.2 fl (6-9.5); Platelet Count 217 K/mm3 (150-450); Red Blood Count 3.22 M/mm3 (4.1-5.6); Red Cell Distribution Width 15.2 % (11.5-14.0); White Blood Count 12.2 K/mm3 (4.0-10.5)
[2018-03-20 06:04] LABS: Mean Corpuscular Hemoglobin 31.3 pg (26-32)
[2018-03-20] MEDS: DUONEB 0.5-3 MG/3 ml Neb IH SCH ×6 (06:04→23:51)
[2018-03-20] MEDS: Advair Hfa 230/21 Mcg COMMON CANISTER IH SCH ×2 (06:34→19:56)
[2018-03-20 06:56] LABS: ANION GAP 9.5 MEQ/L (5-15); BLOOD UREA NITROGEN 16 mg/dL (9-20); CHLORIDE 103 mmol/L (98-107); Calcium 8.2 mg/dL (8.4-10.2); Carbon Dioxide 28 mmol/L (22-30); Creatinine 1 0.34 mg/dL (0.66-1.25); Glucose 116 mg/dL (74-106); Potassium 3.9 mmol/L (3.5-5.1); SODIUM 136 mmol/L (137-145)
[2018-03-20 07:12] LABS: Lymphocytes 3 % (24-44); Monocyte 2 % (0.0-12.0); Neutrophils 95 % (36.-66.); Total Cells Counted 100
[2018-03-20 07:13] LABS: ANISOCYTOSIS 1+; Platelet Estimate NORMAL (NORMAL); Poikilocytosis 1+
--- NOTE | 2018-03-20 09:33 | PCM.NOTE ---
Date and Time: 03/20/18929 Subjective Assessment: Pt with no complaints this morning. Has been off the levophed drip since 3 am - bp were 100s systolic, but most recent 85 systolic. He does note that his usual blood pressure can be in the 100s. asymptomatic. - Review of Systems Constitutional: No Fever Respiratory: Cough Objective Exam General Appearance: no apparent distress, cachetic Neurologic Exam: alert, cooperative Skin Exam: normal color, warm, dry, No rash Ears, Nose, Throat Exam: moist mucous membranes Respiratory Exam: diminished breath sounds (fair to good air exchange), prolonged expirations, wheezing (exp, throughout), No crackles/rales, No rhonchi Cardiovascular Exam: normal heart sounds, tachycardia, No murmur Extremity Exam: No pedal edema, No swelling OBJECTIVE DATA Vital Signs: Vital Signs - 24 hr Temp Pulse Resp BP Pulse Ox 03/20/18 09:00 87 21 84/61 100 03/20/18 08:00 97.8 F 90 21 82/54 95 03/20/18 07:00 72 27 H 97/59 97 03/20/18 06:36 65 18 98 03/20/18 06:00 98.5 F 70 17 96/61 97 03/20/18 05:00 98.5 F 76 23 99/67 97 03/20/18 04:00 98.5 F 63 18 92/56 95 03/20/18 03:00 98.1 F 83 20 110/67 97 03/20/18 02:00 99.1 F 78 21 116/69 96 03/20/18 01:00 99.1 F 81 26 H 107/73 96 03/20/18 00:01 86 03/20/18 00:00 99.1 F 95 H 22 109/65 96 03/19/18 23:59 22 96 03/19/18 23:02 91 H 23 97 03/19/18 23:00 98.5 F 95 H 21 107/68 96 03/19/18 22:00 98.5 F 102 H 21 100/72 96 03/19/18 21:00 98.5 F 99 H 21 90/61 95 03/19/18 19:51 98.5 F 74 26 H 104/69 95 03/19/18 19:48 89 26 H 98 03/19/18 19:00 98.7 F 75 27 H 98/65 97 03/19/18 18:00 71 22 95/60 97 03/19/18 17:00 108 H 22 90/75 97 03/19/18 16:10 97 H 20 96 03/19/18 16:00 99.2 F 98 H 24 118/74 96 03/19/18 15:00 98 H 24 110/69 94 L 03/19/18 14:00 87 17 111/71 96 03/19/18 13:00 102 H 21 101/65 97 03/19/18 12:00 114 H 21 109/78 96 03/19/18 11:22 73 20 95 03/19/18 11:00 80 21 94/61 96 03/19/18 10:00 72 18 86/63 96 Pain Assessment - Last Documented Pain Intensity 0 Pain Scale Used 0-10 Pain Scale,FLACC Intake and Output: Intake & Output 03/17/18 03/18/18 03/19/18 03/20/18 11:59 11:59 11:59 11:59 Intake Total 1810 5208 4125 Output Total 955 2245 2200 Balance 855 2963 1925 Weight 49.895 kg 48.8 kg 51.4 kg 52.3 kg Lab Results: Lab Results-Last 24 Hours 03/20/18 03/20/18 Range/Units 05:38 05:38 WBC 12.2 H (4.0-10.5) K/mm3 RBC 3.22 L (4.1-5.6) M/mm3 Hgb 10.1 L (12.5-18.0) gm/dl Hct 31.7 L (42-50) % MCV 98.4 (78-100) fl MCH 31.3 (26-32) pg MCHC 31.9 L D (32-36) g/dl RDW 15.2 H (11.5-14.0) % Plt Count 217 (150-450) K/mm3 MPV 10.2 H (6-9.5) fl Segmented Neutrophils 95 H (36.-66.) % Lymphocytes (Manual) 3 L (24-44) % Monocytes (Manual) 2 (0.0-12.0) % Platelet Estimate NORMAL (NORMAL) RBC Morphology ABNORMAL Poikilocytosis 1+ Anisocytosis 1+ Sodium 136 L (137-145) mmol/L Potassium 3.9 (3.5-5.1) mmol/L Chloride 103 (98-107) mmol/L Carbon Dioxide 28 (22-30) mmol/L Anion Gap 9.5 (5-15) MEQ/L BUN 16 (9-20) mg/dL Creatinine 0.34 L (0.66-1.25) mg/dL Estimated GFR > 60.0 ML/MIN Glucose 116 H (74-106) mg/dL Calcium 8.2 L (8.4-10.2) mg/dL Radiology Exams: Radiology Procedures Category Date Time Status CHEST 1 VIEW (PORTABLE) Routine Exams 03/19/18 08:37 Completed Multi-Disciplinary Progress Notes: Multi-Disciplinary Progress Notes 03/19/18 23:05 Respiratory Note by Reyes Davis RT HAS BEEN TREATING PT W/ DUO Q4 ALL DAY DUE TO COARSE INSP AND EXP WHEEZING. I CHANGED ORDER FROM PRN TO Q4. WILL CONTINUE TO MONITOR. Initialized on 03/19/18 23:05 - END OF NOTE Assessment/Plan (1) Sepsis Current Visit: Yes Status: Acute Qualifiers: Sepsis type: sepsis due to unspecified organism Qualified Code(s): A41.9 - Sepsis, unspecified organism Assessment & Plan: improved. Off pressors for now. If stays off through the morning, may be able to transfer to med-surg. (2) Pneumonia Current Visit: No Status: Acute Qualifiers: Pneumonia type: due to unspecified organism Laterality: left Lung location: lower lobe of lung Qualified Code(s): J18.1 - Lobar pneumonia, unspecified organism Assessment & Plan: On IV levaquin. Code(s): J18.9 - PNEUMONIA, UNSPECIFIED ORGANISM (3) Tobacco abuse disorder Current Visit: No Status: Chronic Code(s): Z72.0 - TOBACCO USE (4) COPD (chronic obstructive pulmonary disease) Current Visit: No Status: Chronic Qualifiers: COPD type: unspecified COPD Qualified Code(s): J44.9 - Chronic obstructive pulmonary disease, unspecified (5) HTN (hypertension) Current Visit: Yes Status: Chronic Qualifiers: Hypertension type: essential hypertension Qualified Code(s): I10 - Essential (primary) hypertension Assessment & Plan: On pt's problem list, but no anti-hypertensives listed on home med list. Code(s): I10 - ESSENTIAL (PRIMARY) HYPERTENSION
[2018-03-20] MEDS: Sodium Chloride 0.9% 1000 ML 1,000 ML IV SCH ×2 (09:56→19:57)
[2018-03-20] MEDS: ENOXAPARIN SODIUM SQ SCH (10:30)
[2018-03-20] MEDS: Levofloxacin 500MG/100ML D5W 500 MG/100 ML BAG IV SCH (10:30)
[2018-03-20] MEDS: Ecotrin 325 MG PO SCH (10:30)
[2018-03-20] MEDS: Colace 100 MG PO SCH ×2 (10:30→21:16)
[2018-03-20] MEDS: Mobic 7.5 MG PO SCH (11:35)
[2018-03-21] MEDS: DUONEB 0.5-3 MG/3 ml Neb IH SCH ×6 (03:45→22:51)
[2018-03-21] MEDS: Sodium Chloride 0.9% 1000 ML 1,000 ML IV SCH ×2 (05:46→17:05)
[2018-03-21] MEDS: solu-MEDROL 125 MG IV SCH ×3 (05:46→23:00)
[2018-03-21 06:07] LABS: Hematocrit 33.3 % (42-50); Hemoglobin 10.8 gm/dl (12.5-18.0); Mean Cell Volume 98.5 fl (78-100); Mean Corpuscular Hgb Concent. 32.4 g/dl (32-36); Mean Platelet Volume 9.2 fl (6-9.5); Platelet Count 211 K/mm3 (150-450); Red Blood Count 3.38 M/mm3 (4.1-5.6); Red Cell Distribution Width 15.3 % (11.5-14.0); White Blood Count 11.8 K/mm3 (4.0-10.5)
[2018-03-21 06:40] LABS: ANION GAP 8.1 MEQ/L (5-15); BLOOD UREA NITROGEN 19 mg/dL (9-20); CHLORIDE 103 mmol/L (98-107); Carbon Dioxide 29 mmol/L (22-30); Creatinine 1 0.43 mg/dL (0.66-1.25); Glucose 107 mg/dL (74-106); SODIUM 135 mmol/L (137-145)
[2018-03-21 06:45] LABS: Mean Corpuscular Hemoglobin 31.9 pg (26-32)
[2018-03-21] MEDS: Advair Hfa 230/21 Mcg COMMON CANISTER IH SCH ×2 (07:30→19:20)
[2018-03-21 08:39] LABS: Lymphocytes 10 % (24-44); Metamyelocyte 1 %; Monocyte 10 % (0.0-12.0); Neutrophils 79 % (36.-66.); Platelet Estimate NORMAL (NORMAL); Total Cells Counted 100
--- NOTE | 2018-03-21 08:39 | PCM.NOTE ---
Date and Time: 03/21/18 0837 Subjective Assessment: Feeling fine, gary po. Off pressors over 24h and having most BP in the 110s, occasionally down in th e80s, but asymptomatic. Objective Exam General Appearance: no apparent distress, alert, cachetic Neurologic Exam: oriented x 3, cooperative Skin Exam: normal color, warm, dry, No rash Ears, Nose, Throat Exam: moist mucous membranes Respiratory Exam: diminished breath sounds (poor to fair air exchange), prolonged expirations, wheezing (throughout), No crackles/rales, No rhonchi Cardiovascular Exam: regular rate/rhythm, normal heart sounds, No murmur Extremity Exam: No pedal edema, No swelling OBJECTIVE DATA Vital Signs: Vital Signs - 24 hr Temp Pulse Resp BP Pulse Ox 03/21/18 07:33 66 17 96 03/21/18 06:58 88 17 118/77 99 03/21/18 06:00 98.0 F 72 21 110/71 96 03/21/18 05:00 98.4 F 73 17 85/57 98 03/21/18 04:00 98.4 F 82 21 121/61 98 03/21/18 03:46 77 24 97 03/21/18 03:00 90 19 83/69 99 03/21/18 02:00 86 18 118/65 98 03/21/18 01:00 101 H 24 108/70 96 03/21/18 00:01 81 03/21/18 00:00 97.5 F 81 22 92/60 97 03/20/18 23:51 82 27 H 97 03/20/18 23:00 78 23 97/61 97 03/20/18 22:00 93 H 21 102/68 97 03/20/18 21:00 88 28 H 98/66 95 03/20/18 19:58 97.8 F 94 H 25 H 86/60 96 03/20/18 19:57 89 20 96 03/20/18 19:00 100 H 22 88/58 97 03/20/18 18:00 105 H 17 91/64 96 03/20/18 17:00 120 H 29 H 94/74 98 03/20/18 16:00 97.8 F 105 H 22 90/64 97 03/20/18 15:00 105 H 19 79/62 95 03/20/18 14:40 103 H 20 95 03/20/18 14:00 108 H 21 86/61 98 03/20/18 13:00 111 H 19 101/58 97 03/20/18 12:00 97.9 F 97 H 14 79/54 97 03/20/18 11:00 104 H 20 88/56 95 03/20/18 10:28 100 H 20 95 03/20/18 10:00 76 21 83/55 96 03/20/18 09:00 87 21 84/61 100 Pain Assessment - Last Documented Pain Intensity 0 Pain Scale Used 0-10 Pain Scale Intake and Output: Intake & Output 03/18/18 03/19/18 03/20/18 03/21/18 11:59 11:59 11:59 11:59 Intake Total 1810 5208 4125 3675 Output Total 955 2245 2200 1050 Balance 855 2963 1925 2625 Weight 48.8 kg 51.4 kg 52.3 kg 55.1 kg Lab Results: Lab Results-Last 24 Hours 03/21/18 03/21/18 Range/Units 05:55 05:55 WBC 11.8 H (4.0-10.5) K/mm3 RBC 3.38 L (4.1-5.6) M/mm3 Hgb 10.8 L (12.5-18.0) gm/dl Hct 33.3 L (42-50) % MCV 98.5 (78-100) fl MCH 31.9 (26-32) pg MCHC 32.4 D (32-36) g/dl RDW 15.3 H (11.5-14.0) % Plt Count 211 (150-450) K/mm3 MPV 9.2 (6-9.5) fl Sodium 135 L (137-145) mmol/L Potassium 4.0 (3.5-5.1) mmol/L Chloride 103 (98-107) mmol/L Carbon Dioxide 29 (22-30) mmol/L Anion Gap 8.1 (5-15) MEQ/L BUN 19 (9-20) mg/dL Creatinine 0.43 L (0.66-1.25) mg/dL Estimated GFR > 60.0 ML/MIN Glucose 107 H (74-106) mg/dL Calcium 8.0 L (8.4-10.2) mg/dL Radiology Exams: Radiology Procedures Category Date Time Status CHEST 1 VIEW (PORTABLE) Routine Exams 03/19/18 08:37 Completed Assessment/Plan (1) Sepsis Current Visit: Yes Status: Resolved Qualifiers: Sepsis type: sepsis due to unspecified organism Qualified Code(s): A41.9 - Sepsis, unspecified organism (2) Pneumonia Current Visit: No Status: Acute Qualifiers: Pneumonia type: due to unspecified organism Laterality: left Lung location: lower lobe of lung Qualified Code(s): J18.1 - Lobar pneumonia, unspecified organism Assessment & Plan: On IV levaquin. sounds better overall. transfer to med surg today. Code(s): J18.9 - PNEUMONIA, UNSPECIFIED ORGANISM (3) Tobacco abuse disorder Current Visit: No Status: Chronic Code(s): Z72.0 - TOBACCO USE (4) COPD (chronic obstructive pulmonary disease) Current Visit: No Status: Chronic Qualifiers: COPD type: unspecified COPD Qualified Code(s): J44.9 - Chronic obstructive pulmonary disease, unspecified (5) HTN (hypertension) Current Visit: Yes Status: Chronic Qualifiers: Hypertension type: essential hypertension Qualified Code(s): I10 - Essential (primary) hypertension Code(s): I10 - ESSENTIAL (PRIMARY) HYPERTENSION
[2018-03-21] MEDS: Colace 100 MG PO SCH ×2 (09:07→23:00)
[2018-03-21] MEDS: Mobic 7.5 MG PO SCH (09:08)
[2018-03-21] MEDS: Levofloxacin 500MG/100ML D5W 500 MG/100 ML BAG IV SCH (09:08)
[2018-03-21] MEDS: ENOXAPARIN SODIUM SQ SCH (09:11)
[2018-03-22] MEDS: MAALOX ES 30 ML UNIT DOSE PO PRN (00:41)
[2018-03-22] MEDS: Sodium Chloride 0.9% 1000 ML 1,000 ML IV SCH ×3 (03:22→14:06)
[2018-03-22] MEDS: DUONEB 0.5-3 MG/3 ml Neb IH SCH ×6 (04:10→23:01)
[2018-03-22 05:55] LABS: ANION GAP 7.7 MEQ/L (5-15); BLOOD UREA NITROGEN 22 mg/dL (9-20); CHLORIDE 100 mmol/L (98-107); Calcium 8.3 mg/dL (8.4-10.2); Carbon Dioxide 30 mmol/L (22-30); Creatinine 1 0.45 mg/dL (0.66-1.25); Glucose 114 mg/dL (74-106); Potassium 4.4 mmol/L (3.5-5.1); SODIUM 134 mmol/L (137-145)
[2018-03-22 06:07] LABS: Hematocrit 33.6 % (42-50); Hemoglobin 10.9 gm/dl (12.5-18.0); Mean Cell Volume 98.5 fl (78-100); Mean Corpuscular Hgb Concent. 32.4 g/dl (32-36); Mean Platelet Volume 9.8 fl (6-9.5); Platelet Count 234 K/mm3 (150-450); Red Blood Count 3.41 M/mm3 (4.1-5.6); Red Cell Distribution Width 15.4 % (11.5-14.0); White Blood Count 11.9 K/mm3 (4.0-10.5)
[2018-03-22] MEDS: solu-MEDROL 125 MG IV SCH (06:12)
[2018-03-22 06:17] LABS: Mean Corpuscular Hemoglobin 31.9 pg (26-32)
[2018-03-22] MEDS: Advair Hfa 230/21 Mcg COMMON CANISTER IH SCH ×2 (06:36→19:12)
[2018-03-22 07:10] LABS: BAND 4 % (0.0-2.0); Basophilic Stippling 1+; Hypochromia 1+; Lymphocytes 6 % (24-44); Monocyte 4 % (0.0-12.0); Neutrophils 86 % (36.-66.); Nucleated Red Blood Cell 1 %; Platelet Estimate NORMAL (NORMAL); Total Cells Counted 100
--- NOTE | 2018-03-22 08:12 | PCM.NOTE ---
Date and Time: 03/22/18 08 Subjective Assessment: Pt is feeling much better. Of oxygen since last night. - Review of Systems Constitutional: No Fever Respiratory: Cough Objective Exam General Appearance: no apparent distress, alert, cachetic Neurologic Exam: oriented x 3, cooperative Skin Exam: normal color, warm, dry, No rash Ears, Nose, Throat Exam: moist mucous membranes Respiratory Exam: diminished breath sounds (poor to fair air exchange), wheezing (faint occ wheezing), No crackles/rales, No rhonchi Cardiovascular Exam: regular rate/rhythm, normal heart sounds, No murmur Gastrointestinal/Abdomen Exam: soft, normal bowel sounds, No tenderness, No distention OBJECTIVE DATA Vital Signs: Vital Signs - 24 hr Temp Pulse Resp BP Pulse Ox 03/22/18 07:07 98 F 76 20 118/70 94 L 03/22/18 06:38 72 20 94 L 03/22/18 04:10 74 20 92 L 03/22/18 04:00 97.9 F 96 H 20 103/68 96 03/22/18 00:20 97.7 F 92 H 20 87/51 95 03/22/18 00:00 20 95 03/21/18 22:53 101 H 20 95 03/21/18 20:19 98.0 F 97 H 18 104/65 96 03/21/18 20:00 18 03/21/18 19:00 99 H 18 95 03/21/18 16:00 97.8 F 104 H 22 132/79 95 03/21/18 15:57 104 H 20 95 03/21/18 15:00 95 03/21/18 12:00 97.9 F 108 H 21 90/65 94 L 03/21/18 11:00 95 03/21/18 10:53 110 H 18 96 03/21/18 09:00 88 18 93/64 95 Pain Assessment - Last Documented Pain Intensity 0 Pain Scale Used 0-10 Pain Scale Intake and Output: Intake & Output 03/19/18 03/20/18 03/21/18 03/22/18 11:59 11:59 11:59 11:59 Intake Total 5208 4125 4075 2499 Output Total 2245 2200 1250 925 Balance 2963 1925 2825 1574 Weight 51.4 kg 52.3 kg 55.1 kg 56.4 kg Lab Results: Lab Results-Last 24 Hours 11/15/18 11/16/18 11/16/18 Range/Units 05:55 05:10 05:10 WBC 11.9 H (4.0-10.5) K/mm3 RBC 3.41 L (4.1-5.6) M/mm3 Hgb 10.9 L (12.5-18.0) gm/dl Hct 33.6 L (42-50) % MCV 98.5 (78-100) fl MCH 31.9 (26-32) pg MCHC 32.4 (32-36) g/dl RDW 15.4 H (11.5-14.0) % Plt Count 234 (150-450) K/mm3 MPV 9.8 H (6-9.5) fl Segmented Neutrophils 79 H 86 H (36.-66.) % Band Neutrophils 4 H (0.0-2.0) % Lymphocytes (Manual) 10 L 6 L (24-44) % Monocytes (Manual) 10 4 (0.0-12.0) % Metamyelocytes 1 % Nucleated RBCs 1 % Hypochromia 1+ Platelet Estimate NORMAL NORMAL (NORMAL) RBC Morphology NORMAL Basophilic Stippling 1+ Sodium 134 L (137-145) mmol/L Potassium 4.4 (3.5-5.1) mmol/L Chloride 100 (98-107) mmol/L Carbon Dioxide 30 (22-30) mmol/L Anion Gap 7.7 (5-15) MEQ/L BUN 22 H (9-20) mg/dL Creatinine 0.45 L (0.66-1.25) mg/dL Estimated GFR > 60.0 ML/MIN Glucose 114 H (74-106) mg/dL Calcium 8.3 L (8.4-10.2) mg/dL Multi-Disciplinary Progress Notes: Multi-Disciplinary Progress Notes 03/21/18 10:50 (created 03/21/18 14:54) Case Management Note by Laura Morrison PT AND FAMILY CONTINUE TO PLAN FOR PT TO RETURN HOME, AGREEABLE FOR SWING BED STAY IF NEEDED FOR STRENGTHENING PRIOR TO RETURN HOME. NO ADDNL NEEDS IDENTIFIED AT PRESENT TIME. WILL FOLLOW. Initialized on 03/21/18 14:54 - END OF NOTE Assessment/Plan (1) Pneumonia Current Visit: No Status: Acute Qualifiers: Pneumonia type: due to unspecified organism Laterality: left Lung location: lower lobe of lung Qualified Code(s): J18.1 - Lobar pneumonia, unspecified organism Assessment & Plan: much improved. will start weaning steroids and may be able to d/c home tomorrow or the next day. Code(s): J18.9 - PNEUMONIA, UNSPECIFIED ORGANISM (2) Tobacco abuse disorder Current Visit: No Status: Chronic Code(s): Z72.0 - TOBACCO USE (3) COPD (chronic obstructive pulmonary disease) Current Visit: No Status: Chronic Qualifiers: COPD type: unspecified COPD Qualified Code(s): J44.9 - Chronic obstructive pulmonary disease, unspecified (4) HTN (hypertension) Current Visit: Yes Status: Chronic Qualifiers: Hypertension type: essential hypertension Qualified Code(s): I10 - Essential (primary) hypertension Code(s): I10 - ESSENTIAL (PRIMARY) HYPERTENSION (5) Left hip pain Current Visit: No Status: Acute Assessment & Plan: Pt has chronic hip problem, apparently does not get out of bed much even at baseline. Code(s): M25.552 - PAIN IN LEFT HIP
[2018-03-22] MEDS: Colace 100 MG PO SCH ×2 (10:40→21:09)
[2018-03-22] MEDS: ENOXAPARIN SODIUM SQ SCH (10:40)
[2018-03-22] MEDS: Levofloxacin 500MG/100ML D5W 500 MG/100 ML BAG IV SCH (10:40)
[2018-03-22] MEDS: Mobic 7.5 MG PO SCH (10:40)
[2018-03-22] MEDS: solu-MEDROL 40 MG IV SCH (17:00)
[2018-03-23] MEDS: MAALOX ES 30 ML UNIT DOSE PO PRN (01:09)
[2018-03-23] MEDS: DUONEB 0.5-3 MG/3 ml Neb IH SCH ×6 (03:17→23:01)
[2018-03-23 05:56] LABS: ANION GAP 7.7 MEQ/L (5-15); BLOOD UREA NITROGEN 23 mg/dL (9-20); CHLORIDE 98 mmol/L (98-107); Calcium 8.3 mg/dL (8.4-10.2); Carbon Dioxide 32 mmol/L (22-30); Glucose 74 mg/dL (74-106); Potassium 4.2 mmol/L (3.5-5.1); SODIUM 134 mmol/L (137-145)
[2018-03-23 05:58] LABS: Granulocyte Absolute (ANC) 13.45 (1.4-6.9); Hematocrit 36.8 % (42-50); Hemoglobin 11.8 gm/dl (12.5-18.0); Mean Cell Volume 99.5 fl (78-100); Mean Corpuscular Hgb Concent. 32.1 g/dl (32-36); Mean Platelet Volume 9.8 fl (6-9.5); Platelet Count 271 K/mm3 (150-450); Red Cell Distribution Width 15.7 % (11.5-14.0); White Blood Count 17.1 K/mm3 (4.0-10.5)
[2018-03-23 06:14] LABS: Mean Corpuscular Hemoglobin 31.8 pg (26-32)
[2018-03-23] MEDS: Advair Hfa 230/21 Mcg COMMON CANISTER IH SCH ×2 (06:57→19:00)
[2018-03-23] MEDS: solu-MEDROL 40 MG IV SCH ×2 (08:00→17:06)
[2018-03-23 08:04] LABS: ANISOCYTOSIS 1+; ATYPICAL LYMPHS 1 %; Lymphocytes 12 % (24-44); Monocyte 6 % (0.0-12.0); Neutrophils 81 % (36.-66.); Platelet Estimate NORMAL (NORMAL); Total Cells Counted 100; Toxic Granulation 1+
--- NOTE | 2018-03-23 09:55 | PCM.NOTE ---
Date and Time: 03/23/18950 Subjective Assessment: Patient reports he started feeling more short of breath this morning. His nurse noted his O2 sat was below 90% and he was placed back on oxygen. she noted swelling toward his toes and around his right arm. He denies any chest pain. He reports his breathing is maybe a little better. He was given a breathing treatment he reports. - Review of Systems Constitutional: No Symptoms Eyes: No Symptoms Ears, Nose, & Throat: No Symptoms Respiratory: Short Of Breath Cardiac: No Symptoms Abdominal/Gastrointestinal: No Symptoms Genitourinary Symptoms: No Symptoms Musculoskeletal: No Symptoms Skin: No Symptoms Objective Exam General Appearance: other (Pursed lip breathing after talking for awhile, pleasant, alert) Neurologic Exam: cooperative, normal mood/affect Skin Exam: normal color, warm, dry, No rash Respiratory Exam: airway intact, prolonged expirations, other (Wheezes throughout, rhonchi throughout) Cardiovascular Exam: regular rate/rhythm, No murmur, No gallop Gastrointestinal/Abdomen Exam: soft, normal bowel sounds, other (mild left upper quadrant tenderness), No distention, No mass, No guarding Extremity Exam: other (swelling of forefeet bilat, mild swelling of forearms; no swelling of lower legs) OBJECTIVE DATA Vital Signs: Vital Signs - 24 hr Temp Pulse Resp BP Pulse Ox 03/23/18 08:10 99 H 30 H 90 L 03/23/18 08:00 97.4 F 86 20 137/78 91 L 03/23/18 07:55 20 03/23/18 06:59 89 20 93 L 03/23/18 04:00 97.7 F 88 22 114/65 95 03/23/18 03:17 88 22 95 03/23/18 00:00 22 03/22/18 23:53 97.9 F 80 22 121/70 94 L 03/22/18 23:01 80 22 94 L 03/22/18 20:00 19 03/22/18 19:53 97.9 F 93 H 19 132/80 96 03/22/18 19:10 93 H 24 95 03/22/18 16:07 97.5 F 90 20 107/62 95 03/22/18 16:00 20 03/22/18 14:36 101 H 22 96 03/22/18 12:17 78 20 110/68 96 03/22/18 12:00 20 03/22/18 11:24 104 H 20 98 Pain Assessment - Last Documented Pain Intensity 0 Pain Scale Used 0-10 Pain Scale Intake and Output: Intake & Output 03/21/18 03/22/18 03/23/18 03/24/18 06:59 06:59 06:59 06:59 Intake Total 3915 2899 2810 Output Total 1050 1125 1850 Balance 2865 1774 960 Weight 55.1 kg 56.4 kg Lab Results: Lab Results-Last 24 Hours 03/23/18 03/23/18 03/23/18 Range/Units 05:00 05:29 05:29 WBC 17.1 H (4.0-10.5) K/mm3 RBC 3.70 L (4.1-5.6) M/mm3 Hgb 11.8 L (12.5-18.0) gm/dl Hct 36.8 L (42-50) % MCV 99.5 (78-100) fl MCH 31.8 (26-32) pg MCHC 32.1 D (32-36) g/dl RDW 15.7 H (11.5-14.0) % Plt Count 271 (150-450) K/mm3 MPV 9.8 H (6-9.5) fl Absolute Granulocytes 13.45 H (1.4-6.9) Segmented Neutrophils 81 H (36.-66.) % Lymphocytes (Manual) 12 L (24-44) % Monocytes (Manual) 6 (0.0-12.0) % Atypical Lymphocytes 1 % Toxic Granulation 1+ Platelet Estimate NORMAL (NORMAL) RBC Morphology ABNORMAL Anisocytosis 1+ Sodium 134 L (137-145) mmol/L Potassium 4.2 (3.5-5.1) mmol/L Chloride 98 (98-107) mmol/L Carbon Dioxide 32 H (22-30) mmol/L Anion Gap 7.7 (5-15) MEQ/L BUN 23 H (9-20) mg/dL Creatinine 0.50 L (0.66-1.25) mg/dL Estimated GFR > 60.0 ML/MIN Glucose 74 (74-106) mg/dL Calcium 8.3 L (8.4-10.2) mg/dL NT-Pro-B Natriuret Pep 2080 H (0-1800) pg/mL Radiology Exams: Radiology Procedures Category Date Time Status CHEST 2 VIEWS (PA AND LAT) Stat Exams 03/23/18 08:41 Taken ECHO W/2D AND DOPPLER [US] Routine Exams 03/25/18 Ordered Multi-Disciplinary Progress Notes: Multi-Disciplinary Progress Notes 03/22/18 17:02 Case Management Note by Loretta Marie S/W NILSON, SHE FEELS THAT LONG PATIENT IS ABLE TO TRANSFER SELF THAT WITH THE COMBINATION OF FAMILY SUPPORT, PRIVATE PAID SUPPORT AND HHC THAT THEY FEEL LIKE PATIENT WILL DO WELL AT HOME BACK AT HIS PRIOR LEVEL OF FUNCTIONING. SHE REPORTS NH IS NOT AN OPTION, HE WILL NOT AGREE. Initialized on 03/22/18 17:02 - END OF NOTE 03/22/18 16:44 Case Management Note by Loretta Marie ATTEMPTED TO S/W PATIENT ABOUT PLANS ON DC. HE WISHED FOR ME TO TALK TO HIS DAUGHTER. SPOKE WITH NILSON ABOUT PATIENT'S NEEDS UPON DC. SHE STATED THAT SHE CHECKS ON HIM AND BRINGS HIM FOOD. SHE GIVES HIM HIS MEDICATIONS AND HAS A PERSON COME IN TWICE A WEEK TO BATH HIM. SHE IS OPEN TO HAVING [facility] SET UP. SHE HAS CHOSEN [facility]. I S/W AGUSTÍN AT [facility] AND NOTIFIED HER OF REFERRAL AND FAXED PROPER DOCUMENTATION TO [phone]. SHE CALLED BACK AND THEY HAVE ACCEPTED PATIENT. NURSING IS TO CALL [facility] AT [phone] AT TIME OF DC AND FAX DC INSTRUCTIONS TO [phone]. NOTIFIED NILSON, SHE VERIFIED UNDERSTANDING. HER MAIN CONCERN IS THE PATIENT BEING ABLE TO TRANSFER HIMSELF TO AND FROM [facility] SINCE HE IS HOME BY HIMSELF THE MAJORITY OF THE TIME. Initialized on 03/22/18 16:44 - END OF NOTE Assessment/Plan (1) Sepsis Current Visit: Yes Status: Resolved Qualifiers: Sepsis type: sepsis due to unspecified organism Qualified Code(s): A41.9 - Sepsis, unspecified organism Assessment & Plan: Continue levofloxacin this will be Day 6. He had been on pressors in the ICU during his earlier hospitalization so this has improved. His WBC is elevated again today which may be due to steroids that he has been on throughout his hospitalization. Overall prognosis is guarded. (2) COPD with exacerbation Current Visit: Yes Status: Acute Assessment & Plan: Continue breathing treatments and IV steroids. If needed, patient states he would be willing to use bipap. Code(s): J44.1 - CHRONIC OBSTRUCTIVE PULMONARY DISEASE W (ACUTE) EXACERBATION (3) CHF exacerbation Current Visit: Yes Status: Acute Assessment & Plan: Chest X-ray today shows bilat pleural effusions and elevated BNP. He had been on IV fluids at 100 mL/hr for the whole week until yesterday and his weight is up 13 lbs from admission. Will order Echo for Sunday. Code(s): I50.9 - HEART FAILURE, UNSPECIFIED (4) Pleural effusion due to CHF (congestive heart failure) Current Visit: Yes Status: Acute Code(s): I50.9 - HEART FAILURE, UNSPECIFIED (5) Tobacco abuse disorder Current Visit: No Status: Chronic Code(s): Z72.0 - TOBACCO USE (6) Pneumonia Current Visit: No Status: Acute Qualifiers: Pneumonia type: due to unspecified organism Laterality: left Lung location: lower lobe of lung Qualified Code(s): J18.1 - Lobar pneumonia, unspecified organism Assessment & Plan: Continue levofloxacin. Code(s): J18.9 - PNEUMONIA, UNSPECIFIED ORGANISM (7) HTN (hypertension) Current Visit: Yes Status: Chronic Qualifiers: Hypertension type: essential hypertension Qualified Code(s): I10 - Essential (primary) hypertension Assessment & Plan: Currently well controlled. Code(s): I10 - ESSENTIAL (PRIMARY) HYPERTENSION
[2018-03-23] MEDS ORDERED: Lasix 20 MG/2 ML IV SCH (10:00)
[2018-03-23] MEDS: Mobic 7.5 MG PO SCH (10:30)
[2018-03-23] MEDS: ENOXAPARIN SODIUM SQ SCH (10:30)
[2018-03-23] MEDS: Levofloxacin 500MG/100ML D5W 500 MG/100 ML BAG IV SCH (10:30)
[2018-03-23] MEDS: Colace 100 MG PO SCH ×2 (10:30→21:47)
[2018-03-23] MEDS ORDERED: Sodium Chloride 0.9% 500 ML 500 ML IV ONE (12:56)
[2018-03-23] MEDS ORDERED: Sodium Chloride 0.9% 250 ML 250 ML IV SCH (13:00)
--- NOTE | 2018-03-23 17:13 | XRAY ---
Indication: Short of breath. Comparison: March 19, 2018. PA/lateral chest again hyperinflated with interval worsening small bibasilar effusions/atelectasis again without cardiomegaly. Remaining heart and lungs unremarkable. Comment: Preliminary interpretation was made by [facility]. No discrepancy.
[2018-03-24] MEDS: DUONEB 0.5-3 MG/3 ml Neb IH SCH ×6 (02:59→23:28)
[2018-03-24] MEDS: solu-MEDROL 40 MG IV SCH ×2 (06:14→16:51)
[2018-03-24 06:17] LABS: ANION GAP 8.6 MEQ/L (5-15); BLOOD UREA NITROGEN 22 mg/dL (9-20); CHLORIDE 95 mmol/L (98-107); Calcium 8.5 mg/dL (8.4-10.2); Carbon Dioxide 35 mmol/L (22-30); Creatinine 1 0.51 mg/dL (0.66-1.25); Glucose 101 mg/dL (74-106); Potassium 4.4 mmol/L (3.5-5.1); SODIUM 134 mmol/L (137-145)
[2018-03-24 06:30] LABS: Hematocrit 36.9 % (42-50); Hemoglobin 11.9 gm/dl (12.5-18.0); Mean Cell Volume 98.7 fl (78-100); Mean Corpuscular Hemoglobin 31.8 pg (26-32); Mean Corpuscular Hgb Concent. 32.2 g/dl (32-36); Mean Platelet Volume 9.8 fl (6-9.5); Platelet Count 283 K/mm3 (150-450); Red Blood Count 3.74 M/mm3 (4.1-5.6); Red Cell Distribution Width 15.6 % (11.5-14.0); White Blood Count 16.8 K/mm3 (4.0-10.5)
[2018-03-24] MEDS ORDERED: Sodium Chloride 0.9% 1000 ML 1,000 ML IV SCH (07:15)
[2018-03-24] MEDS: Advair Hfa 230/21 Mcg COMMON CANISTER IH SCH ×2 (08:25→19:03)
[2018-03-24 08:35] LABS: Lymphocytes 18 % (24-44); Monocyte 4 % (0.0-12.0); Neutrophils 78 % (36.-66.); Total Cells Counted 100
[2018-03-24 08:36] LABS: ANISOCYTOSIS 1+; Platelet Estimate NORMAL (NORMAL); Toxic Granulation 1+
[2018-03-24] MEDS: ENOXAPARIN SODIUM SQ SCH (09:44)
[2018-03-24] MEDS: Mobic 7.5 MG PO SCH (09:44)
[2018-03-24] MEDS: Levofloxacin 500MG/100ML D5W 500 MG/100 ML BAG IV SCH (09:44)
[2018-03-24] MEDS: Colace 100 MG PO SCH ×2 (09:44→20:56)
--- NOTE | 2018-03-24 10:55 | PCM.NOTE ---
Date and Time: 03/24/18 1044 Subjective Assessment: His daughter states he does not walk at home but that he has to be able to transfer to go home. She reports his blood pressure usually runs on the lower end of normal. He feels like his breathing is a little better today. He had good output from the lasix yesterday however his systolic blood pressure did drop yesterday requiring a 250 mL NS bolus and then I also gave him 40 mL/hr NS overnight when his systolic bp was 87 around midnight. He was not symptomatic at midnight with this lower blood pressure. He was sleepy in the afternoon when he had the lower systolic blood pressure after receiving the lasix. He had 4 L out yesterday and 1348 mL in. His daughter reports he has smoked heavily since he was a child. He is not sure he wants to quit smoking. - Review of Systems Constitutional: Weakness Eyes: No Symptoms Ears, Nose, & Throat: No Symptoms Respiratory: Other (He reports smoking makes him cough so that he can cough up the phlegm. ) Cardiac: No Symptoms Abdominal/Gastrointestinal: No Symptoms Genitourinary Symptoms: No Symptoms Musculoskeletal: Other (generalized weakness) Objective Exam General Appearance: no apparent distress, alert, thin, other (Daughter, Amelia, at bedside) Neurologic Exam: alert, cooperative, normal mood/affect Skin Exam: normal color, warm, dry, No rash Respiratory Exam: other (few scattered rhonchi, no crackles, no wheezes) Cardiovascular Exam: regular rate/rhythm, normal heart sounds, No murmur, No friction rub, No gallop Gastrointestinal/Abdomen Exam: soft, normal bowel sounds, No tenderness, No distention, No mass Extremity Exam: other (no c/c/e) OBJECTIVE DATA Vital Signs: Vital Signs - 24 hr Temp Pulse Resp BP Pulse Ox 03/24/18 08:00 97.7 F 79 19 98/58 95 03/24/18 07:26 87 18 93 L 03/24/18 04:00 97.6 F 86 22 90/63 97 03/24/18 02:59 86 22 95 03/24/18 00:00 22 03/23/18 23:59 97.6 F 81 21 87/54 94 L 03/23/18 23:01 81 21 94 L 03/23/18 20:10 97.2 F 90 25 H 112/71 96 03/23/18 20:00 25 H 03/23/18 19:00 90 25 H 96 03/23/18 17:01 97.4 F 88 18 104/72 100 03/23/18 16:55 80 24 96 03/23/18 15:00 96 03/23/18 14:55 96 03/23/18 14:10 87 100/61 03/23/18 12:00 97.5 F 95 H 20 99 03/23/18 11:00 92 H 26 H 97 Oxygen-Last 24 hours O2 Percentage 1 Liter = 24% O2 Percentage 1 Liter = 24% O2 Percentage 1 Liter = 24% O2 Percentage 1 Liter = 24% O2 Percentage 2 Liters = 28% O2 Percentage 2 Liters = 28% O2 Percentage 2 Liters = 28% Pain Assessment - Last Documented Pain Intensity 0 Pain Scale Used FLACC Intake and Output: Intake & Output 03/22/18 03/23/18 03/24/18 03/25/18 06:59 06:59 06:59 06:59 Intake Total 2899 2810 1348 Output Total 1125 1850 4000 Balance 1774 960 -2652 Weight 56.4 kg 54.1 kg 53.6 kg Lab Results: Lab Results-Last 24 Hours 03/24/18 03/24/18 Range/Units 05:10 05:10 WBC 16.8 H (4.0-10.5) K/mm3 RBC 3.74 L (4.1-5.6) M/mm3 Hgb 11.9 L (12.5-18.0) gm/dl Hct 36.9 L (42-50) % MCV 98.7 (78-100) fl MCH 31.8 (26-32) pg MCHC 32.2 (32-36) g/dl RDW 15.6 H (11.5-14.0) % Plt Count 283 (150-450) K/mm3 MPV 9.8 H (6-9.5) fl Segmented Neutrophils 78 H (36.-66.) % Lymphocytes (Manual) 18 L (24-44) % Monocytes (Manual) 4 (0.0-12.0) % Toxic Granulation 1+ Platelet Estimate NORMAL (NORMAL) RBC Morphology ABNORMAL Anisocytosis 1+ Sodium 134 L (137-145) mmol/L Potassium 4.4 (3.5-5.1) mmol/L Chloride 95 L (98-107) mmol/L Carbon Dioxide 35 H (22-30) mmol/L Anion Gap 8.6 (5-15) MEQ/L BUN 22 H (9-20) mg/dL Creatinine 0.51 L (0.66-1.25) mg/dL Estimated GFR > 60.0 ML/MIN Glucose 101 (74-106) mg/dL Calcium 8.5 (8.4-10.2) mg/dL Radiology Exams: Radiology Procedures Category Date Time Status CHEST 2 VIEWS (PA AND LAT) Stat Exams 03/23/18 08:41 Completed ECHO W/2D AND DOPPLER [US] Routine Exams 03/25/18 Ordered Multi-Disciplinary Progress Notes: Multi-Disciplinary Progress Notes 03/23/18 17:50 Respiratory Note by Kishor Marvin PT WAS PLACED ON 1L NC AT 1730, DOWN FROM 2L NC, PT O2 SATURATION WAS 96% AT THAT TIME. Initialized on 03/23/18 17:50 - END OF NOTE 03/23/18 17:48 Respiratory Note by Kishor Marvin PT PLACED ON 2L NC DOWN FROM 3L NC AT 1306, PT O2 SATURATION WAS 97% AT THAT TIME, Initialized on 03/23/18 17:48 - END OF NOTE Assessment/Plan (1) Sepsis Current Visit: Yes Status: Resolved Onset Date: ~03/17/18 Qualifiers: Sepsis type: sepsis due to unspecified organism Qualified Code(s): A41.9 - Sepsis, unspecified organism Assessment & Plan: Continue with current treatment. Much improved. (2) COPD with exacerbation Current Visit: Yes Status: Acute Onset Date: ~03/17/18 Assessment & Plan: Continue with current treatment much improved. However due to his age, multiple medical problems, and long history of Tob use, his condition remains guarded. Code(s): J44.1 - CHRONIC OBSTRUCTIVE PULMONARY DISEASE W (ACUTE) EXACERBATION (3) CHF exacerbation Current Visit: Yes Status: Acute Onset Date: ~03/23/18 Assessment & Plan: Holding any further lasix at this time due to drop in blood pressure with dose of only 20 mg IV. Echo ordered for AM. Code(s): I50.9 - HEART FAILURE, UNSPECIFIED (4) Pleural effusion due to CHF (congestive heart failure) Current Visit: Yes Status: Acute Onset Date: ~03/23/18 Assessment & Plan: Clinically this has improved after diuresis yesterday. Code(s): I50.9 - HEART FAILURE, UNSPECIFIED (5) Tobacco abuse disorder Current Visit: No Status: Chronic Code(s): Z72.0 - TOBACCO USE (6) Pneumonia Current Visit: Yes Status: Acute Onset Date: ~03/17/18 Qualifiers: Pneumonia type: due to unspecified organism Laterality: left Lung location: lower lobe of lung Qualified Code(s): J18.1 - Lobar pneumonia, unspecified organism Assessment & Plan: continue current treatment. Code(s): J18.9 - PNEUMONIA, UNSPECIFIED ORGANISM (7) Hypotension Current Visit: Yes Status: Acute Assessment & Plan: Currently stable; pt runs low normally per his family. Code(s): I95.9 - HYPOTENSION, UNSPECIFIED
[2018-03-24] MEDS: PROAMATINE 5 MG PO SCH ×3 (11:59→20:56)
--- NOTE | 2018-03-25 04:37 | PCM.DS ---
Discharge Summary Date of Admission: 03/17/18 21:45 Admitting Physician: JERAMIE WAY Primary Care Provider: SABINO TALBERT NUBIA Allergies Allergies No Known Drug Allergies Allergy (Verified 03/18/17 13:09) Hospital Summary - Hospital Course Hospital Course: patient was admitted with cough and chest pain, found to have left lower lobe pneumonia on chest ct. has been treated with iv steroids and antibiotics. required some lasix. no signs of volume overload today on discharge, has echo pending. he states he is feeling much better and requesting to go home, still on supplemental oxygen - Vitals & Intake/Output Vital Signs: Vital Signs Temperature 97.8 F 03/25/18 00:00 Pulse Rate 76 03/25/18 00:00 Respiratory Rate 21 03/25/18 00:00 Blood Pressure 94/54 03/25/18 00:00 O2 Sat by Pulse Oximetry 97 03/25/18 03:00 Oxygen-Last Documented O2 Percentage 2 Liters = 28% Intake & Output: Intake & Output 03/22/18 03/23/18 03/24/18 03/25/18 11:59 11:59 11:59 11:59 Intake Total 2859 2450 1348 Output Total 1324 8544 7135 1427 Balance 0431 852 -8933 -2498 Weight 56.4 kg 54.1 kg 53.6 kg - Lab Result Diagrams: 03/24/18 05:10 03/24/18 05:10 Lab Results-Last 24 Hrs: Lab Results-Last 24 Hours 03/24/18 03/24/18 Range/Units 05:10 05:10 WBC 16.8 H (4.0-10.5) K/mm3 RBC 3.74 L (4.1-5.6) M/mm3 Hgb 11.9 L (12.5-18.0) gm/dl Hct 36.9 L (42-50) % MCV 98.7 (78-100) fl MCH 31.8 (26-32) pg MCHC 32.2 (32-36) g/dl RDW 15.6 H (11.5-14.0) % Plt Count 283 (150-450) K/mm3 MPV 9.8 H (6-9.5) fl Segmented Neutrophils 78 H (36.-66.) % Lymphocytes (Manual) 18 L (24-44) % Monocytes (Manual) 4 (0.0-12.0) % Toxic Granulation 1+ Platelet Estimate NORMAL (NORMAL) RBC Morphology ABNORMAL Anisocytosis 1+ Sodium 134 L (137-145) mmol/L Potassium 4.4 (3.5-5.1) mmol/L Chloride 95 L (98-107) mmol/L Carbon Dioxide 35 H (22-30) mmol/L Anion Gap 8.6 (5-15) MEQ/L BUN 22 H (9-20) mg/dL Creatinine 0.51 L (0.66-1.25) mg/dL Estimated GFR > 60.0 ML/MIN Glucose 101 (74-106) mg/dL Calcium 8.5 (8.4-10.2) mg/dL Micro Results-Entire Visit: Microbiology 03/17/18 11:40 Blood Culture Gram Stain - Final Blood Not Reportable Blood Culture - Final NO GROWTH 03/17/18 11:30 Blood Culture Gram Stain - Final Blood Not Reportable Blood Culture - Final NO GROWTH - Radiology Exams Ordered Rad Exams-Entire Visit: Radiology Procedures Category Date Time Status CHEST 2 VIEWS (PA AND LAT) Stat Exams 03/23/18 08:41 Completed ECHO W/2D AND DOPPLER [US] Routine Exams 03/25/18 Ordered - Procedures and Test Procedures and Tests throughout Hospitalization: Therapy Orders & Screens 03/17/18 11:32 Respiratory Nebulizer STAT Comment: Diagnosis: Shortness of Breath 03/17/18 12:27 Respiratory Therapy Assessment DAILY Comment: Diagnosis: Shortness of Breath 03/17/18 14:11 Respiratory Nebulizer STAT Comment: Diagnosis: Shortness of Breath 03/17/18 14:53 Oxygen NASAL CANNULA 2 lpm Comment: chest pain Diagnosis: Shortness of Breath 03/17/18 16:02 Smoking Cessation Education ONCE Comment: Diagnosis: copd. Pneumonia Smoking Status: Current every day smoker How long have you smoked: 75 years Have you smoked in the past 12 months: Yes Approximately how many cigarettes per day: pack Do you dip or chew tobacco: No 03/17/18 19:00 Respiratory Therapy Assessment DAILY Comment: Diagnosis: copd. Pneumonia 03/17/18 19:30 EKG ASORD Comment: Diagnosis: Shortness of Breath 03/18/18 06:00 EKG REPEAT IN AM Comment: Diagnosis: Shortness of Breath 03/18/18 08:47 PT Eval & Treat (MD Order) Reason for Eval:: gen weakness; s/p remote hip surgery Diagnosis: copd. Pneumonia 03/19/18 05:00 EKG DAILY Comment: Diagnosis: copd. Pneumonia 03/19/18 07:57 EKG ONCE Comment: Diagnosis: HYPOTENSION, SEPSIS, PNEUMONIA 03/20/18 05:00 EKG ROUTINE Comment: Diagnosis: copd. Pneumonia 03/23/18 19:38 Flutter Therapy UD Comment: PRN Diagnosis: HYPOTENSION, SEPSIS, PNEUMONIA Discharge Exam General Appearance: no apparent distress, thin Neurologic Exam: alert, oriented x 3 Skin Exam: normal color, warm, dry Respiratory Exam: diminished breath sounds, prolonged expirations, No rhonchi, No wheezing Cardiovascular Exam: regular rate/rhythm, normal heart sounds Gastrointestinal/Abdomen Exam: soft, No tenderness, No mass Extremity Exam: normal inspection, normal range of motion Final Diagnosis/Problem List - Final Discharge Diagnosis/Problem (1) Pneumonia Current Visit: Yes Status: Acute Onset Date: ~03/17/18 Assessment & Plan: home on po levaquin for 5 more days (2) COPD with exacerbation Current Visit: Yes Status: Acute Onset Date: ~03/17/18 Assessment & Plan: continues nebs, steroid taper. will qualify for oxygen if unable to wean today. - Discharge Disposition: Home, Self-Care Condition: Stable Prescriptions: New Nebulizer Accessories [Aeroneb Go] 1 each UD #1 each Prednisone 20 mg [Deltasone 20 mg] 20 mg PO UD #18 tablet Albuterol/Ipratropium 3ml Neb* [DUONEB 0.5-3 MG/3 ml Neb] 3 ml IH Q4-6HPRN PRN #100 ampul.neb PRN Reason: Cough Levofloxacin [Levaquin] 500 mg PO DAILY #5 tablet Continue Meloxicam 7.5 mg [Mobic 7.5 MG] 7.5 mg PO DAILY Docusate Sodium 100 mg [Colace 100 MG] 100 mg PO BID #60 capsule Acetaminophen 325 mg [Tylenol 325 mg] 650 mg PO Q6H PRN PRN #60 tablet PRN Reason: Pain And/Or Fever Alendronate Sodium 70 mg [Fosamax 70 MG] 70 mg PO WEEKLY Albuterol Sulfate [Proventil Hfa] 2 puffs IH Q4-6HPRN PRN #2 hfa.aer.ad PRN Reason: Shortness Of Breath Budesonide/Formoterol Fumarate [Symbicort 160-4.5 Mcg Inhaler] 1 puff IH DAILY Additional Instructions: [facility] WILL FOLLOW UPON DISCHARGE HOME Follow up with: SABINO TALBERT MD [Primary Care Provider] - 1 Week
[2018-03-25] MEDS: solu-MEDROL 40 MG IV SCH (05:24)
[2018-03-25] MEDS: DUONEB 0.5-3 MG/3 ml Neb IH SCH ×2 (07:46→11:32)
[2018-03-25] MEDS: Advair Hfa 230/21 Mcg COMMON CANISTER IH SCH (07:46)
[2018-03-25] MEDS: ENOXAPARIN SODIUM SQ SCH (10:31)
[2018-03-25] MEDS: Levofloxacin 500MG/100ML D5W 500 MG/100 ML BAG IV SCH (10:31)
[2018-03-25] MEDS: Mobic 7.5 MG PO SCH (10:32)
[2018-03-25] MEDS: PROAMATINE 5 MG PO SCH (10:32)
[2018-03-25] MEDS: Colace 100 MG PO SCH (10:32)
[2018-03-25 13:00] VITALS: BP 80/52; PULSE 93; O2SAT 92
== END 2018-03-25 12:26 | disposition swing bed (61) | DRG 193 ==
LOC: ED 11:02 → MED SURG 15:11 → OBSVTOIN 21:45 → ICU 21:46 → MED SURG 03-21 11:55
PROVIDERS: ADMIT Family Medicine; ATTEND Family Medicine
DX: J18.9 Pneumonia, unspecified organism (principal); A41.9 Sepsis, unspecified organism; J44.1 Chronic obstructive pulmonary disease with (acute) exacerbation; I50.9 Heart failure, unspecified; F41.9 Anxiety disorder, unspecified; F32.9 Major depressive disorder, single episode, unspecified; E11.9 Type 2 diabetes mellitus without complications; Z99.81 Dependence on supplemental oxygen; M25.552 Pain in left hip; M19.90 Unspecified osteoarthritis, unspecified site; Z72.0 Tobacco use; I10 Essential (primary) hypertension; Z79.899 Other long term (current) drug therapy
CPT/HCPCS: 36000; 36415; 71045; 71046; 71260; 73630; 76705; 80048; 80053; 80061; 83605; 83721; 83735; 83880; 84484; 85025; 85379; 85610; 87040; 93005; 93041; 93268; 93306; 94640; 94667; 94760; 96360; 96365; 96374; 97161; 97530; 99285; Q9967; J1650; J1940; J1956; J2920; J2930; A9270-GY

== ENCOUNTER 2018-03-25 11:06 | Inpatient (IN) | payer MEDICARE, OTHER ==
[2018-03-25] MEDS ORDERED: TYLENOL 325 MG PO PRN (12:31)
[2018-03-25] MEDS ORDERED: Aplisol ID ONE (12:31)
[2018-03-25] MEDS ORDERED: PROVENTIL COMMON CANISTER IH PRN (13:15)
[2018-03-25] MEDS: DUONEB 0.5-3 MG/3 ml Neb IH SCH ×3 (15:10→23:35)
[2018-03-25] MEDS: Advair Hfa 230/21 Mcg COMMON CANISTER IH SCH (18:37)
[2018-03-25] MEDS: Colace 100 MG PO SCH (21:24)
[2018-03-26] MEDS ORDERED: MAALOX ES 30 ML UNIT DOSE PO PRN (01:05)
[2018-03-26] MEDS: DUONEB 0.5-3 MG/3 ml Neb IH SCH ×6 (03:22→22:41)
[2018-03-26] MEDS: Advair Hfa 230/21 Mcg COMMON CANISTER IH SCH ×2 (06:44→18:43)
[2018-03-26] MEDS: Mobic 7.5 MG PO SCH (09:37)
[2018-03-26] MEDS: DELTASONE 20 MG PO SCH (09:37)
[2018-03-26] MEDS: Levofloxacin 500 MG Tablet PO SCH (09:37)
[2018-03-26] MEDS: Colace 100 MG PO SCH ×2 (09:37→21:35)
[2018-03-27] MEDS: DUONEB 0.5-3 MG/3 ml Neb IH SCH ×3 (02:56→14:36)
[2018-03-27 07:32] VITALS: BP 131/66
[2018-03-27] MEDS: Advair Hfa 230/21 Mcg COMMON CANISTER IH SCH (07:50)
[2018-03-27 07:56] VITALS: PULSE 68
--- NOTE | 2018-03-27 08:53 | PCM.DS ---
Discharge Summary Date of Admission: 03/25/18 12:27 Admitting Physician: SABINO TALBERT Primary Care Provider: SABINO TALBERT Allergies Allergies No Known Drug Allergies Allergy (Verified 03/18/17 13:09) Hospital Summary - Hospital Course Hospital Course: patient was admitted and treated for copd exacerbation. has improved and is able to transfer with assistance at this time which is back to his baseline after swingbed stay. he denies shortness of breath and states he is feeling much better at the time of discharge. - Vitals & Intake/Output Vital Signs: Vital Signs Temperature 97.8 F 03/27/18 07:31 Pulse Rate 68 03/27/18 07:51 Respiratory Rate 20 03/27/18 07:51 Blood Pressure 131/66 03/27/18 07:31 O2 Sat by Pulse Oximetry 95 03/27/18 07:51 Intake & Output: Intake & Output 03/24/18 03/25/18 03/26/18 03/27/18 11:59 11:59 11:59 11:59 Intake Total 720 60 Output Total 1425 1800 Balance -705 -1740 Weight 54.8 kg - Procedures and Test Procedures and Tests throughout Hospitalization: Therapy Orders & Screens 03/25/18 12:31 OT Eval and Treat (MD Order) ROUTINE Comment: Consulting Provider: Physician Instructions: Reason For Exam: Evaluate: Yes Treat: Yes Reason for Evaluation: DECONDITIONING R/T SEPSIS/PNEUMONIA Diagnosis: DECONDITIONING R/T SEPSIS/PNEUMONIA PT Eval & Treat (MD Order) ROUTINE Reason for Eval:: MUSCLE WEAKNESS S/P SEPSIS/PNEUMONIA Diagnosis: DECONDITIONING R/T SEPSIS/PNEUMONIA PT Eval & Treat (MD Order) ROUTINE Reason for Eval:: gen weakness; s/p remote hip surgery Diagnosis: copd. Pneumonia Oxygen NASAL CANNULA 2 lpm Comment: chest pain Diagnosis: Shortness of Breath Respiratory Therapy Assessment DAILY Comment: Diagnosis: copd. Pneumonia Discharge Exam General Appearance: no apparent distress, alert, thin Neurologic Exam: alert, oriented x 3 Skin Exam: normal color, warm, dry Respiratory Exam: diminished breath sounds, prolonged expirations Cardiovascular Exam: regular rate/rhythm, normal heart sounds Gastrointestinal/Abdomen Exam: soft, No tenderness, No mass Extremity Exam: normal inspection, normal range of motion Final Diagnosis/Problem List - Final Discharge Diagnosis/Problem (1) COPD with exacerbation Current Visit: Yes Status: Acute Onset Date: ~03/17/18 (2) Pneumonia Current Visit: Yes Status: Acute Onset Date: ~03/17/18 (3) COPD (chronic obstructive pulmonary disease) Current Visit: Yes Status: Chronic (4) Tobacco abuse disorder Current Visit: Yes Status: Chronic - Discharge Disposition: Home, Self-Care Condition: Stable Prescriptions: Continue Meloxicam 7.5 mg [Mobic 7.5 MG] 7.5 mg PO DAILY Docusate Sodium 100 mg [Colace 100 MG] 100 mg PO BID #60 capsule Acetaminophen 325 mg [Tylenol 325 mg] 650 mg PO Q6H PRN PRN #60 tablet PRN Reason: Pain And/Or Fever Alendronate Sodium 70 mg [Fosamax 70 MG] 70 mg PO WEEKLY Albuterol Sulfate [Proventil Hfa] 2 puffs IH Q4-6HPRN PRN #2 hfa.aer.ad PRN Reason: Shortness Of Breath Budesonide/Formoterol Fumarate [Symbicort 160-4.5 Mcg Inhaler] 1 puff IH DAILY Nebulizer Accessories [Aeroneb Go] 1 each MC UD #1 each Prednisone 20 mg [Deltasone 20 mg] 20 mg PO UD #18 tablet Albuterol/Ipratropium 3ml Neb* [DUONEB 0.5-3 MG/3 ml Neb] 3 ml IH Q4-6HPRN PRN #100 ampul.neb PRN Reason: Cough Levofloxacin [Levaquin] 500 mg PO DAILY #5 tablet Instructions: Generalized Weakness (DC) Follow up with: SABINO TALBERT MD [Primary Care Provider] - 04/01/18 11:15 am Forms: Discharge Instructions
[2018-03-27] MEDS: Colace 100 MG PO SCH (09:50)
[2018-03-27] MEDS: Levofloxacin 500 MG Tablet PO SCH (09:50)
[2018-03-27] MEDS: DELTASONE 20 MG PO SCH (09:50)
[2018-03-27] MEDS: Mobic 7.5 MG PO SCH (09:50)
[2018-03-27 12:23] VITALS: O2SAT 96
[2018-03-28] MEDS ORDERED: DELTASONE 20 MG PO SCH (10:00)
[2018-03-31] MEDS ORDERED: DELTASONE 20 MG PO SCH (10:00)
[2018-04-01] MEDS ORDERED: Fosamax 70 MG PO SCH (06:00)
== END 2018-03-27 14:40 | disposition home health service (06) | DRG 190 ==
LOC: UNDOADMIN 12:27 → MED SURG 12:27
PROVIDERS: ADMIT Family Medicine; ATTEND Family Medicine
DX: J44.1 Chronic obstructive pulmonary disease with (acute) exacerbation (principal); J18.9 Pneumonia, unspecified organism; F10.10 Alcohol abuse, uncomplicated; M19.90 Unspecified osteoarthritis, unspecified site; Z79.899 Other long term (current) drug therapy
CPT/HCPCS: 94640; 94760; A9270-GY

== ENCOUNTER 2018-11-04 20:57 | Inpatient (IN) | payer MEDICARE, OTHER ==
[2018-11-04] MEDS ORDERED: DUONEB 0.5-3 MG/3 ml Neb IH ONE ×2 (21:32→21:48)
--- NOTE | 2018-11-04 21:38 | ERPHSYRPT ---
- History of Present Illness Time Seen by Provider: 11/04/18 21:28 Source: patient Exam Limitations: no limitations Patient Subjective Stated Complaint: SOB Triage Nursing Assessment: Patient brought into ED via w/c at this time. Patient assisted to bed with assist of 2. Patient A+O X 3. Patient complains of SOB for two weeks but as gotten worse today. Patient was seen last week by Dr. Pat and is not any better. Patient's lungs diminished and coarse. Patient respirations 25 with retraction. Patient denies pain or discomfort. Physician History: 88-year-old white male with history of macular degeneration, COPD, emphysema brought by his family with complaint of shortness of breath for 2 weeks coughing yellow sputum he states this is worse today he denies any chest pain no nausea no vomiting no fevers. Past medical history includes macular degeneration, COPD, emphysema old chart shows diabetes type 2 family and patient disputes this, patient does have a history of osteoarthritis and arthritis in his back. Past medical history includes orthopedic surgery, testicle removed 6 years ago and left lower extremity fracture repair. Timing/Duration: week(s) (symptoms for 2 weeks worse today) Activities at Onset: none Severity of Dyspnea-Max: moderate Possible Cause: occasional episodes Modifying Factors: Improves With: activity Associated Symptoms: constant, cough, wheezing, No intermittent, No anxiety, No chest pain/discomfort, No edema, No fever, No insomnia, No loss of appetite, No lightheadedness, No weakness, No ankle swelling, No chills, No hemoptysis, No calf pain, No dizziness, No heaviness, No heart racing, No lightheadedness, No leg swelling, No muscle spasms feet, No muscle spasms hands, No painful breathing, No productive cough, No sweating, No tightness, No tingling face International travel in last 2 weeks: No Allergies/Adverse Reactions: No Known Drug Allergies Allergy (Verified 11/04/18 21:01) Home Medications: Meloxicam 7.5 mg [Mobic 7.5 MG] 7.5 mg PO DAILY 12/23/16 [History] Alendronate Sodium 70 mg [Fosamax 70 MG] 70 mg PO WEEKLY 03/18/17 [History ] Budesonide/Formoterol Fumarate [Symbicort 160-4.5 Mcg Inhaler] 1 puff IH BID 03/24 [History] Acetaminophen [Tylenol] 500 mg PO BID 11/04/18 [History] Vit A/Vit C/Vit E/Zinc/Copper [Preservision Areds Softgel] 1 tab PO DAILY [History] Hx Tetanus, Diphtheria Vaccination/Date Given: No Hx Influenza Vaccination/Date Given: Yes Hx Pneumococcal Vaccination/Date Given: Yes Immunizations Up to Date: Yes - Review of Systems Constitutional: No Fever, No Chills Eyes: No Symptoms Ears, Nose, & Throat: No Symptoms Respiratory: Cough, Dyspnea, Wheezing Cardiac: No Chest Pain, No Edema, No Syncope Abdominal/Gastrointestinal: No Abdominal Pain, No Nausea, No Vomiting, No Diarrhea Genitourinary Symptoms: No Dysuria Musculoskeletal: No Back Pain, No Neck Pain Skin: No Rash Neurological: No Dizziness, No Focal Weakness, No Sensory Changes Psychological: No Symptoms Endocrine: No Symptoms All Other Systems: Reviewed and Negative - Past Medical History Pertinent Past Medical History: Yes Neurological History: No Pertinent History ENT History: Macular Degeneration Cardiac History: No Pertinent History Respiratory History: COPD, Emphysema, Pneumonia Endocrine Medical History: No Pertinent History Musculoskeletal History: Osteoarthritis GI Medical History: No Pertinent History History: No Pertinent History Psycho-Social History: No Pertinent History Male Reproductive Disorders: No Pertinent History Other Medical History: Arthritis in back - Past Surgical History Past Surgical History: Yes Neuro Surgical History: No Pertinent History Cardiac: No Pertinent History Respiratory: No Pertinent History Gastrointestinal: No Pertinent History Genitourinary: Other Musculoskeletal: Orthopedic Surgery Male Surgical History: Testicular Surgery Other Surgical History: states had testicle removed 60 years ago LLL FX repair. - Social History Smoking Status: Current every day smoker How long have you smoked: 75 years Exposure to second hand smoke: Yes Alcohol Use: None Drug Use: none Patient Lives Alone: No Significant Family History: no pertinent family hx - Nursing Vital Signs Nursing Vital Signs: Initial Vital Signs Temperature 98.2 F 11/04/18 21:02 Pulse Rate 100 H 11/04/18 21:02 Respiratory Rate 25 H 11/04/18 21:02 Blood Pressure 159/84 11/04/18 21:02 O2 Sat by Pulse Oximetry 96 11/04/18 21:02 Pain Scale Pain Intensity 0 - Physical Exam General Appearance: no apparent distress, alert Eye Exam: PERRL/EOMI Ears, Nose, Throat Exam: hearing grossly normal Neck Exam: normal inspection, supple Respiratory Exam: airway intact, rhonchi (lateral rhonchi), wheezing Cardiovascular/Chest Exam: normal heart sounds, regular rate/rhythm Abdominal/Gastrointestinal Exam: soft, No tenderness, No distention, No mass Extremity Exam: non-tender, normal range of motion, normal inspection, no calf tenderness, no pedal edema Peripheral Pulses Exam: dorsalis-pedis (R): 2+, dorsalis-pedis (L): 2+ Neurologic Exam: alert, oriented x 3, cooperative, wallpaper hanger II-XII nml as tested, sensation nml, No motor deficits Skin Exam: normal color, warm, No dry SpO2 Interpretation: normal (98%) SpO2: 98 - Course Nursing assessment & vital signs reviewed: Yes EKG Interpreted by Me: RATE (101 bpm), Sinus Tach, NORMAL AXIS, Other (EKG: Sinus tachycardia with PVC, 101 beats per minute, normal axis, no acute ST or T wave changes noted compared to March 20, 2018) - Radiology Exams Chest X-ray Interpretation: Interpreted by me (chronic copd) Ordered Tests: Active Orders 24 hr Category Date Time Status Decatizer STAT Care 11/04/18 21:32 Active EKG-ER Only STAT Care 11/04/18 21:32 Active IV Insertion STAT Care 11/04/18 21:32 Active Oxygen-ED Only Nasal Cannula 2 lpm Care 11/04/18 21:32 Active CHEST 1 VIEW (PORTABLE) Stat Exams 11/04/18 21:32 Taken BLOOD CULTURE Stat Lab 11/04/18 22:05 Received CBC W DIFF Stat Lab 11/04/18 21:20 Completed CMP Stat Lab 11/04/18 21:32 Completed CULTURE,SPUTUM Stat Lab 11/04/18 21:32 Uncollected D-DIMER QUANTITATION Stat Lab 11/04/18 21:20 Completed Lactic Acid Stat Lab 11/04/18 21:32 Completed Manual Differential NC Stat Lab 11/04/18 21:20 Completed NT PRO BNP Stat Lab 11/04/18 21:32 Completed PROTIME WITH INR Stat Lab 11/04/18 21:20 Completed PTT Stat Lab 11/04/18 21:20 Completed TROPONIN Q3H Lab 11/04/18 21:45 Completed TROPONIN Q3H Lab 11/05/18 00:45 Ordered TROPONIN Q3H Lab 11/05/18 03:45 Ordered TROPONIN Q3H Lab 11/05/18 06:45 Ordered TROPONIN Q3H Lab 11/05/18 09:45 Ordered VENOUS BLOOD GAS Stat Lab 11/04/18 21:32 Completed Respiratory Therapy Assessment DAILY RT 11/04/18 21:50 Completed Medication Summary Discontinued Medications Generic Name Dose Route Start Last Admin Trade Name Teresa PRN Reason Stop Dose Admin Albuterol/Ipratropium 3 ml 11/04/18 21:32 11/04/18 21:52 Duoneb 0.5-3 Mg/3 Ml Neb IH 11/04/18 21:33 3 ml STAT ONE Administration Albuterol/Ipratropium Confirm 11/04/18 21:48 Duoneb 0.5-3 Mg/3 Ml Neb Administered 11/04/18 21:49 Dose 3 ml IH .STK-MED ONE Ceftriaxone Sodium/Dextrose 1 g in 50 mls @ 100 mls/hr 11/04/18 22:00 Rocephin 1 Gm-D5w 50 Ml Bag IV 11/04/18 22:29 STAT STA Ceftriaxone Sodium/Dextrose Confirm 11/04/18 22:27 Rocephin 1 Gm-D5w 50 Ml Bag Administered 11/04/18 22:28 Dose 1 g in 50 mls @ ud IV .STK-MED ONE Methylprednisolone Sodium Succinate 125 mg 11/04/18 21:52 11/04/18 21:55 Solu-Medrol 125 Mg IV 11/04/18 21:53 125 mg STAT ONE Administration Methylprednisolone Sodium Succinate Confirm 11/04/18 21:53 Solu-Medrol 125 Mg Administered 11/04/18 21:54 Dose 125 mg .ROUTE .STK-MED ONE Lab/Rad Data: Laboratory Result Diagrams 11/04/18 21:20 11/04/18 21:32 Laboratory Results 11/04/18 11/04/18 11/04/18 Range/Units 21:45 21:32 21:32 WBC (4.0-10.5) K/mm3 RBC (4.1-5.6) M/mm3 Hgb (12.5-18.0) gm/dl Hct (42-50) % MCV (78-100) fl MCH (26-32) pg MCHC (32-36) g/dl RDW (11.5-14.0) % Plt Count (150-450) K/mm3 MPV (6-9.5) fl PT (8.83-12.87) SECONDS INR (0.8-3.0) APTT (24.1-36.1) SECONDS D-Dimer (215-500) ng/mL pO2/FiO2 Ratio 28.0 % VBG pH 7.40 (7.32-7.42) VBG pCO2 at Pat Temp 60 H (42-55) mm/Hg VBG pO2 at Pat Temp 55 H (25-40) mm/Hg VBG HCO3 37.2 H* (22-28) meq/L VBG O2 Sat (Idania) 93.2 L (95-100) VBG Base Excess 10.0 H (-2.0-2.0) VBG Hemoglobin 14.0 VBG Carboxyhemoglobin 8.2 H* (0.0-6.9) % T HGB POC Potassium 4.6 (3.5-5.1) Sodium 136 L (137-145) mmol/L Potassium 4.5 (3.5-5.1) mmol/L Chloride 98 (98-107) mmol/L Carbon Dioxide 33 H (22-30) mmol/L Anion Gap 10.2 (5-15) MEQ/L BUN 23 H (9-20) mg/dL Creatinine 0.54 L (0.66-1.25) mg/dL Estimated GFR > 60.0 ML/MIN Glucose 102 (74-106) mg/dL Lactic Acid 1.7 (0.4-2.0) Calcium 8.9 (8.4-10.2) mg/dL Total Bilirubin 0.60 (0.2-1.3) mg/dL AST 72 H (17-59) U/L ALT 69 H (0-50) U/L Alkaline Phosphatase 156 H (38-126) U/L Troponin I < 0.012 (0.000-0.034) ng/mL NT-Pro-B Natriuret Pep 638 (0-1800) pg/mL Serum Total Protein 6.2 L (6.3-8.2) g/dL Albumin 3.5 (3.5-5.0) g/dL 11/04/18 11/04/18 Range/Units 21:20 21:20 WBC 23.2 H (4.0-10.5) K/mm3 RBC 4.28 (4.1-5.6) M/mm3 Hgb 13.5 (12.5-18.0) gm/dl Hct 41.9 L (42-50) % MCV 97.9 (78-100) fl MCH 31.5 (26-32) pg MCHC 32.2 (32-36) g/dl RDW 15.2 H (11.5-14.0) % Plt Count 353 (150-450) K/mm3 MPV 9.6 H (6-9.5) fl PT 11.5 (8.83-12.87) SECONDS INR 1.02 (0.8-3.0) APTT 32.4 (24.1-36.1) SECONDS D-Dimer 468 (215-500) ng/mL pO2/FiO2 Ratio % VBG pH (7.32-7.42) VBG pCO2 at Pat Temp (42-55) mm/Hg VBG pO2 at Pat Temp (25-40) mm/Hg VBG HCO3 (22-28) meq/L VBG O2 Sat (Idania) (95-100) VBG Base Excess (-2.0-2.0) VBG Hemoglobin VBG Carboxyhemoglobin (0.0-6.9) % T HGB POC Potassium (3.5-5.1) Sodium (137-145) mmol/L Potassium (3.5-5.1) mmol/L Chloride (98-107) mmol/L Carbon Dioxide (22-30) mmol/L Anion Gap (5-15) MEQ/L BUN (9-20) mg/dL Creatinine (0.66-1.25) mg/dL Estimated GFR ML/MIN Glucose (74-106) mg/dL Lactic Acid (0.4-2.0) Calcium (8.4-10.2) mg/dL Total Bilirubin (0.2-1.3) mg/dL AST (17-59) U/L ALT (0-50) U/L Alkaline Phosphatase (38-126) U/L Troponin I (0.000-0.034) ng/mL NT-Pro-B Natriuret Pep (0-1800) pg/mL Serum Total Protein (6.3-8.2) g/dL Albumin (3.5-5.0) g/dL - Progress Progress: improved (pain they were wants) Air Movement: fair Progress Note: 11/04/18 22:09 The patient given Solu-Medrol 125 mg Rocephin 1 g IV is given DuoNeb treatment. Awaiting lactate level this has been ordered as well as blood cultures. 11/04/18 22:29 Lactate level is 1.7 patient's venous gas show a pH of 7.4 PCO2 of 60 Chest x-ray chronic COPD mild diffuse increased interstitial markings . 11/04/18 22:33 Patient's EKG sinus tachycardia with PVC normal axis no acute ST or T wave changes patient's chemistry sodium 136 potassium 4.5 chloride 98 bicarbonate 33 BUN 23 creatinine 0.54 glucose 102 CBC white blood cell is elevated at 23.2 hemoglobin 13.5 hematocrit 41.5 platelets 333 Patient is satting 96% on 2 L of oxygen Troponin was normal at less than 0.012 BNP 638 Patient is given Solu-Medrol 125 IV duo neb treatment he is feeling better but still has wheezes bilaterally. I've already ordered blood cultures and sputum followed by Rocephin from this patient I discussed the case with Dr. burk. Will place patient on observation, telemetry. Diagnosis shortness of breath, COPD with exacerbation, leukocytosis. Will continue Rocephin, IV Solu-Medrol, duo neb treatments and begin Zithromax. - Departure Departure Disposition: Observation Clinical Impression: Shortness of breath, COPD with exacerbation Leukocytosis Qualifiers: Leukocytosis type: unspecified Qualified Code(s): D72.829 - Elevated white blood cell count, unspecified Condition: Fair Critical Care Time: No Referrals: SABINO PAT MD [Primary Care Provider] - Instructions: Chronic Obstructive Pulmonary Disease
[2018-11-04 21:47] LABS: Hematocrit 41.9 % (42-50); Hemoglobin 13.5 gm/dl (12.5-18.0); INR 1.02 (0.8-3.0); Mean Cell Volume 97.9 fl (78-100); Mean Corpuscular Hemoglobin 31.5 pg (26-32); Mean Corpuscular Hgb Concent. 32.2 g/dl (32-36); Mean Platelet Volume 9.6 fl (6-9.5); PROTIME 11.5 SECONDS (8.83-12.87); Platelet Count 353 K/mm3 (150-450); Red Blood Count 4.28 M/mm3 (4.1-5.6); Red Cell Distribution Width 15.2 % (11.5-14.0); White Blood Count 23.2 K/mm3 (4.0-10.5)
[2018-11-04 21:50] LABS: PTT 32.4 SECONDS (24.1-36.1)
[2018-11-04] MEDS ORDERED: solu-MEDROL 125 MG IV ONE (21:52)
[2018-11-04] MEDS ORDERED: solu-MEDROL 125 MG ONE (21:53)
[2018-11-04 22:00] LABS: ALBUMIN 3.5 g/dL (3.5-5.0); ALKALINE PHOSPHATASE 156 U/L (38-126); ANION GAP 10.2 MEQ/L (5-15); BLOOD UREA NITROGEN 23 mg/dL (9-20); CHLORIDE 98 mmol/L (98-107); Calcium 8.9 mg/dL (8.4-10.2); Carbon Dioxide 33 mmol/L (22-30); Creatinine 1 0.54 mg/dL (0.66-1.25); Glucose 102 mg/dL (74-106); NT PRO BNP 638 pg/mL (0-1800); Potassium 4.5 mmol/L (3.5-5.1); SGOT/AST 72 U/L (17-59); SGPT/ALT 69 U/L (0-50); SODIUM 136 mmol/L (137-145); Total Protein 6.2 g/dL (6.3-8.2)
[2018-11-04] MEDS ORDERED: ROCEPHIN 1 Gm-D5w 50 ml Bag** 1 G/50 ML IVPB IV STA (22:00)
[2018-11-04 22:18] LABS: Lactic Acid 1.7 (0.4-2.0); VBG CARBOXYHEMOGLOBIN 8.2 % T HGB (0.0-6.9); VBG HCO3- 37.2 meq/L (22-28); VBG O2 SATURATION 93.2 (95-100); VBG POTASSIUM 4.6 (3.5-5.1); VBG pH 7.4 (7.32-7.42)
[2018-11-04] MEDS ORDERED: ROCEPHIN 1 Gm-D5w 50 ml Bag** 1 G/50 ML IVPB IV ONE (22:27)
[2018-11-04] MEDS ORDERED: DUONEB 0.5-3 MG/3 ml Neb IH PRN (23:07)
[2018-11-04 23:25] LABS: Lymphocytes 13 % (24-44); Monocyte 1 % (0.0-12.0); Neutrophils 86 % (36.-66.); Total Cells Counted 100
[2018-11-04 23:26] LABS: Platelet Estimate NORMAL (NORMAL); Poikilocytosis 1+
[2018-11-04 23:27] LABS: ANISOCYTOSIS 1+; Hypochromia 1+
[2018-11-05 03:51] LABS: Hemoglobin 11.9 gm/dl (12.5-18.0); Mean Cell Volume 98.7 fl (78-100); Mean Corpuscular Hemoglobin 31.7 pg (26-32); Mean Corpuscular Hgb Concent. 32.2 g/dl (32-36); Mean Platelet Volume 9.2 fl (6-9.5); Platelet Count 291 K/mm3 (150-450); Red Blood Count 3.75 M/mm3 (4.1-5.6); White Blood Count 14.4 K/mm3 (4.0-10.5)
[2018-11-05 04:02] LABS: ALBUMIN 2.8 g/dL (3.5-5.0); ALKALINE PHOSPHATASE 135 U/L (38-126); ANION GAP 7.8 MEQ/L (5-15); BLOOD UREA NITROGEN 23 mg/dL (9-20); CHLORIDE 98 mmol/L (98-107); Calcium 8.4 mg/dL (8.4-10.2); Carbon Dioxide 32 mmol/L (22-30); Glucose 131 mg/dL (74-106); Potassium 4.7 mmol/L (3.5-5.1); SGOT/AST 33 U/L (17-59); SGPT/ALT 56 U/L (0-50); SODIUM 134 mmol/L (137-145); Total Protein 5.2 g/dL (6.3-8.2)
[2018-11-05] MEDS: solu-MEDROL 125 MG IV SCH ×5 (04:24→23:59)
[2018-11-05 04:26] LABS: Basophil 1 % (0.0-1.0); Lymphocytes 5 % (24-44); Neutrophils 94 % (36.-66.); Total Cells Counted 100
[2018-11-05 04:27] LABS: ANISOCYTOSIS 1+; Platelet Estimate NORMAL (NORMAL); Poikilocytosis 1+; Toxic Granulation 1+
[2018-11-05] MEDS ORDERED: TYLENOL 325 MG PO PRN (07:20)
[2018-11-05] MEDS: DUONEB 0.5-3 MG/3 ml Neb IH SCH ×5 (07:42→23:09)
--- NOTE | 2018-11-05 08:46 | XRAY ---
Indication: Short of breath. Comparison: March 23, 2018. Portable chest remains hyperinflated with mediastinal/hilar calcified nodes. No focal infiltrate, consolidation, or large effusion. Heart is not enlarged. Bony thorax intact again with mild osteopenia and degenerative changes. Impression: Nonacute hyperinflated chest with chronic features..
[2018-11-05] MEDS ORDERED: Ventolin Hfa MDI IH PRN (08:57)
--- NOTE | 2018-11-05 08:58 | HP ---
HISTORY OF PRESENT ILLNESS: This is an 88 year-old patient of Dr. Pat who presented to the emergency department with his family. He reports he has been having some trouble with his chronic obstructive pulmonary disease and breathing for the past few weeks. He had been on some steroids but it was getting worse especially the past couple of days. He has had a little bit of a cough mostly nonproductive but does produce a little bit of yellow sputum. He reports he does not wear oxygen at home. He continues to smoke at home. He reports he has smoked for 75 years and was smoking 1 packs per day but he is down to one-half pack per day now. He reports the shortness of breath is better since coming into the hospital and receiving IV antibiotics, steroids and breathing treatments. REVIEW OF SYSTEMS: He reports some constipation for which he takes qyel-cby-vsddoyw stool softeners for. No abdominal pain. No chest pain. No nausea or vomiting. He reports he has a good appetite. He reports that at home he usually is in his chair most of the time and only gets up to go to the bedside commode or the refrigerator that is near him. He lives alone but his daughter checks on him and brings him meals. He reports he has had some weight loss and they are unsure why. MEDICATIONS: Please see the home medication reconciliation list. ALLERGIES: NKDA. PAST MEDICAL HISTORY: Chronic obstructive pulmonary disease. He reports he has sores on his bottom. Macular degeneration. PAST SURGICAL HISTORY: He had a testicle removed and vasectomy. SOCIAL HISTORY: He lives alone. Tobacco use as above. No alcohol use. FAMILY HISTORY: His mother when she was 83 from a stroke. His father from Hodgkin's disease. PHYSICAL EXAMINATION: VITAL SIGNS: Temperature current 98.4F, temperature max 98.5F, heart rate 67 to 111 currently 71, respiratory rate 16 to 24, blood pressure 90 to 170 over 58 to 80 currently 170/80, weight 49.8 kg. Oxygen saturation 94 to 99% on 2 liters nasal cannula. GENERAL: The patient is a pleasant talkative man lying in bed in no acute distress. He is thin, cachectic. CVS: His heart has a regular rate and rhythm. No murmurs, gallops or rubs. CHEST: He has a wet sounding cough with rhonchi bilaterally. No tachypnea. No retractions. No crackles. ABDOMEN: Soft, nontender, nondistended with normal bowel sounds. EXTREMITIES: He has swelling of his feet that stops at his ankles bilaterally. No clubbing or cyanosis. SKIN: Warm, dry and intact. LABORATORY DATA AND TESTS: White blood cell count 23,200 on admission and down to 14,400. Hemoglobin 11.9 this a.m. Sodium 134, creatinine 0.5, alkaline phosphatase 135, albumin 2.8. He had a chest x-ray. There is no formal reading from the radiologist on this yet. ASSESSMENT AND PLAN: 1) CHRONIC OBSTRUCTIVE PULMONARY DISEASE EXACERBATION: Will continue with IV steroids, ceftriaxone and azithromycin, breathing treatments as needed and oxygen as needed. Will ask for discharge planning to evaluate him and check daily labs. 2) TOBACCO ABUSE: Will start a nicotine patch. 3) POOR MOBILITY: Again, will ask discharge planning to talk with him and his family about needs they may have at home. 4) WEIGHT LOSS: Etiology of this is unclear at this time. Will try to review his outpatient record to see over what time frame he has had the weight loss. 5) DEEP VENOUS THROMBOSIS PROPHYLAXIS: Will start DANIEL walker.
[2018-11-05] MEDS ORDERED: PROVENTIL COMMON CANISTER IH PRN (08:59)
[2018-11-05] MEDS ORDERED: MEDICATION INTERVENTION MC SCH (09:15)
[2018-11-05] MEDS: Zithromax 500 MG/ 250 ML NaCl Premix 500 MG/250 ML IVPB IV SCH (09:54)
[2018-11-05] MEDS ORDERED: VIT A PO SCH (10:00)
[2018-11-05] MEDS ORDERED: ZINC PO SCH (10:00)
[2018-11-05] MEDS ORDERED: VIT E PO SCH (10:00)
[2018-11-05] MEDS ORDERED: VIT C PO SCH (10:00)
[2018-11-05] MEDS: Ocuvite Tablet PO SCH (10:00)
[2018-11-05] MEDS ORDERED: COPPER PO SCH (10:00)
[2018-11-05] MEDS ORDERED: NON-FORMULARY ITEM (Budesonide/Formoterol Fumarate [Symbicort 160-4.5 Mcg Inhaler] 1 PUFF) IH SCH (10:00)
[2018-11-05] MEDS: NICODERM CQ 14 MG TOP SCH (10:00)
[2018-11-05] MEDS: Mobic 7.5 MG PO SCH (10:00)
[2018-11-05] MEDS: ROCEPHIN 1 Gm-D5w 50 ml Bag** 1 G/50 ML IVPB IV SCH (21:35)
[2018-11-06] MEDS: DUONEB 0.5-3 MG/3 ml Neb IH SCH ×6 (03:04→22:56)
[2018-11-06] MEDS: solu-MEDROL 125 MG IV SCH ×3 (05:13→21:23)
[2018-11-06 05:43] LABS: Hematocrit 34.2 % (42-50); Hemoglobin 10.9 gm/dl (12.5-18.0); Mean Cell Volume 99.7 fl (78-100); Mean Corpuscular Hgb Concent. 31.9 g/dl (32-36); Mean Platelet Volume 9.6 fl (6-9.5); Platelet Count 292 K/mm3 (150-450); Red Blood Count 3.43 M/mm3 (4.1-5.6); White Blood Count 20.9 K/mm3 (4.0-10.5)
[2018-11-06 05:50] LABS: Mean Corpuscular Hemoglobin 31.7 pg (26-32)
[2018-11-06 06:07] LABS: ANION GAP 7.6 MEQ/L (5-15); BLOOD UREA NITROGEN 31 mg/dL (9-20); CHLORIDE 99 mmol/L (98-107); Calcium 8.5 mg/dL (8.4-10.2); Carbon Dioxide 35 mmol/L (22-30); Creatinine 1 0.57 mg/dL (0.66-1.25); Glucose 140 mg/dL (74-106); Potassium 4.4 mmol/L (3.5-5.1); SODIUM 137 mmol/L (137-145)
[2018-11-06 06:15] LABS: BAND 2 % (0.0-2.0); Lymphocytes 1 % (24-44); Neutrophils 97 % (36.-66.); Platelet Estimate NORMAL (NORMAL); Total Cells Counted 100
--- NOTE | 2018-11-06 08:24 | PCM.NOTE ---
Date and Time: 11/06/18818 Subjective Assessment: Patient reports that he continues to feel better. ROCK SPLITTER's report he has had a very good appetite. Speech therapy saw him yesterday and recommended mechanical soft and honey thickened liquids. Patient reports some cough but not much sputum production. He is thinking about rehab but states he would rather go home for a few days first. - Review of Systems Constitutional: Weakness Eyes: No Symptoms Ears, Nose, & Throat: No Symptoms Respiratory: Cough, Wheezing Cardiac: No Symptoms Abdominal/Gastrointestinal: No Symptoms, No Diarrhea, No Constipation Genitourinary Symptoms: No Symptoms Musculoskeletal: No Symptoms Skin: No Symptoms Objective Exam General Appearance: no apparent distress, cachetic, thin Neurologic Exam: alert, cooperative, normal mood/affect Skin Exam: normal color, warm, dry, No rash Wound Assessment: Skin/Wound Assessment Wound/Incision Assessment Start: 11/05/18 00: 31 Text: Status: Active Freq: Q6H Protocol: Document 11/06/18 05:52 (Rec: 11/06/18 05:52 [email or web address]) Wound/Incision Assessment Posterior Coccyx Wound Assessment Admission Wound Type Pressure Ulcer Wound Stage Stage II Drainage Amount None Drainage Odor None/Absent General Appearance Open to air Wound Bed Greatest Portion Dusky Red Surrounding Tissue [place] Comment reddened transcoccygeal stage 2 with sev pen tip -sized scattered shearing areas, open to air at this point Wound Photo Photo Taken No Comment: taken prior this hospital stay Respiratory Exam: other (scattered wheezes throughout, equal breath sounds, no crackles) Cardiovascular Exam: regular rate/rhythm, normal heart sounds, No murmur, No friction rub, No gallop Gastrointestinal/Abdomen Exam: soft, normal bowel sounds, No tenderness, No distention, No mass Extremity Exam: other (no c/c/e) OBJECTIVE DATA Vital Signs: Vital Signs - 24 hr Temp Pulse Resp BP Pulse Ox 11/06/18 07:23 72 16 96 11/06/18 07:05 98.1 F 66 18 108/54 97 11/06/18 03:42 97.6 F 95 H 19 90/57 91 L 11/06/18 03:41 97.6 F 95 H 19 90/57 95 11/06/18 03:10 76 20 96 11/05/18 23:11 90 20 11/05/18 23:03 98.1 F 97 H 16 102/70 96 11/05/18 19:39 98.4 F 101 H 19 100/44 95 11/05/18 19:06 94 L 11/05/18 19:03 90 18 94 L 11/05/18 16:00 98.2 F 83 18 122/56 95 11/05/18 15:26 88 22 95 11/05/18 11:32 98.2 F 94 H 18 118/64 96 11/05/18 10:59 98 H 20 98 Oxygen-Last 24 hours O2 Percentage 2 Liters = 28% O2 Percentage 2 Liters = 28% O2 Percentage 2 Liters = 28% O2 Percentage 2 Liters = 28% O2 Percentage 2 Liters = 28% Pain Assessment - Last Documented Pain Intensity 0 Pain Scale Used 0-10 Pain Scale Intake and Output: Intake & Output 11/04/18 11/05/18 11/06/18 11/07/18 06:59 06:59 06:59 06:59 Intake Total 120 1460 Output Total 100 1050 Balance 20 410 Weight 49.8 kg 49 kg Lab Results: Lab Results-Last 24 Hours 11/06/18 11/06/18 Range/Units 05:30 05:30 WBC 20.9 H (4.0-10.5) K/mm3 RBC 3.43 L (4.1-5.6) M/mm3 Hgb 10.9 L (12.5-18.0) gm/dl Hct 34.2 L (42-50) % MCV 99.7 (78-100) fl MCH 31.7 (26-32) pg MCHC 31.9 L (32-36) g/dl RDW 15.0 H (11.5-14.0) % Plt Count 292 (150-450) K/mm3 MPV 9.6 H (6-9.5) fl Segmented Neutrophils 97 H (36.-66.) % Band Neutrophils 2 (0.0-2.0) % Lymphocytes (Manual) 1 L (24-44) % Platelet Estimate NORMAL (NORMAL) RBC Morphology NORMAL Sodium 137 (137-145) mmol/L Potassium 4.4 (3.5-5.1) mmol/L Chloride 99 (98-107) mmol/L Carbon Dioxide 35 H (22-30) mmol/L Anion Gap 7.6 (5-15) MEQ/L BUN 31 H (9-20) mg/dL Creatinine 0.57 L (0.66-1.25) mg/dL Estimated GFR > 60.0 ML/MIN Glucose 140 H (74-106) mg/dL Calcium 8.5 (8.4-10.2) mg/dL Radiology Exams: Radiology Procedures Category Date Time Status CHEST 1 VIEW (PORTABLE) Stat Exams 11/04/18 21:32 Completed Multi-Disciplinary Progress Notes: Multi-Disciplinary Progress Notes 11/05/18 12:00 (created 11/05/18 13:07) Case Management Note by Laura Morrison CALL TO [facility] TO REPORT REFERRAL. SPOKE WITH ALEXIS, TO DO EVAL. Initialized on 11/05/18 13:07 - END OF NOTE 11/05/18 11:04 Case Management Note by Laura Morrison DISCUSSION WITH PT REGARDING NEEDS AT DISCHARGE. PT DOES AGREE THAT HE HAS GOTTEN SIGNIFICANTLY WEAKER OVER LAST SEVERAL WEEKS. REPORTS THAT HE IS IN AGREEMENT THAT HE NEEDS SOME REHAB PRIOR TO RETURN HOME. WILL PLAN TO RETURN HOME AFTER SHORT TERM REHAB STAY, WILL WANT HIS [facility] TO CONTINUE. REQUESTS REFERRAL TO [facility]. Initialized on 11/05/18 11:04 - END OF NOTE 11/05/18 11:03 Case Management Note by Laura Morrison MESSAGE LEFT AT DR. GATICA OFFICE FOR EMRE TO CALL ME. Initialized on 11/05/18 11:03 - END OF NOTE 11/05/18 10:54 Case Management Note by Laura Morrison DISCUSSION WITH PT'S DAUGHTER, NILSON, LAY CAREGIVER. REPORTS THAT HER DAD HAS GOTTEN INCREASINGLY WEAKER. REPORTS THAT HE HAS [facility] AND NURSE GALLEGO CHECKS ON HIM WEEKLY. REPORTS THAT HE HAD PT/OT SERVICES WITH THEM FOR A PERIOD OF TIME, BUT THAT HAS SINCE ENDED. REPORTS THAT THEY CARRY PT'S MEALS INTO HIM, NILSON LIVES NEXT DOOR AND IS AVAILABLE TO ASSIST DAILY, BUT SHE DOES WORK. DISCUSSED THAT THIS HOSPITAL VISIT WOULD REQUALIFY HIM FOR PT/OT WITH [facility] AT HOME ON DISCHARGE. ALSO, DISCUSSED THAT PT HAS STAGE II PRESSURE ULCER ON HIS COCCYX, AND THIS IS BECAUSE HE IS TOO WEAK TO REPOSITION SELF. DAUGHTER REPORTS THAT SHE WAS UNAWARE OF THE ULCER. REPORTS THAT PT DOES NOT WALK ANYMORE, BUT HAS ALWAYS BEEN ABLE TO TRANSFER SELF FROM BED TO CHAIR AND REPOSITION SELF. DISCUSSED REHAB STAY @ [facility] ON DISCHARGE, NILSON REPORTS THAT SHE FEELS THIS WOULD BENEFIT PT. BUT REPORTS THAT IT WOULD BE HIS DECISION. NILSON REPORTS THAT SHE WILL DISCUSS WITH SIBLINGS. ALSO, NILSON ASKS IF PT HAS UTI, REPORTS THAT HIS URINE WAS VERY DARK AND CONCENTRATED, AND PT DOES NOT VOID VERY MUCH AT A TIME. DISCUSSED THAT U/A HAD NOT BEEN DONE. NILSON REQUESTS THAT WE OBTAIN AN ORDER FOR U/A FROM DR. GATICA. ALSO, IS ASKING ABOUT SOMETHING TO HELP HIM VOID, REPORTS SHE THINKS HE HAS TROUBLE STARTING THE FLOW OF URINE. DISCUSSED THAT I WOULD UPDATE DR. GATICA. Initialized on 11/05/18 10:54 - END OF NOTE Assessment/Plan (1) COPD with exacerbation Current Visit: Yes Status: Acute Onset Date: ~03/17/18 Assessment & Plan: Continue ceftriaxone and azithromycin and start to wean IV steroids. Continue oxygen as needed and breathing treatments as needed. Code(s): J44.1 - CHRONIC OBSTRUCTIVE PULMONARY DISEASE W (ACUTE) EXACERBATION (2) Leukocytosis Current Visit: Yes Status: Acute Qualifiers: Leukocytosis type: unspecified Qualified Code(s): D72.829 - Elevated white blood cell count, unspecified Assessment & Plan: Most likely due to steroids. Clinically, patient is improving. Code(s): D72.829 - ELEVATED WHITE BLOOD CELL COUNT, UNSPECIFIED (3) Tobacco abuse disorder Current Visit: No Status: Chronic Assessment & Plan: Continue nicotine patch. Patient states no desire to quit smoking. Code(s): Z72.0 - TOBACCO USE (4) Poor mobility Current Visit: Yes Status: Acute Assessment & Plan: PT evaluation. Code(s): Z74.09 - OTHER REDUCED MOBILITY (5) Weight loss Current Visit: Yes Status: Acute Assessment & Plan: Dietary consult; good po intake here in the hospital. (6) DVT prophylaxis Current Visit: Yes Status: Acute Assessment & Plan: Continue Trevor hose. Code(s): Z29.9 - ENCOUNTER FOR PROPHYLACTIC MEASURES, UNSPECIFIED
[2018-11-06] MEDS: Zithromax 500 MG/ 250 ML NaCl Premix 500 MG/250 ML IVPB IV SCH (09:25)
[2018-11-06] MEDS: NICODERM CQ 14 MG TOP SCH (09:29)
[2018-11-06] MEDS: Ocuvite Tablet PO SCH (09:29)
[2018-11-06] MEDS: Mobic 7.5 MG PO SCH (09:29)
[2018-11-06] MEDS: Advair Hfa 230/21 Mcg COMMON CANISTER IH SCH ×2 (12:07→19:06)
[2018-11-06] MEDS: ROCEPHIN 1 Gm-D5w 50 ml Bag** 1 G/50 ML IVPB IV SCH (21:23)
[2018-11-07] MEDS: DUONEB 0.5-3 MG/3 ml Neb IH SCH ×6 (04:20→22:57)
[2018-11-07 04:50] LABS: Granulocyte Absolute (ANC) 20.48 (1.4-6.9); Hemoglobin 10.5 gm/dl (12.5-18.0); Mean Corpuscular Hemoglobin 31.8 pg (26-32); Mean Corpuscular Hgb Concent. 31.8 g/dl (32-36); Mean Platelet Volume 9.7 fl (6-9.5); Platelet Count 279 K/mm3 (150-450); Red Cell Distribution Width 15.4 % (11.5-14.0); White Blood Count 22.4 K/mm3 (4.0-10.5)
[2018-11-07 05:18] LABS: ANION GAP 8.8 MEQ/L (5-15); BLOOD UREA NITROGEN 28 mg/dL (9-20); CHLORIDE 100 mmol/L (98-107); Calcium 8.4 mg/dL (8.4-10.2); Carbon Dioxide 32 mmol/L (22-30); Creatinine 1 0.43 mg/dL (0.66-1.25); Glucose 101 mg/dL (74-106); Potassium 4.5 mmol/L (3.5-5.1); SODIUM 136 mmol/L (137-145)
[2018-11-07] MEDS: solu-MEDROL 125 MG IV SCH ×3 (05:22→21:19)
[2018-11-07 06:38] LABS: BAND 5 % (0.0-2.0); Lymphocytes 4 % (24-44); Monocyte 5 % (0.0-12.0); Neutrophils 86 % (36.-66.); Platelet Estimate NORMAL (NORMAL); Total Cells Counted 100
[2018-11-07] MEDS: Advair Hfa 230/21 Mcg COMMON CANISTER IH SCH ×2 (07:30→18:48)
[2018-11-07] MEDS: Ocuvite Tablet PO SCH (09:15)
[2018-11-07] MEDS: NICODERM CQ 14 MG TOP SCH (09:15)
[2018-11-07] MEDS: Zithromax 500 MG/ 250 ML NaCl Premix 500 MG/250 ML IVPB IV SCH (09:15)
[2018-11-07] MEDS: Mobic 7.5 MG PO SCH (09:15)
[2018-11-07] MEDS: Spiriva 18 Mcg/Cap Inhaler IH SCH (11:36)
[2018-11-07] MEDS: Mucinex 600MG ER Tabs PO SCH ×2 (12:22→21:19)
[2018-11-07] MEDS: ROCEPHIN 1 Gm-D5w 50 ml Bag** 1 G/50 ML IVPB IV SCH (21:19)
[2018-11-08] MEDS: DUONEB 0.5-3 MG/3 ml Neb IH SCH ×3 (03:11→11:18)
[2018-11-08 05:18] LABS: Hematocrit 32.6 % (42-50); Hemoglobin 10.7 gm/dl (12.5-18.0); Mean Cell Volume 99.4 fl (78-100); Mean Corpuscular Hemoglobin 32.6 pg (26-32); Mean Corpuscular Hgb Concent. 32.8 g/dl (32-36); Mean Platelet Volume 9.5 fl (6-9.5); Platelet Count 262 K/mm3 (150-450); Red Blood Count 3.28 M/mm3 (4.1-5.6); Red Cell Distribution Width 15.1 % (11.5-14.0); White Blood Count 19.1 K/mm3 (4.0-10.5)
[2018-11-08 05:34] LABS: ANION GAP 8.8 MEQ/L (5-15); BLOOD UREA NITROGEN 23 mg/dL (9-20); CHLORIDE 98 mmol/L (98-107); Calcium 8.3 mg/dL (8.4-10.2); Carbon Dioxide 32 mmol/L (22-30); Creatinine 1 0.41 mg/dL (0.66-1.25); Glucose 127 mg/dL (74-106); Potassium 4.7 mmol/L (3.5-5.1); SODIUM 134 mmol/L (137-145)
[2018-11-08] MEDS: solu-MEDROL 125 MG IV SCH ×2 (06:21→13:44)
[2018-11-08] MEDS: Advair Hfa 230/21 Mcg COMMON CANISTER IH SCH (06:48)
[2018-11-08] MEDS: Spiriva 18 Mcg/Cap Inhaler IH SCH (06:49)
[2018-11-08 06:56] LABS: Total Cells Counted 100
[2018-11-08 06:58] LABS: Platelet Estimate NORMAL (NORMAL)
[2018-11-08 07:55] LABS: Lymphocytes 3 % (24-44); Neutrophils 97 % (36.-66.)
[2018-11-08 07:57] LABS: Toxic Granulation 1+
--- NOTE | 2018-11-08 09:10 | PCM.DCORD ---
- Discharge Discharge Date: 11/08/18 Disposition: DC TO [facility] Condition: Fair Prescriptions: New Smz/Tmp Ds Tablet [Bactrim Ds Tablet] 1 tab PO BID #14 tablet Prednisone 20 mg [Deltasone 20 mg] 20 mg PO UD #13 tablet Guaifenesin 600 mg ER [Mucinex 600MG ER Tabs] 600 mg PO BID tablet Nicotine 14 mg [Nicoderm Cq 14 mg] 14 mg TOP Q24H10 patch Tiotropium Baylis Inhaler [Spiriva 18 Mcg/Cap Inhaler] 1 ea IH DAILY inh Continue Meloxicam 7.5 mg [Mobic 7.5 MG] 7.5 mg PO DAILY Alendronate Sodium 70 mg [Fosamax 70 MG] 70 mg PO WEEKLY Albuterol Sulfate [Proventil Hfa] 2 puffs IH Q4-6HPRN PRN #2 [id number].[id number] PRN Reason: Shortness Of Breath Budesonide/Formoterol Fumarate [Symbicort 160-4.5 Mcg Inhaler] 1 puff IH BID Albuterol/Ipratropium 3ml Neb* [DUONEB 0.5-3 MG/3 ml Neb] 3 ml IH Q4-6HPRN PRN #100 ampul.neb PRN Reason: Cough Acetaminophen [Tylenol] 500 mg PO BID Vit A/Vit C/Vit E/Zinc/Copper [Preservision Areds Softgel] 1 tab PO DAILY Additional Instructions: Dr. Gibbons to follow at [facility]. PT/OT/ST evaluation and treatment. NO STRAWS. Wound care for stage 1 decubitus ulcers and sores on right foot and skin tears on right and left legs. Follow up with: SABINO TALBERT MD [Primary Care Provider] - 1 Week
[2018-11-08] MEDS: NICODERM CQ 14 MG TOP SCH (09:51)
[2018-11-08] MEDS: Zithromax 500 MG/ 250 ML NaCl Premix 500 MG/250 ML IVPB IV SCH (09:51)
[2018-11-08] MEDS: Mobic 7.5 MG PO SCH (09:52)
[2018-11-08] MEDS: Mucinex 600MG ER Tabs PO SCH (09:52)
[2018-11-08] MEDS: Ocuvite Tablet PO SCH (09:52)
--- NOTE | 2018-11-08 09:53 | XRAY ---
Indication: COPD. Comparison: November 04, 2018. PA/lateral chest again demonstrates COPD with new mild left base infiltrate/atelectasis and small bibasilar effusions. Remaining heart and lungs unremarkable again with incidental mediastinal/hilar calcified nodes.
[2018-11-08] MEDS ORDERED: BACTRIM DS TABLET PO SCH (10:00)
[2018-11-08 14:00] VITALS: BP 88/54; PULSE 107; O2SAT 95
[2018-11-11] MEDS ORDERED: Fosamax 70 MG PO SCH (06:00)
== END 2018-11-08 13:55 | DRG 192 ==
LOC: ED 20:57 → MED SURG 23:02 → OBSVTOIN 11-05 08:23
PROVIDERS: ADMIT Internal Medicine; ATTEND Internal Medicine
DX: J44.1 Chronic obstructive pulmonary disease with (acute) exacerbation (principal); D72.829 Elevated white blood cell count, unspecified; L89.152 Pressure ulcer of sacral region, stage 2; Z74.09 Other reduced mobility; R63.4 Abnormal weight loss; Z79.899 Other long term (current) drug therapy; F17.200 Nicotine dependence, unspecified, uncomplicated; Z29.9 Encounter for prophylactic measures, unspecified
CPT/HCPCS: 36000; 36415; 71045; 71046; 80048; 80053; 82805; 83605; 83880; 84134; 84484; 85025; 85379; 85610; 85730; 87040; 87070; 87077; 87186; 92526; 92610; 93005; 93041; 93268; 94150; 94640; 94667; 94668; 94760; 96365; 96374; 97161; 99285; G0378; J0456; J0696; J2930; A9270-GY

== ENCOUNTER 2019-07-12 17:07 | Inpatient (IN) | payer MEDICARE, OTHER ==
[2019-07-12 17:21] LABS: A-aADO2 -3; ABG HEMOGLOBIN 12.9; ARTERIAL BLOOD GAS BASE EXCESS 16.2 (-2.0-2.0); ARTERIAL BLOOD GAS FIO2 28 %; ARTERIAL BLOOD GAS PCO2 51 mmHg (35-45); ARTERIAL BLOOD GAS PO2 139 mmHg (75-100); ARTERIAL BLOOD GAS VENT MODE CANNULA; ARTERIAL BLOOD GAS pH 7.52 (7.35-7.45); CARBOXYHEMOGLOBIN 2.2 % THgb (0.0-6.9); HCO3- 41.6 (22-28); HGB O2 SAT 96.6 g/dF (94-100); Methhemoglobin 1.2 % (1.4-1.5); paO2 pAO1 1.02
[2019-07-12 17:22] LABS: ABG SITE RIGHT BRACHIAL
--- NOTE | 2019-07-12 17:24 | ERPHSYRPT ---
- History of Present Illness Time Seen by Provider: 07/12/19 17:15 Source: patient, family Exam Limitations: clinical condition Physician History: This is a 88-year-old gentleman with history of COPD and continues to smoke. Patient is chronically short of breath. He does not use oxygen at home. In the last few days his symptoms have been worsening. Patient recently completed a steroid bolus. He is no longer on steroids. Patient denies chest pain. He denies abdominal pain. He denies nausea vomiting or diarrhea. Patient denies fever. Patient's last breathing treatment was a nebulizer treatment approximately 4 to 5 hours ago. The patient's son states that a normal room air oxygenation for him is 93%. Timing/Duration: day(s) (Last few), worse Activities at Onset: none Severity of Dyspnea-Max: moderate Severity of Dyspnea-Current: moderate Possible Cause: frequent episodes Modifying Factors: Improves With: activity, exertion (Worsens) Associated Symptoms: No chest pain/discomfort International travel in last 2 weeks: No Allergies/Adverse Reactions: No Known Drug Allergies Allergy (Verified 07/12/19 17:30) Home Medications: Meloxicam 7.5 mg [Mobic 7.5 MG] 7.5 mg PO DAILY 12/23/16 [History] Alendronate Sodium 70 mg [Fosamax 70 MG] 70 mg PO WEEKLY 03/18/17 [History ] Budesonide/Formoterol Fumarate [Symbicort 160-4.5 Mcg Inhaler] 1 puff IH BID 03/24 [History] Acetaminophen [Tylenol] 500 mg PO BID 11/04/18 [History] Vit A/Vit C/Vit E/Zinc/Copper [Preservision Areds Softgel] 2 tab PO DAILY [History] Aspirin EC 81 mg [Ecotrin 81 mg] 81 mg PO DAILY 07/12/19 [History] Budesonide [Pulmicort] 1 mg IH UD 07/12/19 [History] Hx Tetanus, Diphtheria Vaccination/Date Given: No Hx Influenza Vaccination/Date Given: Yes Hx Pneumococcal Vaccination/Date Given: Yes - Review of Systems Constitutional: No Symptoms Eyes: No Symptoms Ears, Nose, & Throat: No Symptoms Respiratory: Dyspnea, No Stridor, No Wheezing Cardiac: No Symptoms, No Chest Pain Abdominal/Gastrointestinal: No Symptoms Genitourinary Symptoms: No Symptoms Musculoskeletal: No Symptoms Skin: No Symptoms Neurological: No Symptoms Psychological: No Symptoms Endocrine: No Symptoms Hematologic/Lymphatic: No Symptoms Immunological/Allergic: No Symptoms All Other Systems: Reviewed and Negative - Past Medical History Pertinent Past Medical History: Yes Neurological History: No Pertinent History ENT History: Macular Degeneration Cardiac History: No Pertinent History Respiratory History: COPD, Emphysema, Pneumonia Endocrine Medical History: No Pertinent History Musculoskeletal History: Osteoarthritis GI Medical History: No Pertinent History History: No Pertinent History Psycho-Social History: No Pertinent History Male Reproductive Disorders: No Pertinent History Other Medical History: Arthritis in back - Past Surgical History Past Surgical History: Yes Neuro Surgical History: No Pertinent History Cardiac: No Pertinent History Respiratory: No Pertinent History Gastrointestinal: No Pertinent History Genitourinary: Other Musculoskeletal: Orthopedic Surgery Male Surgical History: Testicular Surgery Other Surgical History: states had testicle removed 60 years ago LLL FX repair. - Social History Smoking Status: Current every day smoker How long have you smoked: 75 years Exposure to second hand smoke: Yes Alcohol Use: None Drug Use: none Patient Lives Alone: No Significant Family History: no pertinent family hx - Nursing Vital Signs Nursing Vital Signs: Initial Vital Signs Temperature 98.3 F 07/12/19 17:11 Pulse Rate 74 07/12/19 17:11 Respiratory Rate 15 07/12/19 17:11 Blood Pressure 137/86 07/12/19 17:11 O2 Sat by Pulse Oximetry 78 L 07/12/19 17:11 Pain Scale Pain Intensity 0 - Physical Exam General Appearance: moderate distress, alert, anxiety, cachetic, thin Eye Exam: PERRL/EOMI, eyes nml inspection Ears, Nose, Throat Exam: hearing decreased Neck Exam: normal inspection Respiratory Exam: diminished breath sounds, rhonchi, No wheezing, No stridor Cardiovascular/Chest Exam: tachycardia Abdominal/Gastrointestinal Exam: soft, normal bowel sounds, No tenderness Rectal Exam: not done Extremity Exam: non-tender, normal range of motion, normal inspection, pelvis stable Neurologic Exam: alert, oriented x 3, cooperative, 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 No comparison EKG) Ordered Tests: Active Orders 24 hr Category Date Time Status Cutter And Edge Trimmer STAT Care 07/12/19 17:32 Active EKG-ER Only STAT Care 07/12/19 17:25 Active IV Insertion STAT Care 07/12/19 17:25 Active IV Insertion-2nd Peripheral STAT Care 07/12/19 17:29 Active Oxygen-ED Only Nasal Cannula 3 lpm Care 07/12/19 18:00 Active Pulse Oximetry (ED) STAT Care 07/12/19 17:25 Active CHEST 1 VIEW (PORTABLE) Stat Exams 07/12/19 17:26 Ordered ABG [ARTERIAL BLOOD GASES] Stat Lab 07/12/19 17:14 Completed BLOOD CULTURE Stat Lab 07/12/19 18:12 Received CBC W DIFF Stat Lab 07/12/19 17:29 Completed CMP Stat Lab 07/12/19 17:29 Completed Lactic Acid Stat Lab 07/12/19 17:25 Completed Manual Differential NC Stat Lab 07/12/19 17:29 Completed NT PRO BNP Stat Lab 07/12/19 17:29 Completed PROTIME WITH INR Stat Lab 07/12/19 17:29 Completed TROPONIN Q3H Lab 07/12/19 17:29 Completed TROPONIN Q3H Lab 07/12/19 20:30 Ordered TROPONIN Q3H Lab 07/12/19 23:30 Ordered TROPONIN Q3H Lab 07/13/19 03:30 Ordered TROPONIN Q3H Lab 07/13/19 06:30 Ordered Respiratory Therapy Assessment DAILY RT 07/12/19 17:33 Completed Transfer Order Routine Transfer 07/12/19 Ordered Medication Summary Generic Name Dose Route Start Last Admin Trade Name Freq PRN Reason Stop Dose Admin Meropenem 1 g/ Sodium Chloride 100 mls @ 200 mls/hr 07/12/19 18:08 IV 07/12/19 18:37 STAT ONE Sodium Chloride 1,000 mls @ 999 mls/hr 07/12/19 18:08 Sodium Chloride 0.9% 1000 Ml IV 07/12/19 19:08 .Q1H1M STA Discontinued Medications Generic Name Dose Route Start Last Admin Trade Name Freq PRN Reason Stop Dose Admin Albuterol/Ipratropium Confirm 07/12/19 17:25 Duoneb 0.5-3 Mg/3 Ml Neb Administered 07/12/19 17:26 Dose 3 ml IH .STK-MED ONE Albuterol/Ipratropium 3 ml 07/12/19 17:33 07/12/19 17:34 Duoneb 0.5-3 Mg/3 Ml Neb IH 07/12/19 17:34 3 ml STAT ONE Administration Sodium Chloride Confirm 07/12/19 18:11 Sodium Chloride 0.9% 100 Ml Ivpb Administered 07/12/19 18:12 Dose 100 mls @ ud IV .STK-MED ONE Sodium Chloride Confirm 07/12/19 18:11 Sodium Chloride 0.9% 1000 Ml Administered 07/12/19 18:12 Dose 1,000 mls @ ud .ROUTE .STK-MED ONE Meropenem Confirm 07/12/19 18:11 Merrem 1 Gm Administered 07/12/19 18:12 Dose 1 g IV .STK-MED ONE Methylprednisolone Sodium Succinate 125 mg 07/12/19 17:25 07/12/19 17:33 Solu-Medrol 125 Mg IV 07/12/19 17:26 125 mg STAT ONE Administration Methylprednisolone Sodium Succinate Confirm 07/12/19 17:32 Solu-Medrol 125 Mg Administered 07/12/19 17:33 Dose 125 mg .ROUTE .STK-MED ONE Lab/Rad Data: Laboratory Result Diagrams 07/12/19 17:29 07/12/19 17:29 Laboratory Results 07/12/19 07/12/19 07/12/19 Range/Units 17:29 17:29 17:29 WBC (4.0-10.5) K/mm3 RBC (4.1-5.6) M/mm3 Hgb (12.5-18.0) gm/dl Hct (42-50) % MCV (78-100) fl MCH (26-32) pg MCHC (32-36) g/dl RDW (11.5-14.0) % Plt Count (150-450) K/mm3 MPV (7.5-11.0) fl PT 11.4 (8.83-12.87) SECONDS INR 1.01 (0.8-3.0) Puncture Site pCO2 (35-45) mmHg pO2 (75-100) mmHg Base Excess (-2.0-2.0) O2 Saturation (94-100) g/dF ABG pH (7.35-7.45) ABG HCO3 (22-28) ABG O2 Sat (Measured) (95-100) % Ricardo Test A-a Gradient a/A Ratio Hemoglobin Carboxyhemoglobin (0.0-6.9) % THgb Methemoglobin (1.4-1.5) % Temperature C POC O2 Flow Rate % Vent Mode Sodium 137 (137-145) mmol/L Potassium 4.1 (3.5-5.1) mmol/L Chloride 100 (98-107) mmol/L Carbon Dioxide 32 H (22-30) mmol/L Anion Gap 9.1 (5-15) MEQ/L BUN 24 H (9-20) mg/dL Creatinine 0.64 L (0.66-1.25) mg/dL Estimated GFR > 60.0 ML/MIN Glucose 131 H (74-106) mg/dL Lactic Acid (0.4-2.0) Calcium 8.8 (8.4-10.2) mg/dL Total Bilirubin 0.40 (0.2-1.3) mg/dL AST 23 (17-59) U/L ALT 21 (0-50) U/L Alkaline Phosphatase 96 (38-126) U/L Troponin I < 0.012 (0.000-0.034) ng/mL NT-Pro-B Natriuret Pep 693 (0-1800) pg/mL Serum Total Protein 6.5 (6.3-8.2) g/dL Albumin 3.8 (3.5-5.0) g/dL 07/12/19 07/12/19 07/12/19 Range/Units 17:29 17:25 17:14 WBC 17.9 H (4.0-10.5) K/mm3 RBC 4.08 L (4.1-5.6) M/mm3 Hgb 12.5 (12.5-18.0) gm/dl Hct 39.2 L (42-50) % MCV 96.1 (78-100) fl MCH 30.6 (26-32) pg MCHC 31.9 L (32-36) g/dl RDW 16.3 H (11.5-14.0) % Plt Count 324 (150-450) K/mm3 MPV 9.2 (7.5-11.0) fl PT (8.83-12.87) SECONDS INR (0.8-3.0) Puncture Site RIGHT BRACHIAL pCO2 51 H (35-45) mmHg pO2 139 H* (75-100) mmHg Base Excess 16.2 H (-2.0-2.0) O2 Saturation 96.6 (94-100) g/dF ABG pH 7.52 H (7.35-7.45) ABG HCO3 41.6 H* (22-28) ABG O2 Sat (Measured) 100.0 (95-100) % Ricardo Test NOT APPLICABLE A-a Gradient -3 a/A Ratio 1.02 Hemoglobin 12.9 Carboxyhemoglobin 2.2 (0.0-6.9) % THgb Methemoglobin 1.2 L (1.4-1.5) % Temperature 37.0 C POC O2 Flow Rate 28 % Vent Mode CANNULA Sodium (137-145) mmol/L Potassium (3.5-5.1) mmol/L Chloride (98-107) mmol/L Carbon Dioxide (22-30) mmol/L Anion Gap (5-15) MEQ/L BUN (9-20) mg/dL Creatinine (0.66-1.25) mg/dL Estimated GFR ML/MIN Glucose (74-106) mg/dL Lactic Acid 2.7 H (0.4-2.0) Calcium (8.4-10.2) mg/dL Total Bilirubin (0.2-1.3) mg/dL AST (17-59) U/L ALT (0-50) U/L Alkaline Phosphatase (38-126) U/L Troponin I (0.000-0.034) ng/mL NT-Pro-B Natriuret Pep (0-1800) pg/mL Serum Total Protein (6.3-8.2) g/dL Albumin (3.5-5.0) g/dL - Progress Progress: improved, re-examined Air Movement: fair Progress Note: 07/12/19 18:09 The cxr reveals right upper lobe and right perihilar infiltrate. 2 chest x-ray dated November 04, 2018. Medical decision making: Clinically, the patient states he is slowly improving. Patient's white blood cell count is elevated and he has an elevated lactic acid level. I contacted Dr. Prado who is covering for Dr. Talbert, who after I reviewed the patient's day and results has accepted the patient to be placed in observation. The patient will benefit from telemetry observation with respiratory therapy, intravenous fluids and intravenous antibiotics. We will also place him on steroids as well. We will repeat labs in the morning. Patient appears to have pneumonia with COPD exacerbation and lactic acidosis as well as leukocytosis. Blood Culture(s) Obtained: Yes Antibiotics given: Yes Discussed with : Tigist Counseled pt/family regarding: lab results, diagnosis, rad results - Departure Departure Disposition: Observation Clinical Impression: Leukocytosis, Pneumonia, COPD exacerbation, Lactic acidosis, Hypoxia Condition: Fair Critical Care Time: Yes Critical Care Time(excluding separately billable procedures): Critical 30-74 mins Referrals: SABINO TALBERT MD [Primary Care Provider] - Instructions: Chronic Obstructive Pulmonary Disease
[2019-07-12] MEDS ORDERED: DUONEB 0.5-3 MG/3 ml Neb IH ONE ×3 (17:25→17:35)
[2019-07-12] MEDS ORDERED: solu-MEDROL 125 MG IV ONE (17:25)
[2019-07-12] MEDS ORDERED: solu-MEDROL 125 MG ONE (17:32)
[2019-07-12 17:35] LABS: INR 1.01 (0.8-3.0); PROTIME 11.4 SECONDS (8.83-12.87)
[2019-07-12 17:42] LABS: Hematocrit 39.2 % (42-50); Hemoglobin 12.5 gm/dl (12.5-18.0); Mean Cell Volume 96.1 fl (78-100); Mean Corpuscular Hemoglobin 30.6 pg (26-32); Mean Corpuscular Hgb Concent. 31.9 g/dl (32-36); Mean Platelet Volume 9.2 fl (7.5-11.0); Platelet Count 324 K/mm3 (150-450); Red Blood Count 4.08 M/mm3 (4.1-5.6); Red Cell Distribution Width 16.3 % (11.5-14.0); White Blood Count 17.9 K/mm3 (4.0-10.5)
[2019-07-12 17:49] LABS: ALBUMIN 3.8 g/dL (3.5-5.0); ALKALINE PHOSPHATASE 96 U/L (38-126); ANION GAP 9.1 MEQ/L (5-15); BLOOD UREA NITROGEN 24 mg/dL (9-20); CHLORIDE 100 mmol/L (98-107); Calcium 8.8 mg/dL (8.4-10.2); Carbon Dioxide 32 mmol/L (22-30); Creatinine 1 0.64 mg/dL (0.66-1.25); Glucose 131 mg/dL (74-106); NT PRO BNP 693 pg/mL (0-1800); Potassium 4.1 mmol/L (3.5-5.1); SGOT/AST 23 U/L (17-59); SGPT/ALT 21 U/L (0-50); SODIUM 137 mmol/L (137-145); Total Protein 6.5 g/dL (6.3-8.2)
[2019-07-12] MEDS ORDERED: Sodium Chloride 0.9% 1000 ML 1,000 ML IV STA (18:08)
[2019-07-12] MEDS ORDERED: Merrem 1 GM 1 G in Sodium Chloride 100ML MINI-BAG PLUS 100 ML IV ONE (18:08)
[2019-07-12] MEDS ORDERED: Sodium Chloride 0.9% 100 ML IVPB 100 ML IV ONE ×2 (18:11→21:15)
[2019-07-12] MEDS ORDERED: Sodium Chloride 0.9% 1000 ML 1,000 ML ONE (18:11)
[2019-07-12] MEDS ORDERED: Merrem 1 GM IV ONE ×2 (18:11→21:14)
[2019-07-12] MEDS ORDERED: TYLENOL 325 MG PO PRN (18:39)
[2019-07-12] MEDS ORDERED: Zofran 4 MG/2 ML VIAL IV PRN (18:39)
[2019-07-12] MEDS ORDERED: solu-MEDROL 125 MG IV SCH (18:39)
[2019-07-12 18:54] LABS: ATYPICAL LYMPHS 3 %; BAND 2 % (0.0-2.0); Eosinophil 2 % (0.00-3.0); Lymphocytes 5 % (24-44); Monocyte 7 % (0.0-12.0); Neutrophils 81 % (36.-66.); Platelet Estimate NORMAL (NORMAL); Total Cells Counted 100
[2019-07-12 18:55] LABS: Schistocytes 1+
[2019-07-12] MEDS: Sodium Chloride 0.9% 1000 ML 1,000 ML IV SCH (19:45)
[2019-07-12 20:35] LABS: INFLUENZA A NEGATIVE (NEGATIVE); INFLUENZA B NEGATIVE (NEGATIVE); RESPIRATORY SYNCTIAL VIRUS NEGATIVE (Negative)
--- NOTE | 2019-07-12 21:03 | XRAY ---
Indication: Cough and short of breath. Comparison: November 08, 2018. Portable chest is slightly rotated and clear. Heart and mediastinal structures within normal limits again with mediastinal/hilar calcified nodes. Bony thorax intact again with osteopenia, degenerative changes, and scoliosis. Impression: Nonacute chest with chronic features.
[2019-07-12] MEDS: Mobic 7.5 MG PO SCH (21:35)
[2019-07-12] MEDS ORDERED: Fosamax 70 MG PO SCH (22:00)
[2019-07-12] MEDS ORDERED: Merrem 1 GM 1 G in Sodium Chloride 100ML MINI-BAG PLUS 100 ML IV SCH (22:00)
[2019-07-12] MEDS: DUONEB 0.5-3 MG/3 ml Neb IH SCH (22:41)
[2019-07-13] MEDS ORDERED: solu-MEDROL 125 MG IV SCH (03:00)
[2019-07-13] MEDS: DUONEB 0.5-3 MG/3 ml Neb IH SCH ×6 (03:14→23:08)
[2019-07-13] MEDS: Merrem 1 GM 1 G in Sodium Chloride 100ML MINI-BAG PLUS 100 ML IV SCH ×3 (03:21→17:09)
[2019-07-13 06:06] LABS: Hematocrit 31.2 % (42-50); Mean Cell Volume 97.2 fl (78-100); Mean Corpuscular Hemoglobin 31.2 pg (26-32); Mean Corpuscular Hgb Concent. 32.1 g/dl (32-36); Mean Platelet Volume 9.8 fl (7.5-11.0); Platelet Count 259 K/mm3 (150-450); Red Blood Count 3.21 M/mm3 (4.1-5.6); Red Cell Distribution Width 16.2 % (11.5-14.0); White Blood Count 13.2 K/mm3 (4.0-10.5)
[2019-07-13 06:10] LABS: ALBUMIN 2.9 g/dL (3.5-5.0); ALKALINE PHOSPHATASE 71 U/L (38-126); ANION GAP 9.9 MEQ/L (5-15); BLOOD UREA NITROGEN 22 mg/dL (9-20); CHLORIDE 105 mmol/L (98-107); Calcium 7.8 mg/dL (8.4-10.2); Carbon Dioxide 23 mmol/L (22-30); Creatinine 1 0.44 mg/dL (0.66-1.25); Glucose 232 mg/dL (74-106); Potassium 3.8 mmol/L (3.5-5.1); SGOT/AST 20 U/L (17-59); SGPT/ALT 16 U/L (0-50); SODIUM 134 mmol/L (137-145); Total Protein 5.1 g/dL (6.3-8.2)
[2019-07-13 06:55] LABS: BAND 1 % (0.0-2.0); Lymphocytes 3 % (24-44); Neutrophils 96 % (36.-66.); Total Cells Counted 100; Toxic Granulation 1+
[2019-07-13 06:56] LABS: ANISOCYTOSIS 1+; Microcytosis 1+; Platelet Estimate NORMAL (NORMAL); Poikilocytosis 1+
[2019-07-13] MEDS: Sodium Chloride 0.9% 1000 ML 1,000 ML IV SCH ×2 (07:50→17:09)
[2019-07-13] MEDS ORDERED: BUDESONIDE 1 MG IH SCH (10:00)
[2019-07-13] MEDS ORDERED: VIT C PO SCH (10:00)
[2019-07-13] MEDS ORDERED: VIT A PO SCH (10:00)
[2019-07-13] MEDS ORDERED: Ventolin Hfa MDI IH PRN (10:00)
[2019-07-13] MEDS ORDERED: NON-FORMULARY ITEM (Budesonide/Formoterol Fumarate [Symbicort 160-4.5 Mcg Inhaler] 1 PUFF) IH SCH (10:00)
[2019-07-13] MEDS ORDERED: ZINC PO SCH (10:00)
[2019-07-13] MEDS ORDERED: DUONEB 0.5-3 MG/3 ml Neb IH PRN (10:00)
[2019-07-13] MEDS ORDERED: COPPER PO SCH (10:00)
[2019-07-13] MEDS ORDERED: VIT E PO SCH (10:00)
[2019-07-13] MEDS ORDERED: Advair Hfa 230/21 Mcg COMMON CANISTER IH SCH (10:00)
[2019-07-13] MEDS ORDERED: VENTOLIN COMMON CANISTER IH PRN (10:09)
[2019-07-13] MEDS: TYLENOL EXTRA STRENGTH 500 MG PO SCH (10:42)
[2019-07-13] MEDS: Ocuvite Tablet PO SCH (10:42)
[2019-07-13] MEDS ORDERED: Merrem 1 GM 1 G in Sodium Chloride 100ML MINI-BAG PLUS 100 ML IV SCH (14:00)
[2019-07-13] MEDS: solu-MEDROL 125 MG IV SCH ×2 (14:41→21:29)
[2019-07-13] MEDS: Mobic 7.5 MG PO SCH (21:24)
[2019-07-14] MEDS: DUONEB 0.5-3 MG/3 ml Neb IH SCH ×6 (02:58→23:11)
[2019-07-14 04:59] LABS: Hematocrit 30.6 % (42-50); Hemoglobin 9.8 gm/dl (12.5-18.0); Mean Cell Volume 96.2 fl (78-100); Mean Corpuscular Hemoglobin 30.8 pg (26-32); Mean Platelet Volume 9.6 fl (7.5-11.0); Platelet Count 271 K/mm3 (150-450); Red Blood Count 3.18 M/mm3 (4.1-5.6); Red Cell Distribution Width 16.2 % (11.5-14.0); White Blood Count 19.1 K/mm3 (4.0-10.5)
[2019-07-14 05:20] LABS: ALBUMIN 2.9 g/dL (3.5-5.0); ALKALINE PHOSPHATASE 71 U/L (38-126); BLOOD UREA NITROGEN 21 mg/dL (9-20); CHLORIDE 105 mmol/L (98-107); Calcium 7.9 mg/dL (8.4-10.2); Carbon Dioxide 26 mmol/L (22-30); Creatinine 1 0.43 mg/dL (0.66-1.25); Glucose 134 mg/dL (74-106); Potassium 4.1 mmol/L (3.5-5.1); SGOT/AST 21 U/L (17-59); SGPT/ALT 17 U/L (0-50); SODIUM 135 mmol/L (137-145); Total Protein 5.3 g/dL (6.3-8.2)
[2019-07-14] MEDS: Merrem 1 GM 1 G in Sodium Chloride 100ML MINI-BAG PLUS 100 ML IV SCH ×2 (05:24→18:34)
[2019-07-14] MEDS: Sodium Chloride 0.9% 1000 ML 1,000 ML IV SCH ×2 (05:25→17:16)
[2019-07-14] MEDS: solu-MEDROL 125 MG IV SCH ×3 (05:25→21:28)
--- NOTE | 2019-07-14 08:13 | HP ---
CHIEF COMPLAINT: Shortness of breath and productive cough. HISTORY OF PRESENT ILLNESS: The patient is an 88 year-old white male with history of chronic obstructive pulmonary disease. He had been treated fairly recently for acute exacerbation having just recently finished steroid bolus. Currently he is off of the steroid medications and had increasing trouble with his breathing and presented himself to the emergency room for evaluation and management. PAST MEDICAL/SURGICAL HISTORY: Otherwise significant for osteoarthritis. HOME MEDICATIONS: Meloxicam 7.5 mg daily, Fosamax 70 mg weekly, Symbicort 160/4.5, aspirin 81 mg a day, Pulmicort. ALLERGIES: NKDA. PHYSICAL EXAMINATION: The patient's vital signs on admission showed a temperature 98.3F, pulse 74, respiratory rate 15 and blood pressure 137/86. O2 saturation 78% on initial evaluation. HEENT: Normocephalic, atraumatic. Pupils equal round reactive to light. He is not currently wearing oxygen. NECK: Supple without lymphadenopathy, thyromegaly or JVD. CHEST: Coarse rales but no wheezes currently. ABDOMEN: Scaphoid. No palpable masses. EXTREMITIES: Without cyanosis, clubbing or edema. There is however some rubor to his feet and a small area on the top of the foot which appears to be mildly infected with a scab overlying it. NEUROLOGIC: The patient is currently alert and oriented x3. No focal neurologic deficits. LAB DATA AND TESTS: Chest x-ray showed no acute findings. His ABG showed pH of 7.52, pCO2 51, pO2 139. His lactic acid was 2.7. International normalized ratio 1.01. His white count was 17,900 with hemoglobin 12.5, PLT count 324,000. Troponins less than 0.012. Metabolic panel showed glucose 131, BUN 24, creatinine 0.64. Electrolytes were normal. Liver enzymes normal. Repeat lactic acid was 0.8. ASSESSMENT: A patient with acute exacerbation of chronic obstructive pulmonary disease and hypoxia which has been corrected nicely with IV steroids and nebulizer treatments. The patient has been admitted on meropenem and Solu-Medrol 80 mg IV every 8 hours and nebulizer treatments.
--- NOTE | 2019-07-14 08:17 | PCM.NOTE ---
Date and Time: 07/14/19814 Subjective Assessment: patient notes improvement in his breathing, had a coughing episode with some choking last night on mucous so oxygen was put back on. Objective Exam General Appearance: no apparent distress, cachetic, thin Neurologic Exam: alert, oriented x 3, cooperative Skin Exam: normal color, warm, dry Respiratory Exam: prolonged expirations, wheezing Cardiovascular Exam: regular rate/rhythm, normal heart sounds Gastrointestinal/Abdomen Exam: soft, No tenderness, No mass OBJECTIVE DATA Vital Signs: Vital Signs - 24 hr Temp Pulse Resp BP Pulse Ox 07/14/19 07:12 98.2 F 81 18 134/74 97 07/14/19 06:32 87 18 97 07/14/19 04:00 98.0 F 72 21 102/53 97 07/14/19 02:58 72 21 97 07/14/19 00:01 98.1 F 91 H 18 114/72 92 L 07/13/19 23:08 84 20 96 07/13/19 20:25 98.0 F 70 20 122/60 94 L 07/13/19 18:54 68 22 95 07/13/19 15:51 98.3 F 84 18 124/54 95 07/13/19 15:02 84 18 93 L 07/13/19 12:24 98.6 F 89 18 131/70 93 L 07/13/19 10:15 62 18 96 Pain Assessment - Last Documented Pain Intensity 0 Pain Scale Used 0-10 Pain Scale Intake and Output: Intake & Output 07/11/19 07/12/19 07/13/19 07/14/19 10:59 10:59 11:59 11:59 Intake Total 2188 Output Total 1050 Balance 1138 Weight 51.2 kg Lab Results: Lab Results-Last 24 Hours 07/13/19 07/14/19 07/14/19 Range/Units 05:00 04:44 04:44 WBC 19.1 H (4.0-10.5) K/mm3 RBC 3.18 L (4.1-5.6) M/mm3 Hgb 9.8 L (12.5-18.0) gm/dl Hct 30.6 L (42-50) % MCV 96.2 (78-100) fl MCH 30.8 (26-32) pg MCHC 32.0 (32-36) g/dl RDW 16.2 H (11.5-14.0) % Plt Count 271 (150-450) K/mm3 MPV 9.6 (7.5-11.0) fl Sodium 135 L (137-145) mmol/L Potassium 4.1 (3.5-5.1) mmol/L Chloride 105 (98-107) mmol/L Carbon Dioxide 26 (22-30) mmol/L Anion Gap 8.0 (5-15) MEQ/L BUN 21 H (9-20) mg/dL Creatinine 0.43 L (0.66-1.25) mg/dL Estimated GFR > 60.0 ML/MIN Glucose 134 H (74-106) mg/dL Calcium 7.9 L (8.4-10.2) mg/dL Total Bilirubin 0.30 (0.2-1.3) mg/dL AST 21 (17-59) U/L ALT 17 (0-50) U/L Alkaline Phosphatase 71 (38-126) U/L Serum Total Protein 5.3 L (6.3-8.2) g/dL Albumin 2.9 L (3.5-5.0) g/dL Prealbumin 20.15 (17.6-36.0) mg/dL Radiology Exams: Radiology Procedures Category Date Time Status CHEST 1 VIEW (PORTABLE) Stat Exams 07/12/19 17:26 Completed Assessment/Plan (1) COPD exacerbation Current Visit: Yes Status: Acute Assessment & Plan: continue IV solu medrol and nebs, on meropenem for pneumonia Code(s): J44.1 - CHRONIC OBSTRUCTIVE PULMONARY DISEASE W (ACUTE) EXACERBATION (2) Pneumonia Current Visit: Yes Status: Acute Onset Date: ~03/17/18 Qualifiers: Assessment & Plan: meropenem, lactic acid normalized after admission Code(s): J18.9 - PNEUMONIA, UNSPECIFIED ORGANISM
[2019-07-14] MEDS: TYLENOL EXTRA STRENGTH 500 MG PO SCH (10:32)
[2019-07-14] MEDS: Ocuvite Tablet PO SCH (10:32)
[2019-07-14] MEDS: Mobic 7.5 MG PO SCH (21:28)
[2019-07-15] MEDS: DUONEB 0.5-3 MG/3 ml Neb IH SCH ×6 (02:55→22:44)
[2019-07-15] MEDS: Sodium Chloride 0.9% 1000 ML 1,000 ML IV SCH ×2 (03:38→14:32)
[2019-07-15] MEDS: Merrem 1 GM 1 G in Sodium Chloride 100ML MINI-BAG PLUS 100 ML IV SCH ×2 (06:14→18:26)
[2019-07-15] MEDS: solu-MEDROL 125 MG IV SCH (06:14)
--- NOTE | 2019-07-15 09:09 | PCM.NOTE ---
Date and Time: 07/15/19906 Subjective Assessment: Pt would like to go home. Ramonita po. No complaints, breathing is better. - Review of Systems Constitutional: No Fever Respiratory: Cough, Short Of Breath Objective Exam General Appearance: no apparent distress, alert Neurologic Exam: oriented x 3, cooperative Skin Exam: normal color, warm, dry, No rash Eye Exam: eyes nml inspection Ears, Nose, Throat Exam: moist mucous membranes Respiratory Exam: diminished breath sounds (fair air exchange), wheezing ( throughout, expiratory), No crackles/rales, No rhonchi Cardiovascular Exam: regular rate/rhythm, normal heart sounds, No murmur Extremity Exam: normal inspection, No pedal edema, No swelling Back Exam: normal inspection, No rash OBJECTIVE DATA Vital Signs: Vital Signs - 24 hr Temp Pulse Resp BP Pulse Ox 07/15/19 08:00 98.2 F 70 18 124/58 94 L 07/15/19 07:13 88 22 97 07/15/19 03:34 97.9 F 87 20 89/50 98 07/15/19 02:55 87 20 98 07/15/19 00:56 98.9 F 79 20 129/60 98 07/14/19 23:11 79 20 98 07/14/19 21:00 98.4 F 95 H 24 131/61 96 07/14/19 19:11 91 H 15 98 07/14/19 16:05 98.3 F 92 H 18 109/51 95 07/14/19 15:02 96 07/14/19 13:00 98.2 F 86 18 127/57 95 07/14/19 11:05 78 18 98 Pain Assessment - Last Documented Pain Intensity 0 Pain Scale Used [facility] Intake and Output: Intake & Output 07/12/19 07/13/19 07/14/19 07/15/19 10:59 11:59 11:59 11:59 Intake Total 2868 3746 Output Total 1050 500 Balance 1818 3246 Weight 51.2 kg 56.9 kg Multi-Disciplinary Progress Notes: Multi-Disciplinary Progress Notes 07/14/19 11:07 Case Management Note by Loretta Marie ATTEMPTED TO CALL [facility] AT THIS TIME TO S/W HER ABOUT DC PLANS/NEEDS. NO ANSWER - WILL CONTINUE TO TRY TO CONTACT Initialized on 07/14/19 11:07 - END OF NOTE Assessment/Plan (1) COPD exacerbation Current Visit: Yes Status: Acute Assessment & Plan: Decreasing steroid today, if doing well on that may be able to d/c home tomorrow. On meropenem day #3 today. Code(s): J44.1 - CHRONIC OBSTRUCTIVE PULMONARY DISEASE W (ACUTE) EXACERBATION (2) Pneumonia Current Visit: Yes Status: Acute Onset Date: ~03/17/18 Qualifiers: Pneumonia type: due to unspecified organism Laterality: unspecified laterality Lung location: unspecified part of lung Qualified Code(s): J18.9 - Pneumonia, unspecified organism Code(s): J18.9 - PNEUMONIA, UNSPECIFIED ORGANISM (3) HTN (hypertension) Current Visit: No Status: Chronic Qualifiers: Hypertension type: essential hypertension Qualified Code(s): I10 - Essential (primary) hypertension Code(s): I10 - ESSENTIAL (PRIMARY) HYPERTENSION
[2019-07-15] MEDS: Ocuvite Tablet PO SCH (09:17)
[2019-07-15] MEDS: TYLENOL EXTRA STRENGTH 500 MG PO SCH (09:18)
[2019-07-15] MEDS: solu-MEDROL 40 MG IV SCH ×2 (14:31→21:01)
[2019-07-15] MEDS: Mobic 7.5 MG PO SCH (21:01)
[2019-07-16] MEDS: Sodium Chloride 0.9% 1000 ML 1,000 ML IV SCH (02:04)
[2019-07-16] MEDS: DUONEB 0.5-3 MG/3 ml Neb IH SCH ×3 (03:00→10:45)
[2019-07-16] MEDS: Merrem 1 GM 1 G in Sodium Chloride 100ML MINI-BAG PLUS 100 ML IV SCH (06:13)
[2019-07-16] MEDS: solu-MEDROL 40 MG IV SCH (06:14)
[2019-07-16 09:06] LABS: Hematocrit 33.8 % (42-50); Hemoglobin 10.6 gm/dl (12.5-18.0); Mean Cell Volume 96.8 fl (78-100); Mean Corpuscular Hemoglobin 30.4 pg (26-32); Mean Corpuscular Hgb Concent. 31.4 g/dl (32-36); Mean Platelet Volume 9.5 fl (7.5-11.0); Platelet Count 259 K/mm3 (150-450); Red Blood Count 3.49 M/mm3 (4.1-5.6); Red Cell Distribution Width 16.6 % (11.5-14.0); White Blood Count 14.8 K/mm3 (4.0-10.5)
--- NOTE | 2019-07-16 09:09 | PCM.DS ---
Discharge Summary Date of Admission: 07/13/19 09:47 Admitting Physician: CATARINO SHAH Primary Care Provider: SABINO TALBERT Allergies Allergies No Known Drug Allergies Allergy (Verified 07/12/19 17:30) Hospital Summary - Hospital Course Hospital Course: patient was admitted with shortness and productive cough, he has advanced/end stage copd. his family is very supportive and committed to keeping him living in his own home. he has improved and appears to be back to his baseline, no increase in work of breathing and sats are good on 2L NC. - Vitals & Intake/Output Vital Signs: Vital Signs Temperature 98.1 F 07/16/19 07:56 Pulse Rate 81 07/16/19 07:56 Respiratory Rate 18 07/16/19 07:56 Blood Pressure 100/66 07/16/19 07:56 O2 Sat by Pulse Oximetry 95 07/16/19 07:56 Intake & Output: Intake & Output 07/13/19 07/14/19 07/15/19 07/16/19 11:59 11:59 11:59 11:59 Intake Total 2868 4426 3576 Output Total 1050 500 Balance 1818 3926 3576 Weight 51.2 kg 56.9 kg 57.1 kg - Lab Result Diagrams: 07/14/19 04:44 07/14/19 04:44 Micro Results-Entire Visit: Microbiology 07/12/19 18:12 Blood Culture - Preliminary Blood NO GROWTH TO DATE 07/12/19 17:15 Blood Culture - Preliminary Blood NO GROWTH TO DATE - Procedures and Test Procedures and Tests throughout Hospitalization: Therapy Orders & Screens 07/12/19 17:33 Respiratory Therapy Assessment DAILY Comment: 07/12/19 18:39 Oxygen Nasal Cannula 3 lpm Comment: Respiratory Therapy Consult ROUTINE Comment: Reason For Exam: 07/12/19 19:06 Peak Expiratory Flow Rate ONCE Comment: Reason For Exam: Respiratory Therapy Assessment DAILY Comment: 07/12/19 22:29 RT Screen per Nursing Assess Comment: Protocol Order Physician Instructions: Greater than 3 points order RT Admission Screen Reason For Exam: Triggered on Admission Diagnosis: Pneumonia, leukocytosis, COPD exac, lactic Acidosis, Hypoxia Diagnosis: Pneumonia, leukocytosis, COPD exac, lactic Acidosis, Hypoxia Pneumonia: Yes Home O2: No Asthma: No CHF: No Home CPAP/BIPAP: No Home Nebs/MDI: Yes Total Points: 8 Smoking Cessation Education ONCE Comment: Diagnosis: Pneumonia, leukocytosis, COPD exac, lactic Acidosis, Hypoxia Smoking Status: Current every day smoker How long have you smoked: 75 years Have you smoked in the past 12 months: Yes Approximately how many cigarettes per day: pack Do you dip or chew tobacco: No Discharge Exam General Appearance: no apparent distress, cachetic, thin Neurologic Exam: alert, oriented x 3, cooperative Respiratory Exam: diminished breath sounds, prolonged expirations, rhonchi Cardiovascular Exam: regular rate/rhythm, normal heart sounds Gastrointestinal/Abdomen Exam: soft, No tenderness, No mass Extremity Exam: normal inspection, normal range of motion Skin Exam: normal color, warm, dry Final Diagnosis/Problem List - Final Discharge Diagnosis/Problem (1) COPD exacerbation Current Visit: Yes Status: Acute Assessment & Plan: home on po doxy and po prednisone taper, has nebulizers and supplies at home. Code(s): J44.1 - CHRONIC OBSTRUCTIVE PULMONARY DISEASE W (ACUTE) EXACERBATION - Discharge Disposition: Home, Self-Care Condition: Fair Prescriptions: New Prednisone 20 mg [Deltasone 20 mg] 20 mg PO UD #18 tablet Doxycycline Hyclate 100 mg PO BID #14 tablet Continue Meloxicam 7.5 mg [Mobic 7.5 MG] 7.5 mg PO HS Alendronate Sodium 70 mg [Fosamax 70 MG] 70 mg PO WEEKLY Albuterol Sulfate [Proventil Hfa] 2 puffs IH Q4-6HPRN PRN #2 [id number].[id number] PRN Reason: Shortness Of Breath Budesonide/Formoterol Fumarate [Symbicort 160-4.5 Mcg Inhaler] 1 puff IH BID Albuterol/Ipratropium 3ml Neb* [DUONEB 0.5-3 MG/3 ml Neb] 3 ml IH Q4-6HPRN PRN #100 ampul.neb PRN Reason: Cough Vit A/Vit C/Vit E/Zinc/Copper [Preservision Areds Softgel] 2 tab PO DAILY Budesonide [Pulmicort] 1 mg IH UD Acetaminophen 500 mg [Tylenol Extra Strength 500 mg] 1,000 mg PO DAILY Follow up with: SABINO TALBERT MD [Primary Care Provider] - 07/23/19 1:30 pm
[2019-07-16 09:15] LABS: ANION GAP 7.6 MEQ/L (5-15); BLOOD UREA NITROGEN 19 mg/dL (9-20); CHLORIDE 106 mmol/L (98-107); Calcium 7.8 mg/dL (8.4-10.2); Carbon Dioxide 26 mmol/L (22-30); Creatinine 1 0.39 mg/dL (0.66-1.25); Glucose 176 mg/dL (74-106); MAGNESIUM 2.1 mg/dL (1.6-2.3); Potassium 3.7 mmol/L (3.5-5.1); SODIUM 136 mmol/L (137-145)
[2019-07-16] MEDS: Ocuvite Tablet PO SCH (09:39)
[2019-07-16] MEDS: TYLENOL EXTRA STRENGTH 500 MG PO SCH (09:39)
[2019-07-16 10:12] LABS: ANISOCYTOSIS 1+; BAND 1 % (0.0-2.0); Lymphocytes 7 % (24-44); Monocyte 3 % (0.0-12.0); Neutrophils 89 % (36.-66.); Platelet Estimate NORMAL (NORMAL); Total Cells Counted 100; Toxic Granulation 1+
[2019-07-16 11:40] VITALS: BP 90/57; PULSE 116; O2SAT 95
[2019-07-19] MEDS ORDERED: Fosamax 70 MG PO SCH (22:00)
== END 2019-07-16 13:28 | disposition home or self-care (01) | DRG 190 ==
LOC: ED 17:07 → MED SURG 18:33 → OBSVTOIN 07-13 09:47
PROVIDERS: ADMIT Family Medicine; ATTEND Family Medicine
DX: J44.1 Chronic obstructive pulmonary disease with (acute) exacerbation (principal); J18.9 Pneumonia, unspecified organism; R09.02 Hypoxemia; I10 Essential (primary) hypertension; Z79.899 Other long term (current) drug therapy
CPT/HCPCS: 36415; 80048; 80053; 82375; 82803; 83605; 83735; 83880; 84134; 84484; 85025; 85027; 85610; 87040; 87631; 93005; 93041; 94150; 94640; 94760; 94762; 96374; 99291; G0378; 36000; 36600; 71045; 99285; J2920; J2930; A9270-GY

== ENCOUNTER 2020-02-12 17:29 | Inpatient (IN) | payer MEDICARE, OTHER ==
--- NOTE | 2020-02-12 17:45 | ERPHSYRPT ---
- History of Present Illness Time Seen by Provider: 02/12/20 17:50 Source: patient Exam Limitations: no limitations Physician History: Patient is an 89-year-old male with a history of COPD presents to our ED with shortness of breath wheezing. Symptoms similar to his previous COPD exacerbations. Symptoms started approximately 4 days ago. Patient was seen by his home health nurse. Patient was administered steroids. A chest x-ray was performed. Patient felt well. Patient is here if symptoms are worsening. No associated chest pain. No nausea or vomiting. No diaphoresis. No fever. No nausea or vomiting. No diarrhea. No rash. Symptoms are mild to moderate in intensity. No specific worsening or improving factors. Daughter at bedside. Patient and daughter voice no other complaints at this time. Timing/Duration: day(s) (4 days ago) Severity: moderate Modifying Factors: Improves With: nothing Associated Symptoms: shortness of breath, cough, No nausea, No vomiting, No abdominal pain, No heartburn, No diaphoresis, No chills, No chest pain, No fever, No headaches, No loss of appetite, No malaise, No rash, No syncope Allergies/Adverse Reactions: No Known Drug Allergies Allergy (Verified 02/12/20 18:03) Home Medications: Meloxicam 7.5 mg [Mobic 7.5 MG] 7.5 mg PO HS 12/23/16 [History] Alendronate Sodium 70 mg [Fosamax 70 MG] 70 mg PO WEEKLY 03/18/17 [History] Budesonide/Formoterol Fumarate [Symbicort 160-4.5 Mcg Inhaler] 1 puff IH BID 03/17/18 [History] Vit A/Vit C/Vit E/Zinc/Copper [Preservision Areds Softgel] 2 tab PO DAILY 11/04/18 [History] Acetaminophen 500 mg [Tylenol Extra Strength 500 mg] 1,000 mg PO DAILY 07/12/19 [History] Budesonide [Pulmicort] 1 mg IH UD 07/12/19 [History] Hx Tetanus, Diphtheria Vaccination/Date Given: No Hx Influenza Vaccination/Date Given: Yes Hx Pneumococcal Vaccination/Date Given: Yes - Review of Systems Constitutional: No Symptoms, Other (Patient is frail thin appearing. Per daughter no recent weight loss.), No Fever, No Chills Eyes: No Symptoms Ears, Nose, & Throat: No Symptoms Respiratory: Cough, Dyspnea, Wheezing, Other Cardiac: No Symptoms (Coarse breath sounds bilaterally.), No Chest Pain, No Edema, No Syncope Abdominal/Gastrointestinal: No Abdominal Pain, No Nausea, No Vomiting, No Diarrhea Genitourinary Symptoms: No Dysuria Musculoskeletal: No Back Pain, No Neck Pain Skin: No Rash Neurological: No Dizziness, No Focal Weakness, No Sensory Changes Psychological: No Symptoms Endocrine: No Symptoms All Other Systems: Reviewed and Negative - Past Medical History Pertinent Past Medical History: Yes Neurological History: No Pertinent History ENT History: Macular Degeneration Cardiac History: No Pertinent History Respiratory History: COPD, Emphysema, Pneumonia Endocrine Medical History: No Pertinent History Musculoskeletal History: Osteoarthritis GI Medical History: No Pertinent History History: No Pertinent History Psycho-Social History: No Pertinent History Male Reproductive Disorders: No Pertinent History Other Medical History: Arthritis in back - Past Surgical History Past Surgical History: Yes Neuro Surgical History: No Pertinent History Cardiac: No Pertinent History Respiratory: No Pertinent History Gastrointestinal: No Pertinent History Genitourinary: Other Musculoskeletal: Orthopedic Surgery Male Surgical History: Testicular Surgery Other Surgical History: states had testicle removed 60 years ago LLL FX repair. - Social History Smoking Status: Current every day smoker How long have you smoked: 75 years Exposure to second hand smoke: Yes Alcohol Use: None Drug Use: none Patient Lives Alone: No Significant Family History: no pertinent family hx - Nursing Vital Signs Nursing Vital Signs: Initial Vital Signs Temperature 98.0 F 02/12/20 17:40 Pulse Rate 85 02/12/20 17:40 Respiratory Rate 26 H 02/12/20 17:40 Blood Pressure 120/59 02/12/20 17:40 O2 Sat by Pulse Oximetry 99 02/12/20 17:40 Pain Scale Pain Intensity 0 - Physical Exam General Appearance: no apparent distress, alert, thin, other (Wheezing coarse breath sounds.) Eye Exam: PERRL/EOMI, eyes nml inspection Ears, Nose, Throat Exam: normal ENT inspection, TMs normal, pharynx normal, moist mucous membranes Neck Exam: normal inspection, non-tender, supple, full range of motion Respiratory Exam: respiratory distress, airway intact (Mild respiratory distress. Airway intact.), prolonged expirations, rhonchi, wheezing Cardiovascular Exam: regular rate/rhythm, normal heart sounds, normal peripheral pulses Gastrointestinal/Abdomen Exam: soft, normal bowel sounds, No tenderness, No mass Back Exam: normal inspection, normal range of motion, No CVA tenderness, No vertebral tenderness Extremity Exam: normal inspection, normal range of motion, pelvis stable Neurologic Exam: alert, oriented x 3, cooperative, normal mood/affect, nml cerebellar function, nml station & gait, sensation nml, No motor deficits Skin Exam: normal color, warm, dry, No rash Lymphatic Exam: No adenopathy SpO2 Interpretation: normal SpO2: 94 O2 Delivery: Room Air - Course Nursing assessment & vital signs reviewed: Yes EKG Interpreted by Me: RATE (68), A-fib, NORMAL AXIS, Left Bundle Branch Block - Radiology Exams Chest X-ray Interpretation: Interpreted by me Ordered Tests: Active Orders 24 hr Category Date Time Status Laborer Laboratory STAT Care 02/12/20 17:46 Active EKG-ER Only STAT Care 02/12/20 17:45 Active IV Insertion STAT Care 02/12/20 17:45 Active Pulse Oximetry (ED) STAT Care 02/12/20 17:45 Active CHEST 1 VIEW (PORTABLE) Stat Exams 02/12/20 17:46 Taken BLOOD CULTURE Stat Lab 02/12/20 18:15 Received CBC W DIFF Stat Lab 02/12/20 18:15 Completed CMP Stat Lab 02/12/20 18:15 Completed MAGNESIUM Stat Lab 02/12/20 18:15 Completed Manual Differential NC Stat Lab 02/12/20 18:15 Completed NT PRO BNP Stat Lab 02/12/20 18:15 Completed TROPONIN Q3H Lab 02/12/20 18:22 Completed TROPONIN Q3H Lab 02/12/20 21:00 Ordered TROPONIN Q3H Lab 02/13/20 00:00 Ordered TROPONIN Q3H Lab 02/13/20 03:00 Ordered TROPONIN Q3H Lab 02/13/20 06:00 Ordered UA W/RFX UR CULTURE Stat Lab 02/12/20 17:46 Uncollected Transfer Order Routine Transfer 02/12/20 Ordered Medication Summary Generic Name Dose Route Start Last Admin Trade Name Freq PRN Reason Stop Dose Admin Ceftriaxone Sodium/Dextrose 2 g in 50 mls @ 100 mls/hr 02/12/20 19:35 Rocephin 2 Gm-D5w 50ml Bag IV 02/12/20 20:04 STAT STA Azithromycin / Sodium Chloride 250 mls @ 125 mls/hr 02/12/20 19:35 IV 02/12/20 21:34 STAT ONE Discontinued Medications Generic Name Dose Route Start Last Admin Trade Name eTresa PRN Reason Stop Dose Admin Albuterol/Ipratropium 3 ml 02/12/20 19:34 Duoneb 0.5-3 Mg/3 Ml Neb IH 02/12/20 19:35 STAT ONE Methylprednisolone Sodium Succinate 125 mg 02/12/20 19:34 Solu-Medrol 125 Mg IV 02/12/20 19:35 STAT ONE Lab/Rad Data: Laboratory Result Diagrams 02/12/20 18:15 02/12/20 18:15 Laboratory Results 02/12/20 02/12/20 02/12/20 Range/Units 18:22 18:21 18:15 WBC (4.0-10.5) K/mm3 RBC (4.1-5.6) M/mm3 Hgb (12.5-18.0) gm/dl Hct (42-50) % MCV (78-100) fl MCH (26-32) pg MCHC (32-36) g/dl RDW (11.5-14.0) % Plt Count (150-450) K/mm3 MPV (7.5-11.0) fl Segmented Neutrophils (36.-66.) % Lymphocytes (Manual) (24-44) % Monocytes (Manual) (0.0-12.0) % Eosinophils (Manual) (0.00-3.0) % Atypical Lymphocytes % Hypochromia Platelet Estimate (NORMAL) RBC Morphology Basophilic Stippling Sodium 136 L (137-145) mmol/L Potassium 5.1 (3.5-5.1) mmol/L Chloride 102 (98-107) mmol/L Carbon Dioxide 32 H (22-30) mmol/L Anion Gap 6.7 (5-15) MEQ/L BUN 23 H (9-20) mg/dL Creatinine 0.67 (0.66-1.25) mg/dL Estimated GFR > 60.0 ML/MIN Glucose 109 H (74-106) mg/dL Calcium 8.7 (8.4-10.2) mg/dL Magnesium 2.3 (1.6-2.3) mg/dL Total Bilirubin 0.20 (0.2-1.3) mg/dL AST 22 (17-59) U/L ALT 12 (0-50) U/L Alkaline Phosphatase 105 (38-126) U/L Troponin I < 0.012 (0.000-0.034) ng/mL NT-Pro-B Natriuret Pep 966 (0-1800) pg/mL Serum Total Protein 6.1 L (6.3-8.2) g/dL Albumin 3.7 (3.5-5.0) g/dL Influenza Type A Ag NEGATIVE (NEGATIVE) Influenza Type B Ag NEGATIVE (NEGATIVE) RSV (PCR) NEGATIVE (Negative) SARS-CoV-2 (PCR) NEGATIVE (NEGATIVE) 02/12/20 Range/Units 18:15 WBC 9.2 (4.0-10.5) K/mm3 RBC 3.54 L (4.1-5.6) M/mm3 Hgb 10.5 L (12.5-18.0) gm/dl Hct 34.8 L (42-50) % MCV 98.3 (78-100) fl MCH 29.7 (26-32) pg MCHC 30.2 L (32-36) g/dl RDW 17.9 H (11.5-14.0) % Plt Count 300 (150-450) K/mm3 MPV 8.8 (7.5-11.0) fl Segmented Neutrophils 74 H (36.-66.) % Lymphocytes (Manual) 12 L (24-44) % Monocytes (Manual) 6 (0.0-12.0) % Eosinophils (Manual) 4 H (0.00-3.0) % Atypical Lymphocytes 4 % Hypochromia 1+ Platelet Estimate NORMAL (NORMAL) RBC Morphology ABNORMAL Basophilic Stippling 1+ Sodium (137-145) mmol/L Potassium (3.5-5.1) mmol/L Chloride (98-107) mmol/L Carbon Dioxide (22-30) mmol/L Anion Gap (5-15) MEQ/L BUN (9-20) mg/dL Creatinine (0.66-1.25) mg/dL Estimated GFR ML/MIN Glucose (74-106) mg/dL Calcium (8.4-10.2) mg/dL Magnesium (1.6-2.3) mg/dL Total Bilirubin (0.2-1.3) mg/dL AST (17-59) U/L ALT (0-50) U/L Alkaline Phosphatase (38-126) U/L Troponin I (0.000-0.034) ng/mL NT-Pro-B Natriuret Pep (0-1800) pg/mL Serum Total Protein (6.3-8.2) g/dL Albumin (3.5-5.0) g/dL Influenza Type A Ag (NEGATIVE) Influenza Type B Ag (NEGATIVE) RSV (PCR) (Negative) SARS-CoV-2 (PCR) (NEGATIVE) - Progress Progress: improved Progress Note: 02/12/20 19:50 Patient reassessed. Symptoms improved. Patient breathing easier. Less wheezing. Patient appears to be experiencing a recurrence of a COPD exacerbation. Chest x-ray negative for pneumonia. Patient received Solu-Medrol antibiotics and nebulizer treatment. Will admit for further evaluation and treatment. Case discussed with Dr. Talbert who accepts admission to observation. Plan of care discussed with patient and family. They agree to admission to [facility] for further evaluation and treatment. Discussed with .: Marifer Will see patient in: hospital (observation) Counseled pt/family regarding: lab results, diagnosis, rad results - Departure Departure Disposition: Observation Clinical Impression: COPD exacerbation, Shortness of breath, Dehydration, Normocytic anemia Condition: Stable Critical Care Time: No Referrals: SABINO TALBERT MD [Primary Care Provider] - Instructions: Chronic Obstructive Pulmonary Disease
[2020-02-12 18:28] LABS: Hematocrit 34.8 % (42-50); Hemoglobin 10.5 gm/dl (12.5-18.0); Mean Cell Volume 98.3 fl (78-100); Mean Corpuscular Hemoglobin 29.7 pg (26-32); Mean Corpuscular Hgb Concent. 30.2 g/dl (32-36); Mean Platelet Volume 8.8 fl (7.5-11.0); Platelet Count 300 K/mm3 (150-450); Red Blood Count 3.54 M/mm3 (4.1-5.6); Red Cell Distribution Width 17.9 % (11.5-14.0); White Blood Count 9.2 K/mm3 (4.0-10.5)
[2020-02-12 18:49] LABS: ALBUMIN 3.7 g/dL (3.5-5.0); ALKALINE PHOSPHATASE 105 U/L (38-126); ANION GAP 6.7 MEQ/L (5-15); BLOOD UREA NITROGEN 23 mg/dL (9-20); CHLORIDE 102 mmol/L (98-107); Calcium 8.7 mg/dL (8.4-10.2); Carbon Dioxide 32 mmol/L (22-30); Creatinine 1 0.67 mg/dL (0.66-1.25); EST GLOMERULAR FILTRATION RATE > 60.0 ML/MIN; Glucose 109 mg/dL (74-106); MAGNESIUM 2.3 mg/dL (1.6-2.3); NT PRO BNP 966 pg/mL (0-1800); Potassium 5.1 mmol/L (3.5-5.1); SGOT/AST 22 U/L (17-59); SGPT/ALT 12 U/L (0-50); SODIUM 136 mmol/L (137-145); Total Protein 6.1 g/dL (6.3-8.2)
[2020-02-12 19:06] LABS: INFLUENZA A NEGATIVE (NEGATIVE); INFLUENZA B NEGATIVE (NEGATIVE); RESPIRATORY SYNCTIAL VIRUS NEGATIVE (Negative)
[2020-02-12 19:24] LABS: ATYPICAL LYMPHS 4 %; Eosinophil 4 % (0.00-3.0); Hypochromia 1+; Lymphocytes 12 % (24-44); Monocyte 6 % (0.0-12.0); Neutrophils 74 % (36.-66.); Platelet Estimate NORMAL (NORMAL); Total Cells Counted 100
[2020-02-12 19:25] LABS: Basophilic Stippling 1+
[2020-02-12] MEDS ORDERED: DUONEB 0.5-3 MG/3 ml Neb IH ONE ×3 (19:34→23:39)
[2020-02-12] MEDS ORDERED: solu-MEDROL 125 MG IV ONE (19:34)
[2020-02-12] MEDS ORDERED: ZITHROMAX IV 500 MG*** 500 MG in Sodium Chloride 0.9% 250 ML 250 ML IV ONE (19:35)
[2020-02-12] MEDS ORDERED: ROCEPHIN 2 Gm-D5w 50ML BAG** 2 G/50 ML IVPB IV STA (19:35)
[2020-02-12] MEDS ORDERED: ROCEPHIN 2 Gm-D5w 50ML BAG** 2 G/50 ML IVPB IV ONE (19:54)
[2020-02-12] MEDS ORDERED: solu-MEDROL 125 MG ONE (19:54)
[2020-02-12 20:26] LABS: Appearance CLEAR (CLEAR); Bacteria FEW /HPF (NEGATIVE); Bilirubin NEGATIVE (NEGATIVE); Blood MODERATE Ery/ul (0-5); Glucose NEGATIVE (NEGATIVE); Ketones NEGATIVE (NEGATIVE); Leukocyte Esterase LARGE (NEGATIVE); Mucus SLIGHT /HPF (NEGATIVE); Nitrite NEGATIVE (NEGATIVE); Protein,Urine Dip NEGATIVE (Negative); Specific Gravity 1.017 (1.005-1.025); Urobilinogen NEGATIVE mg/dL (0-1); WBC 26-50 /HPF (0-5)
[2020-02-12 20:27] LABS: RBC >101 /HPF (0-2)
[2020-02-12] MEDS: Sodium Chloride 0.9% 1000 ML 1,000 ML IV SCH (21:30)
[2020-02-12] MEDS: DUONEB 0.5-3 MG/3 ml Neb IH PRN (23:42)
[2020-02-13] MEDS: solu-MEDROL 125 MG IV SCH ×4 (00:17→17:13)
[2020-02-13 05:01] LABS: Hematocrit 30.3 % (42-50); Hemoglobin 9.3 gm/dl (12.5-18.0); Mean Cell Volume 98.1 fl (78-100); Mean Corpuscular Hemoglobin 30.1 pg (26-32); Mean Corpuscular Hgb Concent. 30.7 g/dl (32-36); Mean Platelet Volume 9.1 fl (7.5-11.0); Platelet Count 269 K/mm3 (150-450); Red Blood Count 3.09 M/mm3 (4.1-5.6); Red Cell Distribution Width 17.4 % (11.5-14.0); White Blood Count 8.1 K/mm3 (4.0-10.5)
[2020-02-13 05:20] LABS: ALBUMIN 3.2 g/dL (3.5-5.0); ALKALINE PHOSPHATASE 96 U/L (38-126); ANION GAP 9.4 MEQ/L (5-15); BLOOD UREA NITROGEN 18 mg/dL (9-20); CHLORIDE 99 mmol/L (98-107); Calcium 7.8 mg/dL (8.4-10.2); Carbon Dioxide 26 mmol/L (22-30); EST GLOMERULAR FILTRATION RATE > 60.0 ML/MIN; Glucose 235 mg/dL (74-106); Potassium 4.5 mmol/L (3.5-5.1); SGOT/AST 29 U/L (17-59); SGPT/ALT 14 U/L (0-50); SODIUM 130 mmol/L (137-145); Total Protein 5.5 g/dL (6.3-8.2)
[2020-02-13] MEDS: DUONEB 0.5-3 MG/3 ml Neb IH SCH ×4 (07:14→18:40)
[2020-02-13] MEDS: Advair Hfa 115/21 Common canister IH SCH ×2 (07:16→18:41)
--- NOTE | 2020-02-13 08:12 | PCM.HP ---
History of Present Illness - Chief Complaint Chief Complaint: COPD History of Present Illness: is a 89 year old male with advanced copd, he is wheelchair bound from prior hip fracture and generalized decline from advanced copd, he presented with increasing shortness of breath, cough and wheezing typical for exacerbation. his cough has not been productive, no fever. - Review of Systems Constitutional: Weakness Respiratory: Cough, Short Of Breath Cardiac: No Chest Pain, No Edema, No Syncope Musculoskeletal: Back Pain, Joint Pain Skin: No Rash All Other Systems: Reviewed and Negative Medications & Allergies Home Medications: Home Medication List Meloxicam 7.5 mg [Mobic 7.5 MG] 7.5 mg PO HS 12/23/16 [History Confirmed 02/12/20] Alendronate Sodium 70 mg [Fosamax 70 MG] 70 mg PO WEEKLY 03/18/17 [History Confirmed 02/12/20] Albuterol Sulfate [Proventil Hfa] 2 puffs IH Q4-6HPRN PRN #2 [id number] 03/22/17 [Rx Confirmed 02/12/20] Budesonide/Formoterol Fumarate [Symbicort 160-4.5 Mcg Inhaler] 1 puff IH BID 03/17/18 [History Confirmed 02/12/20] Albuterol/Ipratropium 3ml Neb* [DUONEB 0.5-3 MG/3 ml Neb] 3 ml IH Q4-6HPRN PRN #100 ampul.neb 03/27/18 [Rx Confirmed 02/12/20] Vit A/Vit C/Vit E/Zinc/Copper [Preservision Areds Softgel] 2 tab PO DAILY 11/04/18 [History Confirmed 02/12/20] Acetaminophen 500 mg [Tylenol Extra Strength 500 mg] 1,000 mg PO DAILY 07/12/19 [History Confirmed 02/12/20] Budesonide [Pulmicort] 1 mg IH UD 07/12/19 [History Confirmed 02/12/20] Allergies/Adverse Reactions: Allergies Allergy/AdvReac Type Severity Reaction Status Date / Time No Known Drug Allergies Allergy Verified 02/12/20 18:03 - Past Medical History Past Medical History: Yes Neurological History: No Pertinent History ENT History: Macular Degeneration Cardiac History: No Pertinent History Respiratory History: COPD, Emphysema, Pneumonia Endocrine Medical History: No Pertinent History Musculoskelatal History: Osteoarthritis GI Medical History: No Pertinent History History: No Pertinent History Pyscho-Social History: No Pertinent History Male Reproductive Disorders: No Pertinent History Comment: Arthritis in back - Past Surgical History Past Surgical History: Yes Neuro Surgical History: No Pertinent History Cardiac History: No Pertinent History Respiratory Surgery: No Pertinent History GI Surgical History: No Pertinent History Genitourinary Surgical Hx: Other Musculskeletal Surgical Hx: Orthopedic Surgery Male Surgical History: Testicular Surgery Other Surgical History: states had testicle removed 60 years ago LLL FX repair 3 years ago. - Social History Smoking Status: Current every day smoker How long have you smoked: 75 years Exposure to second hand smoke: Yes Alcohol: Rarely Drug Use: none Significant Family History: no pertinent family hx - Physical Exam Vital Signs: Vital Signs - 24 hr Temp Pulse Resp BP Pulse Ox 02/13/20 07:25 98.3 F 68 18 165/89 98 02/13/20 07:10 80 18 92 L 02/13/20 04:00 98.1 F 78 20 119/57 93 L 02/13/20 00:21 77 22 93 L 02/13/20 00:00 98.1 F 88 23 107/59 93 L 02/12/20 20:43 97.8 F 80 18 90/53 94 L 02/12/20 20:17 82 22 98 02/12/20 20:04 82 28 H 141/71 98 02/12/20 19:57 94 L 02/12/20 19:54 64 19 125/71 96 02/12/20 18:31 97 H 16 02/12/20 18:21 96 02/12/20 17:40 98.0 F 85 26 H 120/59 99 General Appearance: mild distress, cachetic, thin Neurologic Exam: alert, oriented x 3, other (very hard of hearing) Respiratory Exam: accessory muscle use, prolonged expirations, wheezing Cardiovascular Exam: regular rate/rhythm, normal heart sounds, normal peripheral pulses Gastrointestinal/Abdomen Exam: soft, normal bowel sounds, No tenderness, No mass Extremity Exam: other (thin/emaciated lower extremities) Wound Assessment: Skin/Wound Assessment Wound/Incision Assessment Start: 02/12/20 21:41 Text: Status: Active Freq: Q6H Protocol: Document 02/13/20 03:41 KX (Rec: 02/13/20 04:00 KX [id number]) Wound/Incision Assessment Lower Back Wound Assessment Admission Wound Type Pressure Ulcer Wound Stage Stage I Dressing Status Dry & Intact Drainage Amount None Length (cm) (cm) 0.5 Width (cm) (cm) 0.5 Surrounding Tissue [place] Comment Open area to lower bony spine. Shear vs pressure. Barrier cream applied. Left Posterior Back Wound Assessment Admission Wound Type Pressure Ulcer Wound Stage Stage I Dressing Status Dry & Intact Drainage Amount None General Appearance Reddened Length (cm) (cm) 1.5 Width (cm) (cm) 1.5 Surrounding Tissue [place] Comment non blancheable area noted to left mid back area. Barrier cream applied. Wound Photo Photo Taken Yes Date: 02/13/20 Time: 04:00 Results - Labs Lab/Micro Results: Lab Results-Last 24 Hours 02/12/20 02/12/20 02/12/20 Range/Units 18:15 18:15 18:21 WBC 9.2 (4.0-10.5) K/mm3 RBC 3.54 L (4.1-5.6) M/mm3 Hgb 10.5 L (12.5-18.0) gm/dl Hct 34.8 L (42-50) % MCV 98.3 (78-100) fl MCH 29.7 (26-32) pg MCHC 30.2 L (32-36) g/dl RDW 17.9 H (11.5-14.0) % Plt Count 300 (150-450) K/mm3 MPV 8.8 (7.5-11.0) fl Segmented Neutrophils 74 H (36.-66.) % Lymphocytes (Manual) 12 L (24-44) % Monocytes (Manual) 6 (0.0-12.0) % Eosinophils (Manual) 4 H (0.00-3.0) % Atypical Lymphocytes 4 % Hypochromia 1+ Platelet Estimate NORMAL (NORMAL) RBC Morphology ABNORMAL Basophilic Stippling 1+ Sodium 136 L (137-145) mmol/L Potassium 5.1 (3.5-5.1) mmol/L Chloride 102 (98-107) mmol/L Carbon Dioxide 32 H (22-30) mmol/L Anion Gap 6.7 (5-15) MEQ/L BUN 23 H (9-20) mg/dL Creatinine 0.67 (0.66-1.25) mg/dL Estimated GFR > 60.0 ML/MIN Glucose 109 H (74-106) mg/dL Calcium 8.7 (8.4-10.2) mg/dL Magnesium 2.3 (1.6-2.3) mg/dL Total Bilirubin 0.20 (0.2-1.3) mg/dL AST 22 (17-59) U/L ALT 12 (0-50) U/L Alkaline Phosphatase 105 (38-126) U/L Troponin I (0.000-0.034) ng/mL NT-Pro-B Natriuret Pep 966 (0-1800) pg/mL Serum Total Protein 6.1 L (6.3-8.2) g/dL Albumin 3.7 (3.5-5.0) g/dL Prealbumin (17.6-36.0) mg/dL Urine Color (YELLOW) Urine Appearance (CLEAR) Urine pH (5-6) Ur Specific [place] (1.005-1.025) Urine Protein (Negative) Urine Ketones (NEGATIVE) Urine Blood (0-5) Zeferino/ul Urine Nitrite (NEGATIVE) Urine Bilirubin (NEGATIVE) Urine Urobilinogen (0-1) mg/dL Ur Leukocyte Esterase (NEGATIVE) Urine WBC (Auto) (0-5) /HPF Urine RBC (Auto) (0-2) /HPF U Hyaline Cast (Auto) (0-2) /LPF U Epithel Cells (Auto) (FEW) /HPF Urine Bacteria (Auto) (NEGATIVE) /HPF Urine Mucus (Auto) (NEGATIVE) /HPF Urine Culture Reflexed (NO) Urine Glucose (NEGATIVE) mg/dL Influenza Type A Ag NEGATIVE (NEGATIVE) Influenza Type B Ag NEGATIVE (NEGATIVE) RSV (PCR) NEGATIVE (Negative) SARS-CoV-2 (PCR) NEGATIVE (NEGATIVE) 02/12/20 02/12/20 02/12/20 Range/Units 18:22 20:00 21:10 WBC (4.0-10.5) K/mm3 RBC (4.1-5.6) M/mm3 Hgb (12.5-18.0) gm/dl Hct (42-50) % MCV (78-100) fl MCH (26-32) pg MCHC (32-36) g/dl RDW (11.5-14.0) % Plt Count (150-450) K/mm3 MPV (7.5-11.0) fl Segmented Neutrophils (36.-66.) % Lymphocytes (Manual) (24-44) % Monocytes (Manual) (0.0-12.0) % Eosinophils (Manual) (0.00-3.0) % Atypical Lymphocytes % Hypochromia Platelet Estimate (NORMAL) RBC Morphology Basophilic Stippling Sodium (137-145) mmol/L Potassium (3.5-5.1) mmol/L Chloride (98-107) mmol/L Carbon Dioxide (22-30) mmol/L Anion Gap (5-15) MEQ/L BUN (9-20) mg/dL Creatinine (0.66-1.25) mg/dL Estimated GFR ML/MIN Glucose (74-106) mg/dL Calcium (8.4-10.2) mg/dL Magnesium (1.6-2.3) mg/dL Total Bilirubin (0.2-1.3) mg/dL AST (17-59) U/L ALT (0-50) U/L Alkaline Phosphatase (38-126) U/L Troponin I < 0.012 (0.000-0.034) ng/mL NT-Pro-B Natriuret Pep (0-1800) pg/mL Serum Total Protein (6.3-8.2) g/dL Albumin (3.5-5.0) g/dL Prealbumin 13.73 L (17.6-36.0) mg/dL Urine Color YELLOW (YELLOW) Urine Appearance CLEAR (CLEAR) Urine pH 6.0 (5-6) Ur Specific [place] 1.017 (1.005-1.025) Urine Protein NEGATIVE (Negative) Urine Ketones NEGATIVE (NEGATIVE) Urine Blood MODERATE (0-5) Zeferino/ul Urine Nitrite NEGATIVE (NEGATIVE) Urine Bilirubin NEGATIVE (NEGATIVE) Urine Urobilinogen NEGATIVE (0-1) mg/dL Ur Leukocyte Esterase LARGE (NEGATIVE) Urine WBC (Auto) 26-50 (0-5) /HPF Urine RBC (Auto) >101 (0-2) /HPF U Hyaline Cast (Auto) 6-10 (0-2) /LPF U Epithel Cells (Auto) NONE (FEW) /HPF Urine Bacteria (Auto) FEW (NEGATIVE) /HPF Urine Mucus (Auto) SLIGHT (NEGATIVE) /HPF Urine Culture Reflexed YES (NO) Urine Glucose NEGATIVE (NEGATIVE) mg/dL Influenza Type A Ag (NEGATIVE) Influenza Type B Ag (NEGATIVE) RSV (PCR) (Negative) SARS-CoV-2 (PCR) (NEGATIVE) 02/12/20 02/13/20 02/13/20 Range/Units 21:15 04:41 04:41 WBC 8.1 (4.0-10.5) K/mm3 RBC 3.09 L (4.1-5.6) M/mm3 Hgb 9.3 L (12.5-18.0) gm/dl Hct 30.3 L (42-50) % MCV 98.1 (78-100) fl MCH 30.1 (26-32) pg MCHC 30.7 L (32-36) g/dl RDW 17.4 H (11.5-14.0) % Plt Count 269 (150-450) K/mm3 MPV 9.1 (7.5-11.0) fl Segmented Neutrophils (36.-66.) % Lymphocytes (Manual) (24-44) % Monocytes (Manual) (0.0-12.0) % Eosinophils (Manual) (0.00-3.0) % Atypical Lymphocytes % Hypochromia Platelet Estimate (NORMAL) RBC Morphology Basophilic Stippling Sodium 130 L (137-145) mmol/L Potassium 4.5 (3.5-5.1) mmol/L Chloride 99 (98-107) mmol/L Carbon Dioxide 26 (22-30) mmol/L Anion Gap 9.4 (5-15) MEQ/L BUN 18 (9-20) mg/dL Creatinine 0.50 L (0.66-1.25) mg/dL Estimated GFR > 60.0 ML/MIN Glucose 235 H (74-106) mg/dL Calcium 7.8 L (8.4-10.2) mg/dL Magnesium (1.6-2.3) mg/dL Total Bilirubin 0.20 (0.2-1.3) mg/dL AST 29 (17-59) U/L ALT 14 (0-50) U/L Alkaline Phosphatase 96 (38-126) U/L Troponin I < 0.012 (0.000-0.034) ng/mL NT-Pro-B Natriuret Pep (0-1800) pg/mL Serum Total Protein 5.5 L (6.3-8.2) g/dL Albumin 3.2 L (3.5-5.0) g/dL Prealbumin (17.6-36.0) mg/dL Urine Color (YELLOW) Urine Appearance (CLEAR) Urine pH (5-6) Ur Specific [place] (1.005-1.025) Urine Protein (Negative) Urine Ketones (NEGATIVE) Urine Blood (0-5) Zeferino/ul Urine Nitrite (NEGATIVE) Urine Bilirubin (NEGATIVE) Urine Urobilinogen (0-1) mg/dL Ur Leukocyte Esterase (NEGATIVE) Urine WBC (Auto) (0-5) /HPF Urine RBC (Auto) (0-2) /HPF U Hyaline Cast (Auto) (0-2) /LPF U Epithel Cells (Auto) (FEW) /HPF Urine Bacteria (Auto) (NEGATIVE) /HPF Urine Mucus (Auto) (NEGATIVE) /HPF Urine Culture Reflexed (NO) Urine Glucose (NEGATIVE) mg/dL Influenza Type A Ag (NEGATIVE) Influenza Type B Ag (NEGATIVE) RSV (PCR) (Negative) SARS-CoV-2 (PCR) (NEGATIVE) Microbiology 02/12/20 20:00 Urine Culture - Preliminary Urine, Void <10K NORMAL SKIN DERRELL PROBABLE SKIN CONTAMINANT - Radiology Impressions Radiology Exams & Impressions: Radiology Procedures Category Date Time Status CHEST 1 VIEW (PORTABLE) Stat Exams 02/12/20 17:46 Taken - Other Procedures and Tests Respiratory Therapy 02/12/20 20:17 Respiratory Therapy Assessment DAILY Assessment/Plan (1) COPD exacerbation Current Visit: Yes Status: Acute Assessment & Plan: nebs, IV solu medrol 60mg IV q6 hrs and rocephin/zithromax ordered. Code(s): J44.1 - CHRONIC OBSTRUCTIVE PULMONARY DISEASE W (ACUTE) EXACERBATION (2) Acute on chronic respiratory failure with hypoxemia Current Visit: Yes Status: Acute Code(s): J96.21 - ACUTE AND CHRONIC RESPIRATORY FAILURE WITH HYPOXIA
--- NOTE | 2020-02-13 08:58 | XRAY ---
Indication: Short of breath. Comparison: July 12, 2019. Portable chest again demonstrates COPD without focal infiltrate, consolidation, or large effusion. Heart is not enlarged with stable mediastinal calcified nodes. Bony thorax intact again with osteopenia and degenerative changes. Impression: Continued nonacute chest with chronic features.
[2020-02-13] MEDS ORDERED: NON-FORMULARY ITEM (Budesonide/Formoterol Fumarate [Symbicort 160-4.5 Mcg Inhaler] 1 PUFF) IH SCH (10:00)
[2020-02-13] MEDS: ROCEPHIN 1 Gm-D5w 50 ml Bag** 1 G/50 ML IVPB IV SCH (10:23)
[2020-02-13] MEDS: Zithromax 500 MG/ 250 ML NaCl Premix 500 MG/250 ML IVPB IV SCH (10:46)
[2020-02-13] MEDS: Sodium Chloride 0.9% 1000 ML 1,000 ML IV SCH (16:53)
[2020-02-14] MEDS: DUONEB 0.5-3 MG/3 ml Neb IH PRN ×2 (00:25→22:14)
[2020-02-14] MEDS: solu-MEDROL 125 MG IV SCH ×5 (00:39→23:58)
[2020-02-14 06:42] LABS: Hematocrit 27.9 % (42-50); Hemoglobin 8.8 gm/dl (12.5-18.0); Mean Cell Volume 96.2 fl (78-100); Mean Corpuscular Hemoglobin 30.3 pg (26-32); Mean Corpuscular Hgb Concent. 31.5 g/dl (32-36); Mean Platelet Volume 9.5 fl (7.5-11.0); Platelet Count 259 K/mm3 (150-450); Red Cell Distribution Width 17.4 % (11.5-14.0); White Blood Count 8.4 K/mm3 (4.0-10.5)
[2020-02-14] MEDS: DUONEB 0.5-3 MG/3 ml Neb IH SCH ×4 (06:42→19:42)
[2020-02-14] MEDS: Advair Hfa 115/21 Common canister IH SCH ×2 (06:43→19:42)
[2020-02-14 06:46] LABS: ANION GAP 6.4 MEQ/L (5-15); BLOOD UREA NITROGEN 16 mg/dL (9-20); CHLORIDE 102 mmol/L (98-107); Calcium 7.7 mg/dL (8.4-10.2); Carbon Dioxide 28 mmol/L (22-30); Creatinine 1 0.47 mg/dL (0.66-1.25); EST GLOMERULAR FILTRATION RATE > 60.0 ML/MIN; Glucose 127 mg/dL (74-106); Potassium 4.4 mmol/L (3.5-5.1); SODIUM 132 mmol/L (137-145)
[2020-02-14 07:10] LABS: Lymphocytes 2 % (24-44); Neutrophils 98 % (36.-66.); Total Cells Counted 100
[2020-02-14 07:11] LABS: Platelet Estimate NORMAL (NORMAL)
[2020-02-14] MEDS: ROCEPHIN 1 Gm-D5w 50 ml Bag** 1 G/50 ML IVPB IV SCH (10:22)
[2020-02-14] MEDS: Zithromax 500 MG/ 250 ML NaCl Premix 500 MG/250 ML IVPB IV SCH (11:25)
--- NOTE | 2020-02-14 16:15 | PCM.NOTE ---
Date and Time: 02/14/20 1615 Objective Exam Wound Assessment: Skin/Wound Assessment Wound/Incision Assessment Start: 02/12/20 21:41 Text: Status: Active Freq: Q6H Protocol: Document 02/14/20 15:00 [email or web address] (Rec: 02/14/20 15:25 [email or web address] [id number]) Wound/Incision Assessment Lower Back Wound Assessment Shift Assessment Wound Type Pressure Ulcer Wound Stage Stage I Dressing Status Dry & Intact Drainage Amount None Length (cm) (cm) 0.5 Width (cm) (cm) 0.5 Surrounding Tissue [place] Comment Open area to lower bony spine. Shear vs pressure. Barrier cream applied. hx of redness to coccyx. open area to mid back 0.5, left mid to upper back area of redness that does not samy 1.5. . barrier cream applied to both areas. numerous open areas to right leg measuring from 0.1 to 1.5cm. Remains True Left Posterior Back Wound Assessment Shift Assessment Wound Type Pressure Ulcer Wound Stage Stage I Dressing Status Dry & Intact Drainage Amount None General Appearance Reddened Length (cm) (cm) 1.5 Width (cm) (cm) 1.5 Surrounding Tissue [place] Comment non blanchable area noted to left mid back area. Barrier cream applied. Wound Photo Photo Taken No OBJECTIVE DATA Vital Signs: Vital Signs - 24 hr Temp Pulse Resp BP Pulse Ox 02/14/20 14:45 91 H 18 93 L 02/14/20 12:00 97.9 F 92 H 17 86/53 86 L 02/14/20 10:34 92 H 18 93 L 02/14/20 07:43 98.1 F 95 H 17 127/61 88 L 02/14/20 06:45 97 H 20 88 L 02/14/20 04:21 98.2 F 70 20 123/58 92 L 02/14/20 00:31 91 H 26 H 93 L 02/14/20 00:00 98.1 F 95 H 20 124/75 94 L 02/13/20 19:50 98.2 F 99 H 20 128/69 96 02/13/20 18:44 69 26 H 96 Pain Assessment - Last Documented Pain Intensity 0 Intake and Output: Intake & Output 02/12/20 02/13/20 02/14/20 02/15/20 11:59 11:59 11:59 11:59 Intake Total 1345 2638 Output Total 329 1050 Balance 1095 1588 Weight 51.4 kg 49 kg Lab Results: Lab Results-Last 24 Hours 02/14/20 02/14/20 Range/Units 05:45 05:45 WBC 8.4 (4.0-10.5) K/mm3 RBC 2.90 L (4.1-5.6) M/mm3 Hgb 8.8 L (12.5-18.0) gm/dl Hct 27.9 L (42-50) % MCV 96.2 (78-100) fl MCH 30.3 (26-32) pg MCHC 31.5 L (32-36) g/dl RDW 17.4 H (11.5-14.0) % Plt Count 259 (150-450) K/mm3 MPV 9.5 (7.5-11.0) fl Segmented Neutrophils 98 H (36.-66.) % Lymphocytes (Manual) 2 L (24-44) % Platelet Estimate NORMAL (NORMAL) RBC Morphology NORMAL Sodium 132 L (137-145) mmol/L Potassium 4.4 (3.5-5.1) mmol/L Chloride 102 (98-107) mmol/L Carbon Dioxide 28 (22-30) mmol/L Anion Gap 6.4 (5-15) MEQ/L BUN 16 (9-20) mg/dL Creatinine 0.47 L (0.66-1.25) mg/dL Estimated GFR > 60.0 ML/MIN Glucose 127 H (74-106) mg/dL Calcium 7.7 L (8.4-10.2) mg/dL Radiology Exams: Radiology Procedures Category Date Time Status CHEST 1 VIEW (PORTABLE) Stat Exams 02/12/20 17:46 Completed
[2020-02-14] MEDS: Sodium Chloride 0.9% 1000 ML 1,000 ML IV SCH (16:38)
[2020-02-14] MEDS ORDERED: VENTOLIN COMMON CANISTER IH PRN (17:48)
[2020-02-15] MEDS: DUONEB 0.5-3 MG/3 ml Neb IH PRN ×2 (04:13→23:21)
[2020-02-15] MEDS: solu-MEDROL 125 MG IV SCH ×4 (05:23→23:37)
[2020-02-15] MEDS: DUONEB 0.5-3 MG/3 ml Neb IH SCH ×4 (06:50→19:34)
[2020-02-15] MEDS: Advair Hfa 115/21 Common canister IH SCH ×2 (06:52→19:34)
[2020-02-15] MEDS: ROCEPHIN 1 Gm-D5w 50 ml Bag** 1 G/50 ML IVPB IV SCH (11:15)
[2020-02-15] MEDS: Mucinex 600MG ER Tabs PO SCH ×2 (12:12→21:36)
[2020-02-15] MEDS: Zithromax 500 MG/ 250 ML NaCl Premix 500 MG/250 ML IVPB IV SCH (12:13)
[2020-02-15] MEDS: NICOTINE PATCH 7MG TD SCH (13:42)
--- NOTE | 2020-02-15 18:08 | PCM.NOTE ---
Date and Time: 02/15/201802 Subjective Assessment: 89 yr old male seen and examined this morning. Patient reports he feels a little better than yesterday. Patient reports he is short of breath and that he still has a productive cough. He wants to smoke so he can clear his lungs. He is not on oxygen at home. He reports good appetite. Patient reports that he continues to choke on his food. He reports he would be ok to with a the lowest dose nicotine patch. Patient wants to go home as soon as possible. He reports his ear has been sore and that is why he is not wearing his hearing aide. - Review of Systems Constitutional: No Fever Eyes: No Symptoms Ears, Nose, & Throat: Ear Pain (R EC), Hearing Changes, Other (Choking) Respiratory: Cough, Short Of Breath Cardiac: Orthopnea, No Edema Abdominal/Gastrointestinal: No Abdominal Pain, No Nausea, No Vomiting, No Diarrhea, No Constipation, No Appetite Changes Skin: Other (skin tears lower extremities bilaterally ) Neurological: No Symptoms Objective Exam General Appearance: moderate distress, thin (cachetic) Neurologic Exam: alert, oriented x 3, cooperative, normal mood/affect Skin Exam: normal color, warm, dry, No rash Wound Assessment: Skin/Wound Assessment Wound/Incision Assessment Start: 02/12/20 21:41 Text: Status: Active Freq: Q6H Protocol: Document 02/15/20 15:00 [facility] (Rec: 02/15/20 15:43 [facility] [id number]) Wound/Incision Assessment Lower Back Wound Assessment Shift Assessment Wound Type Pressure Ulcer Wound Stage Stage I Drainage Amount None Length (cm) (cm) 0.5 Width (cm) (cm) 0.5 Surrounding Tissue [place] Comment Open area to lower bony spine. Shear vs pressure. Barrier cream applied. hx of redness to coccyx. Left Posterior Back Wound Assessment Shift Assessment Wound Type Pressure Ulcer Wound Stage Stage I Drainage Amount None General Appearance Reddened Length (cm) (cm) 1.5 Width (cm) (cm) 1.5 Surrounding Tissue [place] Comment Barrier cream applied. Multiple skin tears and bruises all over body Wound Photo Photo Taken No Eye Exam: No scleral icterus Ears, Nose, Throat Exam: moist mucous membranes Respiratory Exam: respiratory distress, diminished breath sounds, crackles/rales, wheezing, other (tripod position) Cardiovascular Exam: regular rate/rhythm, No murmur, No friction rub, No gallop Gastrointestinal/Abdomen Exam: soft, normal bowel sounds, No tenderness, No distention Extremity Exam: other (skin tears lower legs bilaterally with gauze dressings intact.), No pedal edema, No swelling OBJECTIVE DATA Vital Signs: Vital Signs - 24 hr Temp Pulse Resp BP Pulse Ox 02/15/20 15:06 84 20 95 02/15/20 12:00 97.7 F 87 18 101/54 93 L 02/15/20 11:09 89 20 97 02/15/20 07:35 96.5 F 94 H 20 163/79 93 L 02/15/20 06:52 86 18 93 L 02/15/20 04:13 111 H 22 93 L 02/15/20 03:44 98.5 F 107 H 22 165/77 91 L 02/15/20 00:49 102 H 22 85 L 02/14/20 23:45 98.4 F 82 17 136/73 95 02/14/20 22:15 106 H 24 89 L 02/14/20 19:42 106 H 24 95 02/14/20 19:38 98.3 F 98 H 26 H 139/79 90 L Pain Assessment - Last Documented Pain Intensity 6 Intake and Output: Intake & Output 02/13/20 02/14/20 02/15/20 02/16/20 11:59 11:59 11:59 11:59 Intake Total 1345 2638 1088 360 Output Total 250 1050 2000 1450 Balance 1095 1588 -912 -1090 Weight 51.4 kg 49 kg 50.4 kg Lab Results: Lab Results-Last 24 Hours 02/15/20 Range/Units 12:45 NT-Pro-B Natriuret Pep 5040 H (0-1800) pg/mL Radiology Exams: Radiology Procedures Category Date Time Status CHEST 1 VIEW (PORTABLE) Routine Exams 02/15/20 10:57 Taken ECHO W/2D AND DOPPLER [US] Routine Exams 02/16/20 08:00 Ordered Assessment/Plan (1) Cachectic Current Visit: Yes Status: Acute Assessment & Plan: Patient has muscle wasting and BMI is 15.5. Will encourage patient to eat frequently Code(s): R64 - CACHEXIA (2) Choking Current Visit: Yes Status: Acute Assessment & Plan: Patient has been choking and this has been witnessed by staff. He will barium swallow study in am. Patient has high aspiration risk. Discussed with family member present that patient may not agree to the type of diet changes needed to avoid choking. Code(s): T17.308A - UNSP FOREIGN BODY IN LARYNX CAUSING OTH INJURY, INIT ENCNTR (3) Acute on chronic respiratory failure with hypoxemia Current Visit: Yes Status: Acute Assessment & Plan: Patient is requiring oxygen and is not improving on current therapy. Will continue nebs steroids and antibiotics. Unsure if patient will be able to ween off of oxygen but will continue to monitor. Code(s): J96.21 - ACUTE AND CHRONIC RESPIRATORY FAILURE WITH HYPOXIA (4) COPD exacerbation Current Visit: Yes Status: Acute Assessment & Plan: Patient is on duonebs steroids antibiotics chest flutter therapy and incentive spirometry. Will get repeat chest xray as patient is now requiring oxygen by nasal cannula. Mucinex was added for productive cough. Code(s): J44.1 - CHRONIC OBSTRUCTIVE PULMONARY DISEASE W (ACUTE) EXACERBATION (5) CHF exacerbation Current Visit: No Status: Acute Onset Date: ~03/23/18 Assessment & Plan: Patient was started on IVF and has hx of chf. Will get echo. BNP was elevated this am. No visible swelling in lower extremities. Did give one dose of lasix to help with some diuresis and see if that improves his resp status Code(s): I50.9 - HEART FAILURE, UNSPECIFIED (6) HTN (hypertension) Current Visit: No Status: Chronic Qualifiers: Hypertension type: essential hypertension Qualified Code(s): I10 - Essential (primary) hypertension Assessment & Plan: Will continue on routine home meds. Patient will be getting one dose of lasix to help with elevated bp as well. Code(s): I10 - ESSENTIAL (PRIMARY) HYPERTENSION (7) Tobacco abuse disorder Current Visit: No Status: Chronic Assessment & Plan: Patient continues to smoke daily at home. Was given a nicotine patch at lowest dose because he said the higher dose ones make him crazy Code(s): Z72.0 - TOBACCO USE (8) UTI (urinary tract infection) Current Visit: Yes Status: Acute Assessment & Plan: blood was noted in urine UA culture demonstrated proteus and patient is currently on antibiotics for this Code(s): N39.0 - URINARY TRACT INFECTION, SITE NOT SPECIFIED
--- NOTE | 2020-02-15 19:37 | XRAY ---
Indication: Lung crackles. COPD. Comparison: February 12, 2020. Portable chest again demonstrates COPD with new minimal right base infiltrate versus atelectasis. Remaining heart and lungs unremarkable with stable incidental calcified granulomas.
[2020-02-16] MEDS: TYLENOL 325 MG PO PRN ×2 (04:37→08:26)
[2020-02-16 05:52] LABS: ALKALINE PHOSPHATASE 89 U/L (38-126); ANION GAP 6.7 MEQ/L (5-15); BLOOD UREA NITROGEN 18 mg/dL (9-20); CHLORIDE 100 mmol/L (98-107); Calcium 7.7 mg/dL (8.4-10.2); Carbon Dioxide 30 mmol/L (22-30); Creatinine 1 0.54 mg/dL (0.66-1.25); EST GLOMERULAR FILTRATION RATE > 60.0 ML/MIN; Glucose 148 mg/dL (74-106); Potassium 4.3 mmol/L (3.5-5.1); SGOT/AST 33 U/L (17-59); SGPT/ALT 33 U/L (0-50); SODIUM 132 mmol/L (137-145); Total Protein 5.2 g/dL (6.3-8.2)
[2020-02-16 05:57] LABS: Hematocrit 31.3 % (42-50); Hemoglobin 9.6 gm/dl (12.5-18.0); Mean Cell Volume 98.7 fl (78-100); Mean Corpuscular Hemoglobin 30.3 pg (26-32); Mean Corpuscular Hgb Concent. 30.7 g/dl (32-36); Mean Platelet Volume 9.5 fl (7.5-11.0); Platelet Count 267 K/mm3 (150-450); Red Blood Count 3.17 M/mm3 (4.1-5.6); Red Cell Distribution Width 17.8 % (11.5-14.0); White Blood Count 11.2 K/mm3 (4.0-10.5)
[2020-02-16] MEDS: DUONEB 0.5-3 MG/3 ml Neb IH SCH ×4 (06:23→20:08)
[2020-02-16] MEDS: Advair Hfa 115/21 Common canister IH SCH ×2 (06:23→20:08)
[2020-02-16] MEDS: solu-MEDROL 125 MG IV SCH ×4 (06:33→23:44)
[2020-02-16] MEDS: Sodium Chloride 0.9% 1000 ML 1,000 ML IV SCH (07:51)
[2020-02-16] MEDS: Mucinex 600MG ER Tabs PO SCH ×2 (08:26→21:17)
--- NOTE | 2020-02-16 10:35 | XRAY ---
Indication: Aspiration. Modified barium swallow study was performed by the department of speech therapy with fluoroscopic assistance provided. Patient ingested multiple consistencies of liquids and solids. Full report and recommendations will be reported separately. Approximately 1 minute 50 seconds of fluoroscopy used.
[2020-02-16] MEDS: NICOTINE PATCH 7MG TD SCH (11:18)
[2020-02-16] MEDS: ROCEPHIN 1 Gm-D5w 50 ml Bag** 1 G/50 ML IVPB IV SCH (11:18)
[2020-02-16] MEDS: Zithromax 500 MG/ 250 ML NaCl Premix 500 MG/250 ML IVPB IV SCH (12:57)
--- NOTE | 2020-02-16 19:03 | PCM.NOTE ---
Date and Time: 02/16/201856 Subjective Assessment: 89 yr old male seen and examined this am. Patient was sleeping upon entering the room. He reports that he feels the same today. He is still coughing. He reports he is still SOB. No other concerns today. - Review of Systems Constitutional: No Symptoms Ears, Nose, & Throat: Other (hard of hearing) Respiratory: Cough, Short Of Breath, Wheezing Cardiac: No Chest Pain, No Edema Abdominal/Gastrointestinal: No Symptoms Skin: Other (skin tears lower extremities bilaterally) All Other Systems: Unable due to condition (limited review of systems) Objective Exam General Appearance: mild distress, cachetic Neurologic Exam: alert, cooperative, normal mood/affect, other (speech difficult to understand) Skin Exam: normal color, warm, dry, other (lower extremies with skin tears and ecchymosis. Wrapped with gauze) Wound Assessment: Skin/Wound Assessment Wound/Incision Assessment Start: 02/12/20 21:41 Text: Status: Active Freq: Q6H Protocol: Document 02/16/20 15:00 MARLENE (Rec: 02/16/20 15:03 [id number]) Wound/Incision Assessment Lower Back Wound Assessment Shift Assessment Wound Type Pressure Ulcer Wound Stage Stage I Drainage Amount None Length (cm) (cm) 0.5 Width (cm) (cm) 0.5 Surrounding Tissue [place] Comment Open area to lower bony spine. Shear vs pressure. Barrier cream applied. hx of redness to coccyx. Left Posterior Back Wound Assessment Shift Assessment Wound Type Pressure Ulcer Wound Stage Stage I Drainage Amount None General Appearance Reddened Length (cm) (cm) 1.5 Width (cm) (cm) 1.5 Surrounding Tissue [place] Comment Barrier cream applied. Multiple skin tears and bruises all over body Wound Photo Photo Taken No Eye Exam: No scleral icterus Ears, Nose, Throat Exam: moist mucous membranes Respiratory Exam: respiratory distress (Patient still requiring oxygen 3l by n jacinta cannula. Still having increased work of breathing even at rest. Significant wheeze on exam.), wheezing, No normal breath sounds, No lungs clear Cardiovascular Exam: murmur, other (has had occasional mild tachycardia) Extremity Exam: No pedal edema, No swelling OBJECTIVE DATA Vital Signs: Vital Signs - 24 hr Temp Pulse Resp BP Pulse Ox 02/16/20 16:00 97.6 F 83 20 126/60 91 L 02/16/20 14:57 73 22 91 L 02/16/20 12:00 97.6 F 93 H 18 132/63 96 02/16/20 11:23 103 H 26 H 96 02/16/20 07:32 98.2 F 75 20 100/60 96 02/16/20 06:32 70 24 93 L 02/16/20 04:07 98.3 F 91 H 26 H 135/69 93 L 02/15/20 23:51 98.1 F 86 24 128/68 98 02/15/20 23:21 71 22 98 02/15/20 20:05 97.9 F 80 22 155/73 97 02/15/20 19:34 83 20 97 Pain Assessment - Last Documented Pain Intensity 8 Pain Scale Used 0-10 Pain Scale Intake and Output: Intake & Output 02/14/20 02/15/20 02/16/20 02/17/20 11:59 11:59 11:59 11:59 Intake Total 2638 1088 810 60 Output Total 1050 2000 1900 Balance 5888 912 1090 60 Weight 49 kg 50.4 kg 51.8 kg 51.8 kg Lab Results: Lab Results-Last 24 Hours 02/16/20 02/16/20 Range/Units 04:30 04:30 WBC 11.2 H (4.0-10.5) K/mm3 RBC 3.17 L (4.1-5.6) M/mm3 Hgb 9.6 L (12.5-18.0) gm/dl Hct 31.3 L (42-50) % MCV 98.7 (78-100) fl MCH 30.3 (26-32) pg MCHC 30.7 L (32-36) g/dl RDW 17.8 H (11.5-14.0) % Plt Count 267 (150-450) K/mm3 MPV 9.5 (7.5-11.0) fl Sodium 132 L (137-145) mmol/L Potassium 4.3 (3.5-5.1) mmol/L Chloride 100 (98-107) mmol/L Carbon Dioxide 30 (22-30) mmol/L Anion Gap 6.7 (5-15) MEQ/L BUN 18 (9-20) mg/dL Creatinine 0.54 L (0.66-1.25) mg/dL Estimated GFR > 60.0 ML/MIN Glucose 148 H (74-106) mg/dL Calcium 7.7 L (8.4-10.2) mg/dL Total Bilirubin 0.30 (0.2-1.3) mg/dL AST 33 (17-59) U/L ALT 33 (0-50) U/L Alkaline Phosphatase 89 (38-126) U/L Serum Total Protein 5.2 L (6.3-8.2) g/dL Albumin 3.0 L (3.5-5.0) g/dL Radiology Exams: Radiology Procedures Category Date Time Status CHEST 1 VIEW (PORTABLE) Routine Exams 02/15/20 10:57 Completed ECHO W/2D AND DOPPLER [US] Routine Exams 02/16/20 08:00 Taken MODIFIED BARIUM SWALLOW (RAD) [MODIFIED BARIUM SWALLOW Exams 02/16/20 10:01 Completed EXAM] Routine Multi-Disciplinary Progress Notes: Multi-Disciplinary Progress Notes 02/16/20 10:47 Case Management Note by Loretta Marie PATIENT STILL ACUTELY ILL- HAVING BARIUM SWALLOW TODAY- WILL CONTINUE TO FOLLOW FOR NEEDS AT TIME OF DC Initialized on 02/16/20 10:47 - END OF NOTE Assessment/Plan (1) Cachectic Current Visit: Yes Status: Acute Assessment & Plan: Will try to encourage eating as much as possible. Patient is cachetic due to chronic COPD. Code(s): R64 - CACHEXIA (2) Choking Current Visit: Yes Status: Acute Assessment & Plan: Swallow study performed. [facility] soft diet recommended. No thickened liquids. Patient will require swallow training. Patient did have aspiration on exam. Code(s): T17.308A - UNSP FOREIGN BODY IN LARYNX CAUSING OTH INJURY, INIT ENCNTR (3) Acute on chronic respiratory failure with hypoxemia Current Visit: Yes Status: Acute Assessment & Plan: Patient continues to require oxygen. Patient will not be able to be discharged on home oxygen as he continues to smoke and lives alone. He wants to go home so he can smoke. Family has requested to leave hospital briefly to allow patient to smoke. He has been unable to ween of oxygen and had chest xray that showed showed new R lung infiltrate even on antibiotics. Will have to discuss with family what their goal for patient is and how they want to proceed. Code(s): J96.21 - ACUTE AND CHRONIC RESPIRATORY FAILURE WITH HYPOXIA (4) COPD exacerbation Current Visit: Yes Status: Acute Code(s): J44.1 - CHRONIC OBSTRUCTIVE PULMONARY DISEASE W (ACUTE) EXACERBATION (5) CHF exacerbation Current Visit: No Status: Acute Onset Date: ~03/23/18 Assessment & Plan: Patient had echo today results pending. Code(s): I50.9 - HEART FAILURE, UNSPECIFIED (6) HTN (hypertension) Current Visit: No Status: Chronic Qualifiers: Hypertension type: essential hypertension Qualified Code(s): I10 - Essential (primary) hypertension Assessment & Plan: Will continue with home medications. Code(s): I10 - ESSENTIAL (PRIMARY) HYPERTENSION (7) Tobacco abuse disorder Current Visit: No Status: Chronic Assessment & Plan: patient has low dose nicotine patch. he still wants to leave hospital so he can smoke. Code(s): Z72.0 - TOBACCO USE (8) UTI (urinary tract infection) Current Visit: Yes Status: Acute Assessment & Plan: on antibiotics for UTI Code(s): N39.0 - URINARY TRACT INFECTION, SITE NOT SPECIFIED
[2020-02-16] MEDS: Sodium Chloride 0.9% 10 ML FLUSH Syringe IV SCH (21:17)
[2020-02-17] MEDS: DUONEB 0.5-3 MG/3 ml Neb IH PRN (04:15)
[2020-02-17] MEDS: solu-MEDROL 125 MG IV SCH ×3 (05:21→17:09)
[2020-02-17] MEDS: Sodium Chloride 0.9% 10 ML FLUSH Syringe IV SCH ×2 (05:22→14:07)
[2020-02-17] MEDS: DUONEB 0.5-3 MG/3 ml Neb IH SCH ×4 (07:39→19:47)
[2020-02-17] MEDS: Advair Hfa 115/21 Common canister IH SCH ×2 (07:39→19:47)
[2020-02-17] MEDS: Mucinex 600MG ER Tabs PO SCH ×2 (09:13→22:07)
[2020-02-17] MEDS: TYLENOL 325 MG PO PRN ×2 (09:13→18:05)
[2020-02-17] MEDS: ROCEPHIN 1 Gm-D5w 50 ml Bag** 1 G/50 ML IVPB IV SCH (09:14)
[2020-02-17] MEDS: Zithromax 500 MG/ 250 ML NaCl Premix 500 MG/250 ML IVPB IV SCH (09:15)
[2020-02-17] MEDS: NICOTINE PATCH 7MG TD SCH (09:15)
--- NOTE | 2020-02-17 19:44 | PCM.NOTE ---
Date and Time: 02/17/201918 Subjective Assessment: 89 yr old male seen and examined this am. Son was present later at bedside. Did discuss that patient has been slow to improve. Patient's chest xray was worse. Patient's lungs sound the same and he has still required oxygen. I discussed the option of hospice. Patient's son wanted to discuss with family members prior to making decision. Patient would like to go home so he can smoke. He still reports cough and difficulty breathing. - Review of Systems Constitutional: No Fever Respiratory: Cough, Short Of Breath, Wheezing Cardiac: No Chest Pain, No Edema All Other Systems: Unable due to condition (limited ros due to patient condition) Objective Exam General Appearance: mild distress, other (Patient was sleepy this am) Neurologic Exam: alert, cooperative, normal mood/affect Skin Exam: normal color, warm, dry, other (skin tears on anterior calderon legs wrapped with gauze.), No rash Wound Assessment: Skin/Wound Assessment Wound/Incision Assessment Start: 02/12/20 21:41 Text: Status: Active Freq: Q6H Protocol: Document 02/17/20 15:00 MARLENE (Rec: 02/17/20 15:26 [id number]) Wound/Incision Assessment Lower Other Wound Assessment Shift Assessment Wound Type Skin Tear Wound Stage Non Pressure Wound Dressing Status Dry & Intact Comment MULTIPLE SKIN TEARS NOTED TO BILATERAL LEGS Lower Back Wound Assessment Shift Assessment Wound Type Pressure Ulcer Wound Stage Stage I Drainage Amount None Length (cm) (cm) 0.5 Width (cm) (cm) 0.5 Surrounding Tissue [place] Comment BARRIER CREAM APPLIED Left Posterior Back Wound Assessment Shift Assessment Wound Type Pressure Ulcer Wound Stage Stage I Drainage Amount None General Appearance Reddened Length (cm) (cm) 1.5 Width (cm) (cm) 1.5 Surrounding Tissue [place] Comment BARRIER CREAM APPLIED Wound Photo Photo Taken No Eye Exam: No scleral icterus Ears, Nose, Throat Exam: moist mucous membranes Neck Exam: normal inspection Respiratory Exam: respiratory distress, crackles/rales, wheezing Cardiovascular Exam: regular rate/rhythm, normal heart sounds, No murmur, No friction rub, No gallop Gastrointestinal/Abdomen Exam: soft, normal bowel sounds, No distention Extremity Exam: No pedal edema, No swelling OBJECTIVE DATA Vital Signs: Vital Signs - 24 hr Temp Pulse Resp BP Pulse Ox 02/17/20 16:00 98.1 F 103 H 22 133/88 91 L 02/17/20 14:37 100 H 24 90 L 02/17/20 11:57 97.5 F 103 H 22 119/58 90 L 02/17/20 10:39 72 20 02/17/20 07:43 80 22 93 L 02/17/20 07:42 97.7 F 94 H 20 130/70 95 02/17/20 04:31 86 20 95 02/17/20 04:00 97.6 F 86 20 115/56 95 02/17/20 00:00 97.6 F 80 16 121/58 94 L 02/16/20 21:08 87 22 96 02/16/20 20:00 98.2 F 96 H 16 126/64 92 L Oxygen-Last 24 hours Oxygen Flowrate (L/min)-RT 2 Pain Assessment - Last Documented Pain Intensity 6 Pain Scale Used 0-10 Pain Scale Intake and Output: Intake & Output 02/15/20 02/16/20 02/17/20 02/18/20 11:59 11:59 11:59 11:59 Intake Total 1088 810 580 120 Output Total 1999 1900 850 Balance -912 -1090 -270 120 Weight 50.4 kg 51.8 kg 51.8 kg Lab Results: Lab Results-Last 24 Hours 02/16/20 Range/Units 04:30 Lead 2 (0-4) ug/dL Radiology Exams: Radiology Procedures Category Date Time Status ECHO W/2D AND DOPPLER [US] Routine Exams 02/16/20 08:00 Taken MODIFIED BARIUM SWALLOW (RAD) [MODIFIED BARIUM SWALLOW Exams 02/16/20 10:01 Completed EXAM] Routine Multi-Disciplinary Progress Notes: Multi-Disciplinary Progress Notes 02/17/20 11:44 Case Management Note by Venessa Greenwood Addendum entered by Venessa Greenwood RN 02/17/20 11:48: PHONED AND UPDATED [facility], SPOKE WITH FRANDY, CLINICAL PRODUCTION DEPARTMENT SUPERVISOR. FRANDY STATES THEY WILL NOT BE ABLE TO CONTINUE TO FOLLOW PT ON DISCHARGE D/T UNABLE TO MEET PT'S NEEDS AT HOME. PHONED STEVEN AND UPDATED HIM ON [facility] STATING THEY CANNOT FOLLOW UP WITH PT AT HOME. SON STATES OK, HE WILL SPEAK WITH [facility] AND GET BACK TO ME ON WHAT THEY WOULD LIKE TO DO WITH PLAN FOR D/C AND HOSPICE CARE. Original Note: SPOKE WITH SON STEVEN, STATE THEY WANT TO TAKE PT HOME TOMORROW, WITH CURRENT PLAN OF HOME HEALTH CARE AND WILL RE-EVALUATE IN 3-4 DAYS IF THEY NEED HOSPICE CARE AT THAT TIME. DISCUSSED SETTING UP CONSULT WITH HOSPICE PRIOR TO LEAVING TO ASSIST FAMILY, BUT SON MAXIMILIANIES, SAID HE WOULD LIKE TO TAKE PT HOME AT CURRENT LEVEL AND WILL RE-EVALUATE HIMSELF AT A LATER TIME. Initialized on 02/17/20 11:44 - END OF NOTE 02/17/20 08:44 Case Management Note by Venessa Greenwood SPOKE WITH SON, STEVEN. DR SALINAS SPOKE WITH SON PRIOR AND SON WITH DR SALINAS DISCUSSED AND DECIDED PT WOULD BENEFIT FROM HOSPICE CARE. STEVEN STATES HE WILL PHONE OTHER SIBILINGS TO DECIDE ON WHAT COMPANY THEY WOULD LIKE TO USE AND WILL PHONE DISCHARGE PLANNING LATER TODAY WITH DECISION PRIOR TO HOSPICE EVAL. WILL CONTINUE TO FOLLOW UP Initialized on 02/17/20 08:44 - END OF NOTE Assessment/Plan (1) Cachectic Current Visit: Yes Status: Acute Code(s): R64 - CACHEXIA (2) Choking Current Visit: Yes Status: Acute Code(s): T17.308A - UNSP FOREIGN BODY IN LARYNX CAUSING OTH INJURY, INIT ENCNTR (3) Acute on chronic respiratory failure with hypoxemia Current Visit: Yes Status: Acute Code(s): J96.21 - ACUTE AND CHRONIC RESPIRATORY FAILURE WITH HYPOXIA (4) COPD exacerbation Current Visit: Yes Status: Acute Code(s): J44.1 - CHRONIC OBSTRUCTIVE PULMONARY DISEASE W (ACUTE) EXACERBATION (5) CHF exacerbation Current Visit: No Status: Acute Onset Date: ~03/23/18 Code(s): I50.9 - HEART FAILURE, UNSPECIFIED (6) HTN (hypertension) Current Visit: No Status: Chronic Qualifiers: Hypertension type: essential hypertension Qualified Code(s): I10 - Essential (primary) hypertension Code(s): I10 - ESSENTIAL (PRIMARY) HYPERTENSION (7) Tobacco abuse disorder Current Visit: No Status: Chronic Code(s): Z72.0 - TOBACCO USE (8) UTI (urinary tract infection) Current Visit: Yes Status: Acute Code(s): N39.0 - URINARY TRACT INFECTION, SITE NOT SPECIFIED
[2020-02-18] MEDS: solu-MEDROL 125 MG IV SCH ×3 (00:02→12:29)
[2020-02-18] MEDS: Sodium Chloride 0.9% 10 ML FLUSH Syringe IV SCH ×3 (00:02→13:06)
[2020-02-18] MEDS: DUONEB 0.5-3 MG/3 ml Neb IH SCH ×2 (06:42→10:19)
[2020-02-18] MEDS: Advair Hfa 115/21 Common canister IH SCH (06:43)
--- NOTE | 2020-02-18 09:34 | ECHO ---
DATE OF PROCEDURE: 02/16/2020 CLINICAL INFORMATION: Elevated BNP. The M-mode 2D, and Doppler echocardiogram including color flow Doppler is technically difficult. The patient was unable to rotate onto the side. The left ventricle is normal in size at 3.6 cm. There is no thrombus present. The septal wall thickness is increased at 1.6 cm. The left ventricular posterior wall is also thickened. There is accentuated contractility of the left ventricle. The ejection fraction calculated to be 63%. There is no thrombus present. The right ventricle is grossly normal. The left atrium is normal in size. The interatrial septum is intact. The right atrium is normal. The aortic valve opens well. It is trileaflet. There is mild sclerosis present. There is mild to moderate aortic regurgitation present. There is mild to moderate mitral regurgitation. There is moderate tricuspid regurgitation. The right ventricular systolic pressure is calculated to be 53 mm of [place]. The pulmonic valve is not well visualized. The aortic root is normal at 3.1 cm. There is no pericardial effusion present. IMPRESSION: 1) TECHNICALLY DIFFICULT ECHOCARDIOGRAM. 2) ACCENTUATED CONTRACTILITY OF THE LEFT VENTRICLE. 3) MODERATE CONCENTRIC LEFT VENTRICULAR HYPERTROPHY. 4) MILD TO MODERATE AORTIC REGURGITATION. 5) MODERATE MITRAL REGURGITATION. 6) MODERATE TRICUSPID REGURGITATION. 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
[2020-02-18] MEDS: Zithromax 500 MG/ 250 ML NaCl Premix 500 MG/250 ML IVPB IV SCH (10:28)
[2020-02-18] MEDS: ROCEPHIN 1 Gm-D5w 50 ml Bag** 1 G/50 ML IVPB IV SCH (10:28)
[2020-02-18] MEDS: Mucinex 600MG ER Tabs PO SCH (10:35)
[2020-02-18] MEDS: NICOTINE PATCH 7MG TD SCH (10:42)
--- NOTE | 2020-02-18 10:52 | PCM.DS ---
Discharge Summary Date of Admission: 02/13/20 08:09 Date of Discharge: 02/18/20 Admitting Physician: SABINO TALBERT Primary Care Provider: SABINO TALBERT Allergies Allergies No Known Drug Allergies Allergy (Verified 02/12/20 18:03) Hospital Summary - Hospital Course Hospital Course: 89 year old male with advanced copd, he is wheelchair bound from prior hip fracture and generalized decline from advanced copd, he presented with increasing shortness of breath, cough and wheezing typical for exacerbation. his cough has not been productive, no fever. Patient was admitted to medical floor.He was started on antibiotics breathing txs and steroids. He was not showing much improvement and had increased work of breathing. He had repeat chest xray that showed a new R sided infiltrated. Patient had bnp ordered IV fluids discontinued. He was given a dose of lasix for worsening CHF. He was started on mucinex chest flutter and incentive spirometry. Patient was also choking during meals. He had a swallow study which showed that at times he was aspirating. Patient was given instructions for swallowing and [facility] soft diet recommended. Patient was requiring oxygen during admission and was weened down but was back on oxygen this am. Discussed with family member about going home with hospice. I explained that the patient was really not improving. He was requiring supplemental oxygen and because he wants to smoke I cant send him on oxygen. His repeat chest xray showed new infiltrate on R side. He is a high aspiration risk. Patient's son wanted to discuss with rest of the family. Family was initially opposed to hospice and wanted patient to go home with his usual home health care. Home health reported that they would not accept him back marii use he was requiring a higher level of care. Patient would like to go home so he can resume smoking. Patient's family this morning agreed that he could go home with hospice. He was still requiring oxygen this am but cant send him home on oxygen due to risk of harm with smoking. He will go home on steroid taper duonebs and antibiotics. - Vitals & Intake/Output Vital Signs: Vital Signs Temperature 97.8 F 02/18/20 07:43 Pulse Rate 95 H 02/18/20 10:24 Respiratory Rate 24 02/18/20 10:24 Blood Pressure 143/74 02/18/20 07:43 O2 Sat by Pulse Oximetry 91 L 02/18/20 10:24 Intake & Output: Intake & Output 02/15/20 02/16/20 02/17/20 02/18/20 11:59 11:59 11:59 11:59 Intake Total 1088 810 580 960 Output Total 1999 5543 850 721 Balance -912 -1090 -270 235 Weight 50.4 kg 51.8 kg 51.8 kg 52.5 kg - Lab Result Diagrams: 02/16/20 04:30 02/16/20 04:30 Lab Results-Last 24 Hrs: Lab Results-Last 24 Hours 02/16/20 Range/Units 04:30 Lead 2 (0-4) ug/dL Micro Results-Entire Visit: Microbiology 02/12/20 18:15 Blood Culture Gram Stain - Final Blood Not Reportable Blood Culture - Final NO GROWTH 02/12/20 18:21 Blood Culture Gram Stain - Final Blood Not Reportable Blood Culture - Final NO GROWTH 02/12/20 20:00 Urine Culture - Final Urine, Void Proteus Mirabilis - Radiology Exams Ordered Rad Exams-Entire Visit: Radiology Procedures Category Date Time Status MODIFIED BARIUM SWALLOW (RAD) [MODIFIED BARIUM SWALLOW Exams 02/16/20 10:01 Completed EXAM] Routine - Procedures and Test Procedures and Tests throughout Hospitalization: Therapy Orders & Screens 02/12/20 20:17 Respiratory Therapy Assessment DAILY Comment: Diagnosis: COPD 02/15/20 00:49 Oxygen Oxymizer LPM 2 lpm Comment: Diagnosis: COPD 02/16/20 08:00 Modified Barium Swallow Eval .as ordered Comment: Physician Instructions: Reason For Exam: ST Eval & Treat ( Order) .as ordered Comment: Physician Instructions: Reason For Exam: Evaluate: Yes Treat: Yes Reason for Eval: possible aspiration Diagnosis: ADVANCED COPD Discharge Exam General Appearance: mild distress, cachetic Neurologic Exam: alert, cooperative, normal mood/affect Eye Exam: No scleral icterus Ears, Nose, Throat Exam: moist mucous membranes Respiratory Exam: diminished breath sounds, crackles/rales (slightly improved from yesterday), wheezing Cardiovascular Exam: regular rate/rhythm, normal heart sounds, No murmur, No friction rub, No gallop Gastrointestinal/Abdomen Exam: soft, normal bowel sounds, No tenderness, No distention Extremity Exam: No pedal edema, No swelling Skin Exam: normal color, warm, dry, ecchymosis, other (multiple skin tears bilateral lower extremities. Wrapped in gauze), No rash Wound Assessment: Skin/Wound Assessment Wound/Incision Assessment Start: 02/12/20 21:41 Text: Status: Active Freq: Q6H Protocol: Document 02/18/20 03:00 SG (Rec: 02/18/20 04:17 SG [id number]) Wound/Incision Assessment Lower Other Wound Assessment Shift Assessment Wound Type Skin Tear Wound Stage Non Pressure Wound Dressing Status Dry & Intact Comment MULTIPLE SKIN TEARS NOTED TO BILATERAL LEGS. DRESSING CDI. Lower Back Wound Assessment Shift Assessment Wound Type Skin Tear Wound Stage Stage I Drainage Amount None Length (cm) (cm) 0.5 Width (cm) (cm) 0.5 Surrounding Tissue [place] Comment BARRIER CREAM APPLIED. FRICTION SHEAR NOTED. REMAINS TRUE Left Posterior Back Wound Assessment Shift Assessment Wound Type Pressure Ulcer Wound Stage Stage I Drainage Amount None General Appearance Reddened Length (cm) (cm) 1.5 Width (cm) (cm) 1.5 Surrounding Tissue [place] Comment BARRIER CREAM APPLIED Final Diagnosis/Problem List - Final Discharge Diagnosis/Problem (1) Cachectic Current Visit: Yes Status: Acute Assessment & Plan: Patient will continue to eat as tolerated.This is likely a result of his COPD Code(s): R64 - CACHEXIA (2) Choking Current Visit: Yes Status: Acute Assessment & Plan: Patient was given a diet for aspiration risk. He will be going home with hospice and eat as tolerated. Code(s): T17.308A - UNSP FOREIGN BODY IN LARYNX CAUSING OTH INJURY, INIT ENCNTR (3) Acute on chronic respiratory failure with hypoxemia Current Visit: Yes Status: Acute Assessment & Plan: Will not discharge on oxygen due to concerns of smoking while on oxygen. Patient will go home on hospice. Code(s): J96.21 - ACUTE AND CHRONIC RESPIRATORY FAILURE WITH HYPOXIA (4) COPD exacerbation Current Visit: Yes Status: Acute Assessment & Plan: Will continue to taper off of steroids and give a few more doses of antibiotics. Patient can continue with duonebs 4 times a day. Code(s): J44.1 - CHRONIC OBSTRUCTIVE PULMONARY DISEASE W (ACUTE) EXACERBATION (5) CHF exacerbation Current Visit: No Status: Acute Onset Date: ~03/23/18 Assessment & Plan: Echo showed good EF. There is regurgitation of most the valves and pulm HTN noted as well. Code(s): I50.9 - HEART FAILURE, UNSPECIFIED (6) HTN (hypertension) Current Visit: No Status: Chronic Assessment & Plan: Would resume home meds if needed. Code(s): I10 - ESSENTIAL (PRIMARY) HYPERTENSION (7) Tobacco abuse disorder Current Visit: No Status: Chronic Code(s): Z72.0 - TOBACCO USE (8) UTI (urinary tract infection) Current Visit: Yes Status: Acute Assessment & Plan: Patient's tx should be completed Code(s): N39.0 - URINARY TRACT INFECTION, SITE NOT SPECIFIED - Discharge Condition: Fair Prescriptions: New Prednisone 20 mg [Deltasone 20 mg] 20 mg PO DAILY 10 Days #21 tablet Doxycycline Hyclate 100 mg [Vibramycin 100 MG] 100 mg PO BID 3 Days #6 tab Continue Meloxicam 7.5 mg [Mobic 7.5 MG] 7.5 mg PO HS Alendronate Sodium 70 mg [Fosamax 70 MG] 70 mg PO WEEKLY Albuterol Sulfate [Proventil Hfa] 2 puffs IH Q4-6HPRN PRN #2 [id number] PRN Reason: Shortness Of Breath Budesonide/Formoterol Fumarate [Symbicort 160-4.5 Mcg Inhaler] 1 puff IH BID Albuterol/Ipratropium 3ml Neb* [DUONEB 0.5-3 MG/3 ml Neb] 3 ml IH Q4-6HPRN PRN #100 ampul.neb PRN Reason: Cough Vit A/Vit C/Vit E/Zinc/Copper [Preservision Areds Softgel] 2 tab PO DAILY Budesonide [Pulmicort] 1 mg IH UD Acetaminophen 500 mg [Tylenol Extra Strength 500 mg] 1,000 mg PO DAILY Instructions: Chronic Obstructive Pulmonary Disease (COPD) (DC) Follow up with: SABINO TALBERT MD [Primary Care Provider] - 1 Week
[2020-02-18 12:14] VITALS: BP 169/74; PULSE 106; O2SAT 96
== END 2020-02-18 14:58 | disposition home or self-care (01) | DRG 947 ==
LOC: ED 17:29 → MED SURG 20:07 → OBSVTOIN 02-13 08:09
PROVIDERS: ADMIT Family Medicine; ATTEND Family Medicine
DX: R64 Cachexia (principal); J96.21 Acute and chronic respiratory failure with hypoxia; J44.1 Chronic obstructive pulmonary disease with (acute) exacerbation; N39.0 Urinary tract infection, site not specified; L89.101 Pressure ulcer of unspecified part of back, stage 1; I50.9 Heart failure, unspecified; I10 Essential (primary) hypertension; Z72.0 Tobacco use
CPT/HCPCS: 36000; 36415; 51702; 71045; 74230; 80048; 80053; 81001; 83655; 83735; 83880; 84134; 84484; 85025; 85027; 87040; 87077; 87086; 87186; 87631; 92611; 93005; 93041; 93268; 93306; 94640; 94760; 94762; 96365; 96374; 99285; G0378; U0003; 96375; J0456; J0696; J2930; A9270-GY